=== PATIENT | male | born 1955 | race Caucasian/White ===

== ENCOUNTER 2016-03-07 13:26 | Emergency (ER) | payer MEDICARE ==
[2016-03-07] MEDS ORDERED: Dexamethasone IV* 4 MG/ML 1 ML (4 MG) IV SLOW PU ONE (14:18)
[2016-03-07] MEDS ORDERED: diPHENhydraMINE IV* 50 MG/ML 1 ml VIAL (BENADRYL) IV ONE (14:18)
[2016-03-07 14:19] LABS: Hematocrit 40 % (42-52); Hemoglobin 12.9 g/dl (14.0-18.0); Mean Corpuscular HGB Conc 32 g/dl (31-36); Mean Corpuscular Hemoglobin 26 pg (27-31); Mean Corpuscular Volume 81 fL (80-94); Mean Platelet Volume 9 um3 (7.4-10.4); Red Cell Distribution Width 15 % (10.5-15); White Blood Count 6.6 10^3/ul (3.5-10.8)
[2016-03-07 14:38] LABS: Albumin 3.2 g/dL (3.2-5.2); BUN/Creatinine Ratio 12.9 (8-20); C Reactive Protein 126.32 mg/L (< 5.00); Calcium 9.6 mg/dL (8.6-10.3); EGFR African American 148.4 (>60); EGFR Non-African American 115.4 (>60); Globulin 3.9 g/dL (2-4); Magnesium 1.7 mg/dL (1.9-2.7); Potassium 3.9 mmol/L (3.5-5.0); Total Bilirubin 0.5 mg/dL (0.2-1.0); Total Protein 7.1 g/dL (6.4-8.9)
--- NOTE | 2016-03-07 14:48 | RAD ---
INDICATION: Short of breath COMPARISON: August 16, 2015 TECHNIQUE: PA and lateral dual-energy views were obtained. FINDINGS: Bones/Soft Tissues: There are no acute bony findings. Cardiomediastinal: The cardiomediastinal silhouette is normal. Lungs: There are no infiltrates. Pleura: There are no pleural effusions. Other: None IMPRESSION: NO ACTIVE DISEASE.
[2016-03-07 15:08] LABS: Urine Bacteria 1+ (Absent); Urine Bilirubin Negative (Negative); Urine Glucose Negative (Negative); Urine Nitrite Negative (Negative)
[2016-03-07] MEDS ORDERED: Famotidine TAB* 20 MG PO ONE (16:13)
[2016-03-07 16:55] VITALS: BP 143/89
--- NOTE | 2016-03-07 16:58 | ED ---
Praneeth Ayers Erika, scribed for Ahmet Verde MD on 03/07/16 at 1430 . Skin Complaint - HPI Summary HPI Summary: Patient is a 60-year-old male presenting to the ED with a CC of new-onset rash. Patient reports that he noticed the rash in the inguinal area starting on 2016, which has since spread up his abdomen to the left side of his chest and to his posterior neck. The rash is red and burning, and pt denies pruritus. Pt also reports SOB increased from baseline as well as chills. He denies fevers, lip swelling, tongue swelling, difficulty swallowing, and feeling like his airway is closing. He does note that he recently started taking Xopenex. 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 - Onset/Duration: Started Days Ago, Atraumatic, Still Present Timing: Constant Onset Severity: Mild Current Severity: Moderate Pain Intensity: 7 Pain Scale Used: 0-10 Numeric Skin Location: Diffuse - upper body, left side Character: Pain - burning, Redness Alleviating Symptom(s): Unknown Related History: Recent change in medication - Xopenex - Additional Pertinent History Primary Care Physician: RASHAWN - Allergy/Home Medications Allergies/Adverse Reactions: Allergies Allergy/AdvReac Type Severity Reaction Status Date / Time No Known Allergies Allergy Verified 12/31/13 12:08 Home Medications: Home Medications Cyanocobalamin TAB* [Vitamin B12 TAB*] 500 mcg PO DAILY 03/07/16 [History Confirmed 03/07/16] Ergocalciferol [Vitamin D2] 50,000 unit PO WEEKLY 03/07/16 [History Confirmed ] Exenatide [Bydureon] 2 mg SC DAILY 03/07/16 [History Confirmed 03/07/16] Fluticasone NASAL SPRAY 50MCG* [Flonase NASAL SPRAY 50MCG*] 1 spray INH DAILY [History Confirmed 03/07/16] Furosemide TAB* [Lasix TAB*] 20 mg PO DAILY 03/07/16 [History Confirmed 03/07/16 ] Ibuprofen TAB* [Motrin TAB* 800 MG] 800 mg PO Q6H PRN 03/07/16 [History Confirmed 03/07/16] Levalbuterol 0.63MG/3ML NEB* [Xopenex 0.63MG/3ML NEB*] 0.63 mg INH Q6H 03/07/16 [History Confirmed 03/07/16] LevoCETirizine TAB (NF) [Xyzal TAB (NF)] 5 mg PO DAILY 03/07/16 [History Confirmed 03/07/16] Potassium Chlor TAB* [Klor Con ER TAB*] 10 meq PO DAILY 03/07/16 [History Confirmed 03/07/16] predniSONE TAB* [Deltasone TAB*] 20 mg PO DAILY 03/07/16 [History Confirmed ] PMH/Surg Hx/FS Hx/Imm Hx Endocrine/Hematology History: Reports: Hx Anticoagulant Therapy - Xeralto, Hx Diabetes, Hx Thyroid Disease Cardiovascular History: Reports: Hx Atrial Fibrillation, Hx Congestive Heart Failure - 2007, Hx Hypercholesterolemia, Hx Hypertension - TAKING MEDICATION Denies: Other Cardiovascular Problems/Disorders - DENIES Respiratory History: Reports: Hx Asthma, Hx Chronic Obstructive Pulmonary Disease (COPD), Hx Pneumonia, Hx Sleep Apnea Denies: Other Respiratory Problems/Disorders - DENIES GI History: Reports: Hx Gastroesophageal Reflux Disease, Hx Gastrointestinal Bleed - Admitted with GI bleed History: Denies: Hx Renal Disease, Other Problems/Disorders - DENIES Sensory History: Reports: Hx Contacts or Glasses - did not bring to hospital Opthamlomology History: Reports: Hx Contacts or Glasses - did not bring to hospital - Surgical History Surgery Procedure, Year, and Place: EAR DRUM SURGERY [address] [place] [address] Hx Anesthesia Reactions: No Infectious Disease History: Yes Infectious Disease History: Denies: Traveled Outside the [place] in Last 30 Days - Family History Family History: Denies FHx anesthesia reaction - Social History Alcohol Use: Occasionally Alcohol Amount: 2-4 drinks/week Hx Substance Use: No Substance Use Type: Reports: None Hx Tobacco Use: Yes Smoking Status (MU): Former Smoker Review of Systems Positive: Chills. Negative: Fever Positive: Shortness Of Breath Positive: Rash - red and burning, no itching All Other Systems Reviewed And Are Negative: Yes Physical Exam - Summary Physical Exam Summary: VITAL SIGNS: Reviewed. GENERAL: Patient is an obese male who is lying comfortable in the stretcher. Patient is not in any acute respiratory distress. HEAD AND FACE: No signs of trauma. No ecchymosis, hematomas or skull depressions. No sinus tenderness. EYES: PERRLA, EOMI x 2, No injected conjunctiva, no nystagmus. EARS: Hearing grossly intact. Ear canals and tympanic membranes are within normal limits. MOUTH: Oropharynx within normal limits. NECK: Supple, trachea is midline, no adenopathy, no JVD, no carotid bruit, no c- spine tenderness, neck with full ROM. CHEST: Symmetric, no tenderness at palpation LUNGS: Clear to auscultation bilaterally. No wheezing or crackles. CVS: Regular rate and rhythm, S1 and S2 present, no murmurs or gallops appreciated. ABDOMEN: Soft, non-tender. No signs of distention. No rebound no guarding, and no masses palpated. Bowel sounds are normal. EXTREMITIES: FROM in all major joints, no edema, no cyanosis or clubbing. NEURO: Alert and oriented x 3. No acute neurological deficits. Speech is normal and follows commands. SKIN: Dry and warm. Positive erythematous rash wich hives diffusely in abdomen, chest and back and inguinal area. Triage Information Reviewed: Yes Vital Signs On Initial Exam: Initial Vitals Temp Pulse Resp BP Pulse Ox 97.3 F 115 20 180/90 95 03/07/16 13:30 03/07/16 13:30 03/07/16 13:30 03/07/16 13:30 03/07/16 13:30 Vital Signs Reviewed: Yes Diagnostics - Vital Signs Vital Signs Temp Pulse Resp BP Pulse Ox 03/07/16 13:30 97.3 F 115 20 180/90 95 - Laboratory Lab Results: Lab Results 03/07/16 03/07/16 03/07/16 Range/Units 14:00 14:00 14:00 WBC 6.6 (3.5-10.8) 10^3/ul RBC 5.00 (4.0-5.4) 10^6/ul Hgb 12.9 L (14.0-18.0) g/dl Hct 40 L (42-52) % MCV 81 (80-94) fL MCH 26 L (27-31) pg MCHC 32 (31-36) g/dl RDW 15 (10.5-15) % Plt Count 178 (150-450) 10^3/ul MPV 9 (7.4-10.4) um3 Neut % (Auto) 75.4 (38-83) % Lymph % (Auto) 11.4 L (25-47) % [place] % (Auto) 11.0 H (1-9) % Eos % (Auto) 2.0 (0-6) % Baso % (Auto) 0.2 (0-2) % Absolute Neuts (auto) 5.0 (1.5-7.7) 10^3/ul Absolute Lymphs (auto) 0.8 L (1.0-4.8) 10^3/ul Absolute Monos (auto) 0.7 (0-0.8) 10^3/ul Absolute Eos (auto) 0.1 (0-0.6) 10^3/ul Absolute Basos (auto) 0 (0-0.2) 10^3/ul Absolute Nucleated RBC 0 10^3/ul Nucleated RBC % 0.1 APTT 30.9 (26.0-36.3) seconds Sodium 135 (133-145) mmol/L Potassium 3.9 (3.5-5.0) mmol/L Chloride 100 L (101-111) mmol/L Carbon Dioxide 28 (22-32) mmol/L Anion Gap 7 (2-11) mmol/L BUN 9 (6-24) mg/dL Creatinine 0.70 (0.67-1.17) mg/dL Est GFR ( Amer) 148.4 (>60) Est GFR (Non-Af Amer) 115.4 (>60) BUN/Creatinine Ratio 12.9 (8-20) Glucose 145 H (70-100) mg/dL Lactic Acid (0.5-2.0) mmol/L Calcium 9.6 (8.6-10.3) mg/dL Magnesium 1.7 L (1.9-2.7) mg/dL Total Bilirubin 0.50 (0.2-1.0) mg/dL AST 18 (13-39) U/L ALT 19 (7-52) U/L Alkaline Phosphatase 67 (34-104) U/L C-Reactive Protein 126.32 H (< 5.00) mg/L B-Natriuretic Peptide ( - 100) pg/mL Total Protein 7.1 (6.4-8.9) g/dL Albumin 3.2 (3.2-5.2) g/dL Globulin 3.9 (2-4) g/dL Albumin/Globulin Ratio 0.8 L (1-3) Amylase 66 (29-103) U/L Lipase 14 (11.0-82.0) U/L Urine Color Urine Appearance Urine pH (5-9) Ur Specific [place] (1.010-1.030) Urine Protein (Negative) Urine Ketones (Negative) Urine Blood (Negative) Urine Nitrate (Negative) Urine Bilirubin (Negative) Urine Urobilinogen (Negative) Ur Leukocyte Esterase (Negative) Urine WBC (Auto) (Absent) Urine RBC (Auto) (Absent) Ur Squamous Epith Cells (Absent) Urine Bacteria (Absent) Urine Glucose (Negative) 03/07/16 03/07/16 03/07/16 Range/Units 14:00 14:00 15:00 WBC (3.5-10.8) 10^3/ul RBC (4.0-5.4) 10^6/ul Hgb (14.0-18.0) g/dl Hct (42-52) % MCV (80-94) fL MCH (27-31) pg MCHC (31-36) g/dl RDW (10.5-15) % Plt Count (150-450) 10^3/ul MPV (7.4-10.4) um3 Neut % (Auto) (38-83) % Lymph % (Auto) (25-47) % [place] % (Auto) (1-9) % Eos % (Auto) (0-6) % Baso % (Auto) (0-2) % Absolute Neuts (auto) (1.5-7.7) 10^3/ul Absolute Lymphs (auto) (1.0-4.8) 10^3/ul Absolute Monos (auto) (0-0.8) 10^3/ul Absolute Eos (auto) (0-0.6) 10^3/ul Absolute Basos (auto) (0-0.2) 10^3/ul Absolute Nucleated RBC 10^3/ul Nucleated RBC % APTT (26.0-36.3) seconds Sodium (133-145) mmol/L Potassium (3.5-5.0) mmol/L Chloride (101-111) mmol/L Carbon Dioxide (22-32) mmol/L Anion Gap (2-11) mmol/L BUN (6-24) mg/dL Creatinine (0.67-1.17) mg/dL Est GFR ( Amer) (>60) Est GFR (Non-Af Amer) (>60) BUN/Creatinine Ratio (8-20) Glucose (70-100) mg/dL Lactic Acid 1.2 (0.5-2.0) mmol/L Calcium (8.6-10.3) mg/dL Magnesium (1.9-2.7) mg/dL Total Bilirubin (0.2-1.0) mg/dL AST (13-39) U/L ALT (7-52) U/L Alkaline Phosphatase (34-104) U/L C-Reactive Protein (< 5.00) mg/L B-Natriuretic Peptide 203 H ( - 100) pg/mL Total Protein (6.4-8.9) g/dL Albumin (3.2-5.2) g/dL Globulin (2-4) g/dL Albumin/Globulin Ratio (1-3) Amylase (29-103) U/L Lipase (11.0-82.0) U/L Urine Color Yellow Urine Appearance Clear Urine pH 6.0 (5-9) Ur Specific [place] 1.012 (1.010-1.030) Urine Protein 2+(100 mg/dl) H (Negative) Urine Ketones Negative (Negative) Urine Blood 1+ H (Negative) Urine Nitrate Negative (Negative) Urine Bilirubin Negative (Negative) Urine Urobilinogen Negative (Negative) Ur Leukocyte Esterase Negative (Negative) Urine WBC (Auto) Trace(0-5/hpf) (Absent) Urine RBC (Auto) 1+(3-5/hpf) H (Absent) Ur Squamous Epith Cells Present H (Absent) Urine Bacteria 1+ H (Absent) Urine Glucose Negative (Negative) Result Diagrams: 03/07/16 14:00 03/07/16 14:00 Lab Statement: Any lab studies that have been ordered have been reviewed, and results considered in the medical decision making process. - Radiology CXR Radiology Interpretation Completed By: Radiologist - IMPRESSION: NO ACTIVE DISEASE. - EKG 14:04 Cardiac Rate: NL - at 99 bpm EKG Rhythm: Sinus Rhythm EKG Comparison: No Significant Change - from 08/16/2015 Re-Evaluation - Re-Evaluation First Eval Re-Evaluation Time: 16:20 Change: Improved Course/Dx - Course Assessment/Plan: Patient is a 60-year-old male presenting to the ED with a CC of new-onset rash. Patient reports that he noticed the rash in the inguinal area starting on 03/02/2016, which has since spread up his abdomen to the left side of his chest and to his posterior neck. The rash is red and burning, and pt denies pruritus. Pt also reports SOB increased from baseline as well as chills. He denies fevers, lip swelling, tongue swelling, difficulty swallowing, and feeling like his airway is closing. He does note that he recently started taking Xopenex. Blood work wnl except for an slight slight anemia. Glucose of 145. UA shows no UTI. In the ED course he was given Decadron and benadryl as well as pepcid for an allergic reaction. At this point he feels better and no itching. He will be discharged home with f/u of PMD. Since he is diabetic he will continue taking Benadryl and Pepcid. No steroids. I discussed all my findings and test results with the patient. Patient understands and agrees. Patient was instructed to return to the emergency room immediately if any of the symptoms return or worsens. Patient understands and agrees. Plan of care was discussed with the patient and patient understands and agrees with the plan of care. All questions were answered at patient satisfaction. There were no further complaints or concerns. Patient was instructed to follow up with primary care physician within 3 to 5 days. Patient is hemodynamically stable. Patient is alert and oriented x 3. No acute neurological deficits. - Differential Diagnoses - Skin Complaint Differential Diagnoses: Cellulitis, Drug Rash, Eczema, Impetigo, Poison [place], Poison [place], Scabies, Tinea, Urticaria - Diagnoses Provider Diagnoses: Allergic reaction Discharge - Discharge Plan Condition: Stable Disposition: HOME Prescriptions: Famotidine TAB* [Pepcid TAB*] 20 mg PO BID #10 tab diPHENhydraMINE PO* [Benadryl PO*] 50 mg PO TID PRN #30 cap PRN Reason: Allergy Symptoms Patient Education Materials: General Allergic Reaction (ED) Referrals: Salazar Childress MD [Primary Care Provider] - The documentation as recorded by the Praneeth duff Erika accurately reflects the service I personally performed and the decisions made by me, Ahmet Verde MD.
== END 2016-03-07 16:54 | disposition home or self-care (01) ==
LOC: ED 13:26
DX: T78.40XA Allergy, unspecified, initial encounter (principal); X58.XXXA Exposure to other specified factors, initial encounter; Y92.9 Unspecified place or not applicable; Z87.891 Personal history of nicotine dependence; E11.9 Type 2 diabetes mellitus without complications; I48.91 Unspecified atrial fibrillation; Z79.01 Long term (current) use of anticoagulants; I50.9 Heart failure, unspecified; E78.00 Pure hypercholesterolemia, unspecified; I10 Essential (primary) hypertension; K21.9 Gastro-esophageal reflux disease without esophagitis; E07.9 Disorder of thyroid, unspecified
CPT/HCPCS: 36415; 71020; 80053; 81003; 81015; 82150; 83605; 83690; 83735; 83880; 85025; 85730; 86140; 87040; 87086; 93005; 96365; 96374; 96375; 99283; A9270-GY; J1100; J1200

== ENCOUNTER 2017-02-27 14:53 | Emergency (ER) | payer MEDICARE, MEDICAID ==
[2017-02-27 16:50] LABS: ABS Basophils 0.1 10^3/ul (0-0.2); ABS Eosinophils 0.1 10^3/ul (0-0.6); ABS Lymphocytes 0.7 10^3/ul (1.0-4.8); ABS Monocytes 0.6 10^3/ul (0-0.8); ABS Neutrophils 7.9 10^3/ul (1.5-7.7); ABS Nucleated RBC 0 10^3/ul; Eosinophil % 1.6 % (0-6); Hematocrit 45 % (42-52); Lymphocyte % 7.7 % (25-47); Mean Corpuscular HGB Conc 34 g/dl (31-36); Mean Corpuscular Hemoglobin 30 pg (27-31); Mean Corpuscular Volume 88 fL (80-94); Mean Platelet Volume 9 um3 (7.4-10.4); Nucleated Red Blood Cells % 0.1; Platelet Count 198 10^3/ul (150-450); Red Blood Count 5.05 10^6/ul (4.0-5.4); Red Cell Distribution Width 14 % (10.5-15); White Blood Count 9.4 10^3/ul (3.5-10.8)
[2017-02-27 17:04] LABS: EGFR Non-African American 52.1 (>60)
[2017-02-27] MEDS ORDERED: Ciprofloxacin TAB* 500 MG PO ONE (19:57)
[2017-02-27] MEDS ORDERED: metroNIDAZOLE TAB* 250 MG PO ONE (19:58)
--- NOTE | 2017-02-27 21:01 | ED ---
Carlos Ayers Natalie, scribed for Pedro Colon MD on 02/27/17 at 1621 . GI/ HPI - HPI Summary HPI Summary: The pt is a 61 y/o M presenting to the ED c/o bright red blood in stool starting last night. He has been having severe diarrhea for three days, feeling like he has to go almost every ten minutes. Pt additionally c/o SOB, tiredness, diaphoresis, and sharp cramping in low abd. He was on a blood thinner in the past, but was taken off of it because he was losing too much blood in stool. He has hx of hemorrhoids, Afib, and had a blood transfusion in July 2015. He hasn t had any liver problems in the past. - History of Current Complaint Chief Complaint: EDGIBleed Stated Complaint: BLOOD IN STOOL Hx Obtained From: Patient Onset/Duration: Started Hours Ago - started last night Current Severity: Mild Vaginal Bleeding Description: Bright Red Pain Intensity: 0 Location of Pain: Other - low abd pain Pain Characteristics: Sharp, Cramping Associated Signs and Symptoms: Positive: Bright Red Blood w/Stool, Diarrhea, Abdominal Pain - Additional Pertinent History Primary Care Physician: [id number] - Allergy/Home Medications Allergies/Adverse Reactions: Allergies Allergy/AdvReac Type Severity Reaction Status Date / Time No Known Allergies Allergy Verified 02/27/17 15:00 PMH/Surg Hx/FS Hx/Imm Hx Previously Healthy: No Endocrine/Hematology History: Reports: Hx Anticoagulant Therapy - Xeralto, Hx Diabetes, Hx Thyroid Disease - hypothyroid, reports no longer on meds Cardiovascular History: Reports: Hx Atrial Fibrillation, Hx Congestive Heart Failure, Hx Hypercholesterolemia, Hx Hypertension, Other Cardiovascular Problems /Disorders - hyperlipidemia, a-fib Respiratory History: Reports: Hx Asthma, Hx Chronic Obstructive Pulmonary Disease (COPD), Hx Pneumonia, Hx Sleep Apnea - cpap, Other Respiratory Problems/ Disorders - copd GI History: Reports: Hx Gastroesophageal Reflux Disease, Hx Gastrointestinal Bleed - Admitted with GI bleed, Other GI Disorders - gi bleed 2015 - admitted to [facility] [place] with dr jorge BUCKLEY History: Reports: Hx Kidney Stones - x3 -reports passed on their own Denies: Hx Dialysis, Hx Renal Disease, Other Problems/Disorders - DENIES Sensory History: Reports: Hx Contacts or Glasses - did not bring to hospital Opthamlomology History: Reports: Hx Contacts or Glasses - did not bring to hospital - Surgical History Surgery Procedure, Year, and Place: EAR DRUM SURGERY [address] [place] [address]. right ankle surgery [facility] [place] 2011. tongue biopsy and #30 tooth extraction - [place] Nov 2016 Hx Anesthesia Reactions: No Infectious Disease History: No Infectious Disease History: Denies: Traveled Outside the [place] in Last 30 Days - Family History Known Family History: Positive: Diabetes, Other - both parents passed from cancer Family History: Denies FHx anesthesia reaction - Social History Alcohol Use: Weekly Alcohol Amount: 2-4 whiskey drinks week Hx Substance Use: No Substance Use Type: Reports: None Hx Tobacco Use: Yes Smoking Status (MU): Former Smoker Amount Used/How Often: 1 ppd for 40 yrs Review of Systems Positive: Skin Diaphoresis Positive: Shortness Of Breath Positive: Diarrhea Neurological: Other - tired All Other Systems Reviewed And Are Negative: Yes Physical Exam - Summary Physical Exam Summary: Appearance: Well-appearing, Well-nourished Skin: Warm, dry, Extremities warm and well perfused HEENT: Normal, Mucus membranes moist, Extraocular movements intact, PERRL, No conjunctival pallor Neck: Supple, nontender Respiratory: Lung sounds clear to auscultation Cardiovascular: Normal Abdomen: Soft, nontender, no distension, No organomegaly Bowel: Present, Normal GI: Rectal exam: external hemorrhoids, guaiac positive, no evidence of any fistulous tracts or nyla bleeding. normal appearing stool. Musculoskeletal: Normal, Strength/ROM Intact Neurological: Normal, A&Ox3 Psychiatric: Normal Triage Information Reviewed: Yes Vital Signs On Initial Exam: Initial Vitals Temp Pulse Resp BP Pulse Ox 97.7 F 90 18 179/82 95 02/27/17 14:57 02/27/17 14:57 02/27/17 14:57 02/27/17 14:57 02/27/17 14:57 Vital Signs Reviewed: Yes Diagnostics - Vital Signs Vital Signs Temp Pulse Resp BP Pulse Ox 02/27/17 14:57 97.7 F 90 18 179/82 95 - Laboratory Lab Results: Lab Results 02/27/17 02/27/17 02/27/17 Range/Units 16:35 16:35 16:35 WBC 9.4 (3.5-10.8) 10^3/ul RBC 5.05 (4.0-5.4) 10^6/ul Hgb 15.0 (14.0-18.0) g/dl Hct 45 (42-52) % MCV 88 (80-94) fL MCH 30 (27-31) pg MCHC 34 (31-36) g/dl RDW 14 (10.5-15) % Plt Count 198 (150-450) 10^3/ul MPV 9 (7.4-10.4) um3 Neut % (Auto) 84.1 H (38-83) % Lymph % (Auto) 7.7 L (25-47) % [place] % (Auto) 6.1 (1-9) % Eos % (Auto) 1.6 (0-6) % Baso % (Auto) 0.5 (0-2) % Absolute Neuts (auto) 7.9 H (1.5-7.7) 10^3/ul Absolute Lymphs (auto) 0.7 L (1.0-4.8) 10^3/ul Absolute Monos (auto) 0.6 (0-0.8) 10^3/ul Absolute Eos (auto) 0.1 (0-0.6) 10^3/ul Absolute Basos (auto) 0.1 (0-0.2) 10^3/ul Absolute Nucleated RBC 0 10^3/ul Nucleated RBC % 0.1 INR (Anticoag Therapy) 1.00 (0.77-1.02) APTT 27.7 (26.0-36.3) seconds Sodium (133-145) mmol/L Potassium Chloride (101-111) mmol/L Carbon Dioxide (22-32) mmol/L Anion Gap (2-11) mmol/L BUN (6-24) mg/dL Creatinine (0.67-1.17) mg/dL Est GFR ( Amer) (>60) Est GFR (Non-Af Amer) (>60) BUN/Creatinine Ratio (8-20) Glucose (70-100) mg/dL Calcium (8.6-10.3) mg/dL Total Bilirubin (0.2-1.0) mg/dL AST ALT (7-52) U/L Alkaline Phosphatase (34-104) U/L Total Protein (6.4-8.9) g/dL Albumin (3.2-5.2) g/dL Globulin (2-4) g/dL Albumin/Globulin Ratio (1-3) Blood Type A Positive Antibody Screen Negative 02/27/17 02/27/17 Range/Units 16:35 17:50 WBC (3.5-10.8) 10^3/ul RBC (4.0-5.4) 10^6/ul Hgb (14.0-18.0) g/dl Hct (42-52) % MCV (80-94) fL MCH (27-31) pg MCHC (31-36) g/dl RDW (10.5-15) % Plt Count (150-450) 10^3/ul MPV (7.4-10.4) um3 Neut % (Auto) (38-83) % Lymph % (Auto) (25-47) % [place] % (Auto) (1-9) % Eos % (Auto) (0-6) % Baso % (Auto) (0-2) % Absolute Neuts (auto) (1.5-7.7) 10^3/ul Absolute Lymphs (auto) (1.0-4.8) 10^3/ul Absolute Monos (auto) (0-0.8) 10^3/ul Absolute Eos (auto) (0-0.6) 10^3/ul Absolute Basos (auto) (0-0.2) 10^3/ul Absolute Nucleated RBC 10^3/ul Nucleated RBC % INR (Anticoag Therapy) (0.77-1.02) APTT (26.0-36.3) seconds Sodium 132 L (133-145) mmol/L Potassium TNP 4.3 Chloride 95 L (101-111) mmol/L Carbon Dioxide 28 (22-32) mmol/L Anion Gap 9 (2-11) mmol/L BUN 20 (6-24) mg/dL Creatinine 1.39 H (0.67-1.17) mg/dL Est GFR ( Amer) 67.0 (>60) Est GFR (Non-Af Amer) 52.1 (>60) BUN/Creatinine Ratio 14.4 (8-20) Glucose 272 H (70-100) mg/dL Calcium 9.8 (8.6-10.3) mg/dL Total Bilirubin 0.40 (0.2-1.0) mg/dL AST TNP 22 ALT 29 (7-52) U/L Alkaline Phosphatase 77 (34-104) U/L Total Protein 7.5 (6.4-8.9) g/dL Albumin 3.8 (3.2-5.2) g/dL Globulin 3.7 (2-4) g/dL Albumin/Globulin Ratio 1.0 (1-3) Blood Type Antibody Screen Result Diagrams: 02/27/17 16:35 02/27/17 17:50 Lab Statement: Any lab studies that have been ordered have been reviewed, and results considered in the medical decision making process. - EKG 16:21 Cardiac Rate: NL EKG Rhythm: Sinus Rhythm - 95 BPM EKG Interpretation: RBBB. GIGU Course/Dx - Course Assessment/Plan: hemoglobin stable, in no acute distress, pt started on abx for treatment of persistent diarrhea and instructed to fu with GI physician. agrees to and understands dc instructions. - Diagnoses Provider Diagnoses: Rectal bleed Discharge - Discharge Plan Condition: Improved Disposition: HOME Prescriptions: Ciprofloxacin TAB* [Cipro 500 MG TAB*] 500 mg PO BID #14 tab Metronidazole [Flagyl 500 MG TAB] 500 mg PO TID #21 tab Patient Education Materials: Acute Diarrhea (ED), Rectal Bleeding (ED) Referrals: Salazar Childress MD [Primary Care Provider] - Keith Richard MD [Medical Doctor] - Timothy Slater MD [Medical Doctor] - Additional Instructions: PLEASE MAKE AN APPOINTMENT FIRST THING IN THE MORNING TO BE SEEN BY A GI PHYSICIAN WITHIN 1-2 WEEKS PLEASE RETURN IMMEDIATELY TO THE ER IF YOU HAVE ANY WORSENING OR CONCERNING SYMPTOMS PLEASE MAKE AN APPOINTMENT TO BE SEEN BY YOUR PRIMARY CARE DOCTOR WITHIN 1 WEEK The documentation as recorded by the Carlos duff Natalie accurately reflects the service I personally performed and the decisions made by me, Pedro Colon MD.
[2017-02-27 21:12] VITALS: BP 138/55
--- NOTE | 2017-02-28 09:10 | PN ---
Progress Note - Progress Note Date of Service: 02/27/17 Note: patient diagnosed with rectal bleed. placed on cipro flagyl. stool occult blood is positive on results. no further action required at this time.
== END 2017-02-27 21:15 | disposition home or self-care (01) ==
LOC: ED 14:53
DX: K62.5 Hemorrhage of anus and rectum (principal); Z87.891 Personal history of nicotine dependence; Z80.9 Family history of malignant neoplasm, unspecified
CPT/HCPCS: 36415; 80053; 82272; 85025; 85610; 85730; 86850; 86900; 86901; 93005; 99283; A9270-GY

== ENCOUNTER 2017-12-24 11:32 | Inpatient (IN) | payer MEDICARE, MEDICAID ==
--- NOTE | 2017-12-24 12:03 | ED ---
Lower Extremity - HPI Summary HPI Summary: This patient is a 62 year old M presenting to [facility] accompanied by family with a chief complaint of LLE pain that began on 12/21/2017. Patient states if he is unsure if he fell when he had his episode of vomiting that night. The patient rates the pain 10/10 in severity. Symptoms aggravated by walking. Symptoms alleviated by nothing. Patient reports rash, vomiting (once), chills, diaphoresis, and SOB. Patient denies numbness, weakness, abd pain, and CP. - History of Current Complaint Chief Complaint: EDExtremityLower Stated Complaint: UNALBLE TO WALK Time Seen by Provider: 12/24/17 11:52 Hx Obtained From: Patient Mechanism Of Injury: Unknown Onset of Pain: Immediate Onset/Duration: Still Present Severity Initially: Severe Severity Currently: Severe Pain Intensity: 8 Pain Scale Used: 0-10 Numeric Timing: Constant Location: Is Discrete @ - LLE Character Of Pain: Burning Associated Signs And Symptoms: Positive: Other - Positive vomiting (once), chills, diaphoresis, and SOB. Negative numbness, weakness, abd pain, and CP. Aggravating Factor(s): Movement Alleviating Factor(s): Nothing Able to Bear Weight: No - Allergies/Home Medications Allergies/Adverse Reactions: Allergies Allergy/AdvReac Type Severity Reaction Status Date / Time metformin Allergy Rash Verified 12/24/17 14:49 Home Medications: Home Medications Cholecalciferol (Vitamin D3) [Vitamin D3] 2,000 units PO DAILY 12/24/17 [ History Confirmed 12/24/17] PMH/Surg Hx/FS Hx/Imm Hx Previously Healthy: No Endocrine/Hematology History: Reports: Hx Anticoagulant Therapy - Xeralto, Hx Diabetes, Hx Thyroid Disease - hypothyroid, reports no longer on meds Cardiovascular History: Reports: Hx Atrial Fibrillation, Hx Congestive Heart Failure, Hx Hypercholesterolemia, Hx Hypertension, Other Cardiovascular Problems /Disorders - hyperlipidemia, a-fib Respiratory History: Reports: Hx Asthma, Hx Chronic Obstructive Pulmonary Disease (COPD), Hx Pneumonia, Hx Sleep Apnea - cpap, Other Respiratory Problems/ Disorders - copd GI History: Reports: Hx Gastroesophageal Reflux Disease, Hx Gastrointestinal Bleed - Admitted with GI bleed, Other GI Disorders - gi bleed 2016 [place] [facility] [place] History: Reports: Hx Kidney Stones - x3 -reports passed on their own Denies: Hx Dialysis, Hx Renal Disease, Other Problems/Disorders - DENIES Sensory History: Reports: Hx Contacts or Glasses - did not bring to hospital Opthamlomology History: Reports: Hx Contacts or Glasses - did not bring to hospital - Surgical History Surgery Procedure, Year, and Place: EAR DRUM SURGERY [address] [place] [address]. [place] [facility] [place] #30 tooth extraction [place] Nov 2016 Hx Anesthesia Reactions: No Infectious Disease History: No Infectious Disease History: Denies: Traveled Outside the [place] in Last 30 Days - Family History Known Family History: Positive: Diabetes, Other - both parents passed from cancer Family History: Denies FHx anesthesia reaction - Social History Occupation: Disabled Lives: Alone Alcohol Use: Weekly Alcohol Amount: 2-4 whiskey drinks week Hx Substance Use: No Substance Use Type: Reports: None Hx Tobacco Use: Yes Smoking Status (MU): Former Smoker Amount Used/How Often: 1 ppd for 40 yrs Review of Systems Positive: Chills, Skin Diaphoresis Negative: Chest Pain Positive: Shortness Of Breath Positive: Vomiting. Negative: Abdominal Pain Positive: Rash Negative: Weakness, Numbness All Other Systems Reviewed And Are Negative: No Physical Exam - Summary Physical Exam Summary: Appearance: Well appearing, no pain distress, morbid obesity Skin: dry, Stasis dermatitis on bother lower legs. Warmth. Multiple excoriations with dermatitis. Redness to the knee with warmth and tenderness Head/face: normal Eyes: EOMI, ALISON ENT: mucous membranes moist Neck: supple, non-tender Respiratory: CTA, breath sounds present Cardiovascular: RRR, pulses symmetrical Abdomen: non-tender, soft Bowel Sounds: present Musculoskeletal: normal, strength/ROM intact Neuro: normal, sensory motor intact, A&Ox3 Triage Information Reviewed: Yes Vital Signs On Initial Exam: Initial Vitals Temp Pulse Resp BP Pulse Ox 98.3 F 88 20 118/53 93 12/24/17 11:38 12/24/17 11:38 12/24/17 11:38 12/24/17 11:38 12/24/17 11:38 Vital Signs Reviewed: Yes Diagnostics - Vital Signs Vital Signs Temp Pulse Resp BP Pulse Ox 12/24/17 11:38 98.3 F 88 20 118/53 93 - Laboratory Result Diagrams: 12/24/17 12:14 12/24/17 12:14 Lab Statement: Any lab studies that have been ordered have been reviewed, and results considered in the medical decision making process. - CT Lumbar Spine CT CT Interpretation Completed By: Radiologist Summary of CT Findings: Lumbar spine CT reveals, per radiologist, 1. There is multilevel degenerative disc disease involving the lumbar spine causing varying degrees of central canal and neural foraminal stenoses. This appears on CT to be most severe at L2/L3, L3/L4 and L4/L5. At L4/L5 there is vacuum disc phenomenon similar to the August 19, 2016 CT examination. 2. Calcified atherosclerosis of the lower abdominal aorta extending into the bilateral common iliac arteries. ED physician has reviewed this radiology report. - Additional Comments Diagnostic Additional Comments: Lower extremity US reveals, per radiologist, 1. Where visualized adequately there is no evidence of deep vein thrombosis. Due to swelling and patient body habitus the distal femoral vein and infrapopliteal veins are not well visualized. 2. Subcutaneous edema and mild left inguinal lymphadenopathy. ED physician has reviewed this radiology report. Re-Evaluation - Re-Evaluation First Eval Re-Evaluation Time: 13:40 Change: Improved Comment: Patient reports his syptoms are slightly improved Lower Extremity Course/Dx - Course Course Of Treatment: Morbidly obese diabetic weighing approximately 400 pounds presents with left lower extremity discomfort that was likely atraumatic. He does have extensive lumbar disease so radiculopathy is an option. DVT scan is negative. He has diffuse erythema, edema and evidence of wounds on his anterior left rodriguez that may be a source for cellulitis. Started IV clindamycin , blood cultures drawn. Admit through hospitalist service. - Diagnoses Differential Diagnosis/HQI/PQRI: Positive: Other - Lumbar radiculopathy, cellulitis, stasis dermatitis, DKA Provider Diagnoses: Lumbar foraminal stenosis, Left leg pain, Cellulitis, Diabetes mellitus with hyperglycemia - Physician Notifications Discussed Care Of Patient With: Bharat Ko Time Discussed With Above Provider: 13:45 Instructed by Provider To: Other - Consult with Dr. Ko (hospitalist) at 1345. He agrees to admit the patient for further evaluation. Discharge - Sign-Out/Discharge Documenting (check all that apply): Patient Departure - Admit to [facility] - Discharge Plan Condition: Fair Disposition: ADMITTED TO [facility] Referrals: Salazar Childress MD [Primary Care Provider] - - Billing Disposition and Condition Condition: FAIR Disposition: Admitted to [facility] - Attestation Statements Document Initiated by Scribe: Yes Documenting Scribe: Lynda Dunn Provider For Whom Scribe is Documenting (Include Credential): Dr. Emanuel Clancy MD Scribe Attestation: ILynda, scribed for Dr. Emanuel Clancy MD on 12/24/17 at 1457. Scribe Documentation Reviewed: Yes Provider Attestation: The documentation as recorded by the Lynda duff accurately reflects the service I personally performed and the decisions made by ny, Dr. Emanuel Clancy MD
[2017-12-24] MEDS ORDERED: NS 0.9% 1000 ML* 1,000 ML IV ONE ×2 (12:06→14:39)
[2017-12-24] MEDS ORDERED: Morphine VIAL* 4 MG/ML VIAL (1 ml vial) IV ONE (12:06)
[2017-12-24 12:23] LABS: ABS Basophils 0 10^3/ul (0-0.2); ABS Eosinophils 0 10^3/ul (0-0.6); ABS Lymphocytes 0.3 10^3/ul (1.0-4.8); ABS Monocytes 0.4 10^3/ul (0-0.8); ABS Nucleated RBC 0 10^3/ul; Eosinophil % 0.5 % (0-6); Hematocrit 38 % (42-52); Hemoglobin 12.8 g/dl (14.0-18.0); Lymphocyte % 3.5 % (25-47); Mean Corpuscular HGB Conc 34 g/dl (31-36); Mean Corpuscular Hemoglobin 31 pg (27-31); Mean Corpuscular Volume 91 fL (80-94); Mean Platelet Volume 8.2 fL (7.4-10.4); Nucleated Red Blood Cells % 0; Platelet Count 201 10^3/ul (150-450); Red Blood Count 4.14 10^6/ul (4.00-5.40); Red Cell Distribution Width 14 % (10.5-15); White Blood Count 8.8 10^3/ul (3.5-10.8)
[2017-12-24 12:45] LABS: EGFR Non-African American 57.7 (>60)
--- NOTE | 2017-12-24 12:47 | RAD ---
INDICATION: Left leg pain COMPARISON: CT of the abdomen and pelvis dated August 19, 2016 TECHNIQUE: Contiguous axial sections were obtained beginning lower thoracic vertebra and continuing through the sacrum. Images were reconstructed in the sagittal and coronal planes. FINDINGS: Image quality is limited due to beam attenuation caused by the patient's large body habitus. In the sagittal view the vertebral bodies are appropriately aligned. There is no evidence of an acute compression fracture or severe spondylolisthesis. There is mild loss of intervertebral disc height from the lower thoracic spine through to the lumbar level. There is gas seen at L4/L5 as well as a focus of gas along the inferior endplate of the L4 vertebral body. This appearance is similar to the August 19, 2016 CT examination. The sagittal view images provide limited quality imaging of the soft tissues. There is broad-based disc protrusion at L2/L3 extending into the left neural foramen causing a mild degree of central canal stenosis and moderate left neural foraminal stenosis. There is broad-based disc protrusion at L3/L4 causing bilateral neural foraminal stenosis and central canal stenosis. There is broad-based disc protrusion at L4/L5 combining with facet arthropathy to cause a moderate degree of bilateral neural foraminal stenosis. The visualized lung bases are grossly clear. The visualized portions of the solid organs and bowel are grossly normal. There is coarse atherosclerotic calcification of the lower abdominal aorta extending into the bilateral iliac arteries. IMPRESSION: 1. There is multilevel degenerative disc disease involving the lumbar spine causing varying degrees of central canal and neural foraminal stenoses. This appears on CT to be most severe at L2/L3, L3/L4 and L4/L5. At L4/L5 there is vacuum disc phenomenon similar to the August 19, 2016 CT examination. 2. Calcified atherosclerosis of the lower abdominal aorta extending into the bilateral common iliac arteries.
--- NOTE | 2017-12-24 13:01 | RAD ---
HISTORY: Left lower extremity pain, swelling and erythema TECHNIQUE: Multiple transverse and longitudinal ultrasound images were obtained of the veins of the left lower extremity using grayscale, color Doppler, and spectral Doppler imaging with and without compression and with augmentation. FINDINGS: Due to superficial edema and patient body habitus the distal femoral vein and calf veins are not well visualized. VEINS: The common femoral vein, deep femoral vein, proximal/mid level femoral vein and popliteal vein are compressible throughout their course, with normal flow on color Doppler imaging and normal response to augmentation on spectral Doppler imaging. SOFT TISSUES: There is infiltration of the subcutaneous tissue overlying the more inferior left leg. There appears to be subcutaneous lymph nodes measuring up to 1 cm in short axis diameter at the left inguinal area. IMPRESSION: 1. Where visualized adequately there is no evidence of deep vein thrombosis. Due to swelling and patient body habitus the distal femoral vein and infrapopliteal veins are not well visualized. 2. Subcutaneous edema and mild left inguinal lymphadenopathy.
[2017-12-24 13:33] LABS: Urine Appearance Clear; Urine Blood 1+ (Negative); Urine Color Yellow; Urine Ketones Negative (Negative); Urine Protein Negative (Negative); Urine Red Blood Cell Trace(0-2/hpf) (Absent); Urine Specific Gravity 1.015 (1.010-1.030); Urine Urobilinogen Negative (Negative); Urine White Blood Cell Trace(0-5/hpf) (Absent)
[2017-12-24] MEDS ORDERED: Clindamycin 900 MG/D5W BAG(*) 900 MG/50 ML BAG IVPB ONE (13:45)
[2017-12-24] MEDS ORDERED: Albuterol HFA INHALER* 8 gm MDI INH PRN (14:39)
[2017-12-24] MEDS ORDERED: Levalbuterol 0.63MG/3ML NEB* UNIT OF USE INH PRN (14:39)
[2017-12-24] MEDS ORDERED: Acetaminophen TAB* 325 MG PO PRN (14:42)
[2017-12-24] MEDS ORDERED: Dextrose 50% Syringe 50 ML* 25 GM/50 ML SYRINGE IV PUSH PRN (14:42)
[2017-12-24] MEDS: Cefepime 2 GM in Dextrose(*) 2 GM/50 ML BAG IV SCH (16:44)
[2017-12-24] MEDS: Morphine VIAL* 4 MG/ML VIAL (1 ml vial) IV PRN (16:44)
[2017-12-24] MEDS ORDERED: Cefepime 2 GM in Dextrose(*) 2 GM/50 ML BAG IV SCH (17:00)
[2017-12-24] MEDS: Insulin LISPRO* 1 UNITS UNIT SUBCUT SCH ×2 (17:14→21:02)
--- NOTE | 2017-12-24 17:35 | HP ---
CC: Dr. Childress * ADMISSION HISTORY AND PHYSICAL: DATE OF ADMISSION: 12/24/17 PRIMARY CARE PROVIDER: Dr. Childress. HEALTHCARE PROXY: His sister, Neida. CODE STATUS: Full. SOURCE OF INFORMATION: History obtained from interview with the patient. RELIABILITY: Fair. CHIEF COMPLAINT: Left lower extremity pain. HISTORY OF PRESENT ILLNESS: This is a 62-year-old gentleman with history of morbid obesity as well as insulin-dependent type 2 diabetes mellitus, who had been in his usual state of health until the evening of 12/21/17 when he woke up with sudden onset emesis, unsure if he had a fall on the way to the bathroom, but had multiple episodes of emesis following the next day with increased blood glucose and new left lower leg pain. He noted that his leg had become more swollen and painful, which increased over the following days. He noted over the last 3 days prior to presentation he has had both cold chills, sweating overnight as well as rigors. He did not check his temperature at home. He has some notable skin breakdown in his left lower extremity that he notes has been there for "quite a while" and he follows with "the skin person" although has not been there for quite some time and washes his legs with peroxide and alcohol. Because of increasing lower extremity swelling, erythema and pain, the patient presented to the emergency room. PAST MEDICAL HISTORY: Includes atrial fibrillation, not on anticoagulation, status post bleeding duodenal ulcer; COPD; insulin-dependent type 2 diabetes mellitus; hypertension; morbid obesity; upper GI bleed secondary to duodenal ulcer; he had a broken bone in his right lower extremity; and obstructive sleep apnea, on CPAP. MEDICATIONS: The patient brought all his home medications, which were reconciled in the emergency room, include: 1. Cholecalciferol 2000 units daily. 2. Albuterol 2 puffs every 4 hours as needed. 3. Acetaminophen 1000 mg every 6 hours as needed. 4. Multaq 400 mg twice daily. 5. Cyanocobalamin 500 mcg twice daily. 6. Glargine 40 units in the morning. 7. Ferrous sulfate 325 mg twice daily. 8. Metoprolol tartrate 25 mg twice daily. 9. Xopenex 0.63 mg every 6 hours as needed. 10. Simvastatin 40 mg in the evening. 11. Potassium chloride 10 mEq in the morning. 12. Omeprazole 40 mg twice daily. 13. Spiriva 2 puffs twice daily, dose unknown. ALLERGIES: To METFORMIN, which causes a rash. FAMILY HISTORY: His father and his mother both had lung cancer. His father also had throat cancer. SOCIAL HISTORY: He is disabled since 2008. He quit tobacco in 2008 as well. He used to smoke 1 pack per day for 40 years. He has occasional alcohol, approximately 1 whiskey per week. REVIEW OF SYSTEMS: As per HPI including rigors, chills, night sweats, left lower extremity pain and erythema, and 1 episode of emesis. Otherwise, all other systems negative. PHYSICAL EXAMINATION GENERAL: Obese gentleman, sitting up in bed, interactive, pleasant, in no apparent distress. VITAL SIGNS: In the emergency room, 106/63, retaken with blood pressure cuff off forearm and on his biceps is 140/73; heart rate is 85; respiratory rate is 22; he is 95% on room air; T-max is 98.3. HEENT: Oropharynx is clear. He has moist mucous membranes. His sclerae are anicteric. NECK: He no palpable supraclavicular lymphadenopathy or cervical lymphadenopathy. LUNGS: Clear to auscultation. HEART: He has a regular rate and rhythm. No murmurs, rubs, or gallops. ABDOMEN: Soft, nontender, and nondistended. EXTREMITIES: Warm and well perfused. His left lower extremity has erythema extending from the plantar surface of his foot up his leg and extending over his proximal leg and into his groin, most significant in his pretibial area with mild areas of skin breakdown pretibial. He has at least 1+ bilateral pitting edema, closer to 2+ on his left lower extremity. NEUROLOGIC: He is alert and oriented x3. His cranial nerves II through XII are intact. DIAGNOSTIC STUDIES/LAB DATA: Data reviewed. Sodium is 126, chloride is 89, BUN is 27, creatinine is 1.27, blood glucose 293 on presentation. His white blood cell count is 8.8. Data reviewed. Venous Doppler study, impression: Where visualized adequately, there is no evidence of DVT. Due to swelling and the patient's body habitus, distal femoral vein and infrapopliteal veins are not well visualized. Subcutaneous edema and mild left inguinal lymphadenopathy. ASSESSMENT AND PLAN: This is a 62-year-old man presenting with left lower extremity pain in the setting of chills and rigors. 1. Left lower extremity pain. Suspect in the setting of cellulitis as evidenced by physical exam as well as chills and rigors. Likely source is skin breakdown in the pretibial region. He has received clindamycin in the emergency room. We will continue cefepime and vancomycin this evening in the setting of type 2 diabetes that requires insulin. The area was not demarcated as it encompasses essentially the entire left lower extremity up into the patient's groin, but not encompassing his testicles. He has received 1 L of normal saline in the emergency room. He will receive a second liter bolus now, although his blood pressure is stable and he has no signs of sepsis including no white blood cell count, no fever. His blood cultures have been obtained and are pending. 2. Hyponatremia. Last 2 checks have also been hyponatremic. I suspect this is potentially worse in the setting of dehydration given his low chloride as well as kidney injury. Another liter of normal saline this evening and repeat tomorrow. 3. Chronic kidney disease. Dose meds accordingly. 4. Insulin-dependent type 2 diabetes mellitus. Suspect worsening control in the setting of infection. Check hemoglobin A1c. Continue Lantus as well as sliding scale insulin. 5. Obstructive sleep apnea. Continue CPAP. 6. DVT prophylaxis: Heparin subcu. [id number]/[facility] #: [id number] SALVATORE
[2017-12-24] MEDS ORDERED: Vancomycin(*) 2,000 MG in NS 0.9% 500 ML* 500 ML IVPB ONE (18:00)
[2017-12-24] MEDS ORDERED: Vancomycin per Pharmacy* NOTE FOLLOW UP SCH (18:00)
[2017-12-24] MEDS: Atorvastatin* 20 MG TAB PO SCH (18:30)
[2017-12-24] MEDS: oxyCODONE/Acetamin 5/325 MG* TAB PO PRN (20:28)
[2017-12-24] MEDS: Omeprazole CAP* 20 MG PO SCH (21:00)
[2017-12-24] MEDS: Cyanocobalamin TAB* 500 MCG PO SCH (21:01)
[2017-12-24] MEDS: Ferrous Sulfate TAB* 325 MG PO SCH (21:01)
[2017-12-24] MEDS: Dronedarone TAB* 400 MG PO SCH (21:01)
[2017-12-24] MEDS: Metoprolol Tartrate TAB* 25 MG PO SCH (21:02)
[2017-12-24] MEDS: Heparin VIAL(*) 5000 UNITS/ML VIAL (FIVE THOUSAND) SUBCUT SCH (21:04)
[2017-12-25] MEDS: Morphine VIAL* 4 MG/ML VIAL (1 ml vial) IV PRN ×2 (01:20→17:04)
[2017-12-25] MEDS: oxyCODONE/Acetamin 5/325 MG* TAB PO PRN ×3 (04:21→19:29)
[2017-12-25] MEDS: Cefepime 2 GM in Dextrose(*) 2 GM/50 ML BAG IV SCH ×2 (04:21→17:05)
[2017-12-25] MEDS: Heparin VIAL(*) 5000 UNITS/ML VIAL (FIVE THOUSAND) SUBCUT SCH ×3 (05:51→21:08)
[2017-12-25] MEDS: Vancomycin(*) 1,500 MG in NS 0.9% 250 ML* 250 ML IVPB SCH ×2 (05:51→18:00)
[2017-12-25 06:56] LABS: ABS Basophils 0.1 10^3/ul (0-0.2); ABS Eosinophils 0.1 10^3/ul (0-0.6); ABS Lymphocytes 0.6 10^3/ul (1.0-4.8); ABS Monocytes 0.7 10^3/ul (0-0.8); ABS Neutrophils 8.4 10^3/ul (1.5-7.7); ABS Nucleated RBC 0 10^3/ul; Eosinophil % 1.3 % (0-6); Hematocrit 37 % (42-52); Hemoglobin 12.5 g/dl (14.0-18.0); Lymphocyte % 5.7 % (25-47); Mean Corpuscular HGB Conc 34 g/dl (31-36); Mean Corpuscular Hemoglobin 31 pg (27-31); Mean Corpuscular Volume 91 fL (80-94); Mean Platelet Volume 8.3 fL (7.4-10.4); Nucleated Red Blood Cells % 0; Platelet Count 223 10^3/ul (150-450); Red Blood Count 4.09 10^6/ul (4.00-5.40); Red Cell Distribution Width 14 % (10.5-15); White Blood Count 9.8 10^3/ul (3.5-10.8)
[2017-12-25 07:15] LABS: EGFR Non-African American 67.3 (>60)
[2017-12-25] MEDS: Cyanocobalamin TAB* 500 MCG PO SCH ×2 (07:56→21:07)
[2017-12-25] MEDS: Metoprolol Tartrate TAB* 25 MG PO SCH ×2 (07:56→21:06)
[2017-12-25] MEDS: Insulin LISPRO* 1 UNITS UNIT SUBCUT SCH ×4 (07:56→21:07)
[2017-12-25] MEDS: Potassium Chlor TAB* 10 MEQ TAB.ER PO SCH (07:56)
[2017-12-25] MEDS: Ferrous Sulfate TAB* 325 MG PO SCH ×2 (07:56→21:05)
[2017-12-25] MEDS: Dronedarone TAB* 400 MG PO SCH ×2 (07:56→21:06)
[2017-12-25] MEDS: Omeprazole CAP* 20 MG PO SCH ×2 (07:56→21:05)
[2017-12-25] MEDS ORDERED: Insulin GLARGINE(*) 1 UNITS UNIT SUBCUT SCH (09:00)
--- NOTE | 2017-12-25 09:36 | PN ---
Subjective Date of Service: 12/25/17 Interval History: Feels better, more energy, Pain in LLE better but still present Feels LLE swelling improved Objective Active Medications: Acetaminophen (Tylenol Tab*) 650 mg PO Q6H PRN PRN Reason: PAIN Albuterol (Ventolin Hfa Inhaler*) 2 puff INH Q4H PRN PRN Reason: SHORTNESS OF BREATH Atorvastatin Calcium (Lipitor*) 20 mg PO QPM [facility] Last Admin: 12/24/17 18:30 Dose: 20 mg Cyanocobalamin (Vitamin B12 Tab*) 500 mcg PO BID [facility] Last Admin: 12/25/17 07:56 Dose: 500 mcg Dextrose (D50w Syringe 50 Ml*) 12.5 gm IV PUSH .FOR FS < 60 - SS PRN PRN Reason: FS < 60 Dronedarone (Multaq Tab*) 400 mg PO BID [facility] Last Admin: 12/25/17 07:56 Dose: 400 mg Ferrous Sulfate (Ferrous Sulfate Tab*) 325 mg PO BID [facility] Last Admin: 12/25/17 07:56 Dose: 325 mg Heparin Sodium (Porcine) (Heparin Vial(*)) 5,000 units SUBCUT Q8HR [facility] Last Admin: 12/25/17 05:51 Dose: 5,000 units Cefepime HCl (Maxipime 2 Gm In Dextrose Duplex (*)) 2 gm in 50 mls @ 100 mls/ hr IV Q12H [facility] Last Admin: 12/25/17 04:21 Dose: 100 mls/hr Vancomycin HCl 1,500 mg/ (Sodium Chloride) 250 mls @ 166.667 mls/hr IVPB Q12H [facility] Last Admin: 12/25/17 05:51 Dose: 166.667 mls/hr Insulin Glargine (Lantus(*)) 40 units SUBCUT QAM [facility] Last Admin: 12/25/17 07:57 Dose: 40 units Insulin Human Lispro (Humalog*) 0 units SUBCUT ACHS [facility]; Protocol Last Admin: 12/25/17 07:56 Dose: 3 units Levalbuterol HCl (Xopenex 0.63mg/3ml Neb*) 0.63 mg INH Q6H PRN PRN Reason: SHORTNESS OF BREATH Metoprolol Tartrate (Lopressor Tab*) 25 mg PO BID [facility] Last Admin: 12/25/17 07:56 Dose: 25 mg Morphine Sulfate (Morphine Vial*) 4 mg IV Q4H PRN PRN Reason: PAIN Last Admin: 12/25/17 01:20 EDT Dose: 4 mg Omeprazole (Prilosec Cap*) 40 mg PO BID [facility] Last Admin: 12/25/17 07:56 Dose: 40 mg Oxycodone/Acetaminophen (Percocet 5/325 Tab*) 1 tab PO Q4H PRN PRN Reason: Pain Last Admin: 12/25/17 04:21 Dose: 1 tab Pharmacy Consult (Vancomycin Per Pharmacy*) 1 note FOLLOW UP .VANC PER PHARMACY [facility] Pharmacy Profile Note (Vancomycin Trough Check) 1 note FOLLOW UP 05 ONE Stop: 12/26/17 05:31 Potassium Chloride (Klor Con Er Tab*) 10 meq PO QAM [facility] Last Admin: 12/25/17 07:56 Dose: 10 meq Vital Signs - 8 hr 12/25/17 12/25/17 12/25/17 01:52 EST 04:21 04:36 Temperature 97.5 F Pulse Rate 78 Respiratory 18 20 20 Rate Blood Pressure 118/61 (mmHg) O2 Sat by Pulse 97 Oximetry 12/25/17 12/25/17 05:56 07:30 Temperature 98.1 F Pulse Rate 84 Respiratory 18 18 Rate Blood Pressure 124/81 (mmHg) O2 Sat by Pulse 97 Oximetry Oxygen Devices in Use Now: None Appearance: obese, NAD Eyes: No Scleral Icterus, PERRLA Neck: NL Appearance and Movements; NL JVP, Trachea Midline Respiratory: Symmetrical Chest Expansion and Respiratory Effort, Clear to Auscultation Cardiovascular: NL Sounds; No Murmurs; No JVD, RRR Abdominal: NL Sounds; No Tenderness; No Distention, No Hepatosplenomegaly Lymphatic: No Cervical Adenopathy Extremities: - - 2+ LLE edema, non pitting edema on right Skin: - - erythemea from ankle to 6 inches above left knee, very faint erythema mostly improved on left thigh and groin area Neurological: Alert and Oriented x 3 Result Diagrams: 12/25/17 06:21 12/25/17 06:21 Assess/Plan/Problems-Billing Assessment: 62 yo M h/o IDDM presents with extensive LLE cellulitis - Patient Problems (1) Cellulitis Comment: c/w cefepime and vanco given IDDM and extent of involvement consider transition to oral tomorrow based on improvement (2) Atrial fibrillation Comment: not on AC 2/2 previous GIB c/w multaq and metoprolol (3) MAKAYLA (obstructive sleep apnea) Comment: Continue CPAP (4) HTN (hypertension) Comment: c/w metoprolol (5) DM2 (diabetes mellitus, type 2) Comment: Hba1c 8.8% 1 time 4 units lantus this AM then increase to 44 units daily tomorrow c/w sliding scale (6) DVT prophylaxis Comment: HSQ
[2017-12-25] MEDS ORDERED: Insulin GLARGINE(*) 1 UNITS UNIT SUBCUT ONE (09:38)
[2017-12-25] MEDS ORDERED: NS 0.9% 1000 ML* 400 ML IV SCH (09:45)
[2017-12-25] MEDS: Magnesium Sulfate 2 GM IV* 2 GM/50 ML BAG IVPB ONE (10:54)
[2017-12-25] MEDS: Atorvastatin* 20 MG TAB PO SCH (17:22)
[2017-12-25] MEDS: diPHENhydraMINE PO* 25 MG PO ONE (23:13)
[2017-12-26] MEDS: diPHENhydraMINE PO* 25 MG PO ONE (00:18)
[2017-12-26] MEDS: Morphine VIAL* 4 MG/ML VIAL (1 ml vial) IV PRN (00:55)
[2017-12-26] MEDS: Cefepime 2 GM in Dextrose(*) 2 GM/50 ML BAG IV SCH (04:20)
[2017-12-26] MEDS ORDERED: Vancomycin Trough Check NOTE FOLLOW UP ONE (05:30)
[2017-12-26 08:00] LABS: EGFR Non-African American 68.1 (>60)
[2017-12-26 08:09] LABS: Vancomycin Trough 9.1 mcg/mL
[2017-12-26] MEDS: Insulin LISPRO* 1 UNITS UNIT SUBCUT SCH (08:23)
[2017-12-26] MEDS: Vancomycin(*) 1,500 MG in NS 0.9% 250 ML* 250 ML IVPB SCH (08:23)
[2017-12-26] MEDS: Heparin VIAL(*) 5000 UNITS/ML VIAL (FIVE THOUSAND) SUBCUT SCH (08:27)
[2017-12-26] MEDS: Metoprolol Tartrate TAB* 25 MG PO SCH (08:34)
[2017-12-26] MEDS: Potassium Chlor TAB* 10 MEQ TAB.ER PO SCH (08:34)
[2017-12-26] MEDS: Dronedarone TAB* 400 MG PO SCH (08:34)
[2017-12-26] MEDS: Omeprazole CAP* 20 MG PO SCH (08:34)
[2017-12-26] MEDS: Ferrous Sulfate TAB* 325 MG PO SCH (08:35)
[2017-12-26] MEDS: Cyanocobalamin TAB* 500 MCG PO SCH (08:35)
[2017-12-26] MEDS ORDERED: Insulin GLARGINE(*) 1 UNITS UNIT SUBCUT SCH (09:00)
[2017-12-26] MEDS: oxyCODONE/Acetamin 5/325 MG* TAB PO PRN (10:06)
[2017-12-26 10:33] VITALS: BP 134/67
[2017-12-26] MEDS ORDERED: Vancomycin(*) 1,000 MG in NS 0.9% 250 ML* 250 ML IVPB SCH (16:30)
--- NOTE | 2017-12-26 23:16 | DS ---
CC: Dr. Childress * DISCHARGE SUMMARY: DATE OF ADMISSION: 12/24/17 DATE OF DISCHARGE: 12/26/17 PRIMARY CARE PROVIDER: Dr. Childress. PRIMARY DIAGNOSIS: Left lower extremity cellulitis. SECONDARY DIAGNOSES: Include: 1. Type 2 diabetes. 2. History of gastrointestinal bleed. 3. Atrial fibrillation, non-anticoagulated secondary to gastrointestinal bleed. 4. Chronic obstructive pulmonary disease. 5. Hypertension. 6. Morbid obesity. 7. Obstructive sleep apnea, on CPAP. 8. Hyponatremia. MEDICATIONS ON DISCHARGE: Include: 1. Bactrim double strength 1 twice a day for 10 days. 2. Keflex 500 mg 3 times a day for 10 days. 3. Cholecalciferol 2000 units daily. 4. Albuterol 2 puffs every 4 hours as needed. 5. Acetaminophen 1000 mg four times a day as needed for pain. 6. Multaq 400 mg twice a day. 7. Vitamin B12 500 mcg twice daily. 8. Insulin glargine 44 units subcutaneously in the morning, please note increased from 40 units to 44 units due to hyperglycemia in the hospital. 9. Ferrous sulfate 325 mg twice daily. 10. Metoprolol tartrate 25 mg twice daily. 11. Xopenex every 6 hours as needed. 12. Simvastatin 40 mg in the evening. 13. Potassium chloride 10 mEq in the morning. 14. Omeprazole 40 mg twice daily. 15. Spiriva 2 puffs twice daily. 16. Oxycodone 5 mg every 6 hours as needed, max 4 tabs per day, dispensed 12. PERTINENT IMAGING: Lower extremity Doppler, no appreciable clot, although limited exam. PERTINENT LABORATORY DATA: White blood cell count 9.8 at maximum. Sodium 124 on the day of discharge, hemoglobin A1c 8.8%. HISTORY OF PRESENT ILLNESS AND HOSPITAL COURSE: A 62-year-old gentleman presented to the hospital with left lower leg pain noted with cellulitis extending from the plantar aspect of his foot all the way to his left groin. He was treated with cefepime and vancomycin with improvement in erythema now, no longer involving the groin, extending only partly up about 6 to 8 inches above the knee over the anterior surface, much more spared over the medial surface. Pain had improved, although still has significant swelling. The patient does have breakdown in his pretibial area on the left lower extremity, likely the etiology of access for bacteria for the cellulitis. He will be transitioned to Bactrim as well as Keflex given his uncontrolled diabetes. He had no fevers or leukocytosis during the course of the hospital stay. He was noted to be hyponatremic, similar to September 2016, but worse compared to February 2017. He was given IV fluid hydration in the setting of cellulitis without change in his hyponatremia. He was recommended to follow this after discharge for improvement. There were no complications during the course of this hospital stay. FOLLOWUP INSTRUCTIONS: At followup, please: 1. Evaluate leg for continued improvement, off IV antibiotics. 2. Follow up BMP for stabilization and/or improvement in hyponatremia. 3. Continue to manage diabetes, please note Lantus dose increased as indicated above. 4. No other specific labs or vitals that need followup. REASONS TO RETURN TO THE HOSPITAL: Included but not limited to recurrent or worsening symptoms, fevers, chills, night sweats, worsening erythema, worsening pain, worsening swelling in his leg, bleeding from any source, inability to obtain or tolerate his medications discussed with the patient. He acknowledged understanding. TIME SPENT: Greater than 1 hour was spent on the discharge of the patient, greater than half was spent [id number] with the patient. [id number]/[facility] #: [id number] SALVATORE
[2017-12-28] MEDS ORDERED: Vancomycin Trough Check NOTE FOLLOW UP ONE (08:00)
== END 2017-12-26 12:45 | disposition home or self-care (01) | DRG 603 ==
LOC: ED 11:32 → MED 14:43
PROVIDERS: ADMIT Internal Medicine; ATTEND Internal Medicine
DX: L03.116 Cellulitis of left lower limb (principal); Z68.44 Body mass index [BMI] 60.0-69.9, adult; E87.1 Hypo-osmolality and hyponatremia; N17.9 Acute kidney failure, unspecified; E11.22 Type 2 diabetes mellitus with diabetic chronic kidney disease; I48.91 Unspecified atrial fibrillation; E66.01 Morbid (severe) obesity due to excess calories; E11.65 Type 2 diabetes mellitus with hyperglycemia; I12.9 Hypertensive chronic kidney disease with stage 1 through stage 4 chronic kidney disease, or unspecified chronic kidney disease; N18.9 Chronic kidney disease, unspecified; J44.9 Chronic obstructive pulmonary disease, unspecified; I10 Essential (primary) hypertension; B95.7 Other staphylococcus as the cause of diseases classified elsewhere; G47.33 Obstructive sleep apnea (adult) (pediatric); Z79.1 Long term (current) use of non-steroidal anti-inflammatories (NSAID); Z79.4 Long term (current) use of insulin; Z79.899 Other long term (current) drug therapy; Z88.8 Allergy status to other drugs, medicaments and biological substances; Z80.1 Family history of malignant neoplasm of trachea, bronchus and lung; Z80.0 Family history of malignant neoplasm of digestive organs; Z87.891 Personal history of nicotine dependence
CPT/HCPCS: 36415; 72131; 80048; 80053; 80202; 81003; 81015; 83036; 83605; 83735; 84484; 85025; 87040; 87077; 87086; 87150; 87205; 94660; 99284; A9270-GY; J0692; J1644; J2270; J3370; J3475

== ENCOUNTER 2018-01-06 18:42 | Inpatient (IN) | payer MEDICARE, MEDICAID ==
--- NOTE | 2018-01-06 19:58 | ED ---
Skin Complaint - HPI Summary HPI Summary: This patient is a 62 year old M presenting to [facility] accompanied with a chief complaint of edema from his left knee down to his foot. The patient has been experiencing this for multiple weeks and was previously admitted 2 weeks ago with the same complaint but has not since resolved. The patient experiences pain , itching, blistering, soreness and erythema in the affected area. The patient rates the pain 6/10 in severity, and describes it as an aching pain. He also complains of constipation, and denies fever and vomiting. The patient states it has not gotten worse since his previous visit, but seems worse when he sleeps. - History of Current Complaint Chief Complaint: EDExtremityLower Time Seen by Provider: 01/06/18 19:35 Stated Complaint: LT LEG PAIN Hx Obtained From: Patient Onset/Duration: Started Weeks Ago, Atraumatic Timing: Constant Onset Severity: Moderate Current Severity: Moderate Pain Intensity: 6 Pain Scale Used: 0-10 Numeric Skin Location: Leg Character: Swelling, Redness Aggravating Symptom(s): Other: - In the evening Alleviating Symptom(s): Nothing - Additional Pertinent History Primary Care Physician: [id number] - Allergy/Home Medications Allergies/Adverse Reactions: Allergies Allergy/AdvReac Type Severity Reaction Status Date / Time metformin Allergy Rash Verified 01/06/18 18:56 PMH/Surg Hx/FS Hx/Imm Hx Endocrine/Hematology History: Reports: Hx Anticoagulant Therapy - Xeralto, Hx Diabetes, Hx Thyroid Disease - hypothyroid, reports no longer on meds Cardiovascular History: Reports: Hx Atrial Fibrillation, Hx Congestive Heart Failure, Hx Hypercholesterolemia, Hx Hypertension, Other Cardiovascular Problems /Disorders - hyperlipidemia, a-fib Respiratory History: Reports: Hx Asthma, Hx Chronic Obstructive Pulmonary Disease (COPD), Hx Pneumonia, Hx Sleep Apnea - cpap, Other Respiratory Problems/ Disorders - copd GI History: Reports: Hx Gastroesophageal Reflux Disease, Hx Gastrointestinal Bleed - Admitted with GI bleed, Other GI Disorders - gi bleed 2015 - [place] [facility] jorge BUCKLEY History: Reports: Hx Kidney Stones - x3 -reports passed on their own Denies: Hx Dialysis, Hx Renal Disease, Other Problems/Disorders - DENIES Sensory History: Reports: Hx Contacts or Glasses - did not bring to hospital Denies: Hx Hearing Aid Opthamlomology History: Reports: Hx Contacts or Glasses - did not bring to hospital - Surgical History Surgery Procedure, Year, and Place: EAR DRUM SURGERY [address] [place] [address]. [place] [facility] [place]. tongue biopsy and #30 tooth extraction [place] Nov 2016 Hx Anesthesia Reactions: No Infectious Disease History: No Infectious Disease History: Denies: Traveled Outside the [place] in Last 30 Days - Family History Known Family History: Positive: Diabetes, Other - both parents passed from cancer Family History: Denies FHx anesthesia reaction - Social History Alcohol Use: Occasionally Alcohol Amount: 2-4 whiskey drinks week Hx Substance Use: No Substance Use Type: Reports: None Hx Tobacco Use: Yes Smoking Status (MU): Former Smoker Amount Used/How Often: 1 ppd for 40 yrs Review of Systems Negative: Fever Positive: Other - Constipation. Negative: Vomiting, Diarrhea, Nausea Positive: Rash - Edema, errythema, blistering on left leg from knee to foot. All Other Systems Reviewed And Are Negative: Yes Physical Exam - Summary Physical Exam Summary: Appearance: Well-appearing, morbidly obese, lying in bed comfortably Skin: Warm, dry, LLE marked erythema with some warmth from just above the knee down to the foot with some superficial blistering and skin peeling. No abscess, no drainage. Eyes: sclera anicteric, no conjunctival pallor ENT: mucous membranes moist, pharynx appears normal Neck: Supple, nontender Respiratory: Clear to auscultation, no signs of respiratory distress Cardiovascular: Normal S1, S2. No murmurs. Normal distal pulses in tibial and radial bilaterally. Abdomen: Soft, nontender, normal active bowel sounds present Musculoskeletal: Normal, Strength/ROM Intact Neurological: A&Ox3, awake and alert, mentation is normal, speech is fluent and appropriate Psychiatric: affect is normal, does not appear anxious or depressed Triage Information Reviewed: Yes Vital Signs On Initial Exam: Initial Vitals Temp Pulse Resp BP Pulse Ox 97.6 F 88 22 118/84 96 01/06/18 18:53 01/06/18 18:53 01/06/18 18:53 01/06/18 18:53 01/06/18 18:53 Vital Signs Reviewed: Yes Diagnostics - Vital Signs Vital Signs Temp Pulse Resp BP Pulse Ox 01/06/18 18:53 97.6 F 88 22 118/84 96 - Laboratory Result Diagrams: 01/06/18 19:56 01/06/18 20:00 Lab Statement: Any lab studies that have been ordered have been reviewed, and results considered in the medical decision making process. - Ultrasound No standard instances Ultrasound Interpretation Completed By: Radiologist Summary of Ultrasound Findings: US LLE: No acute findings. No left lower extremity no dep vein thrombosis. ED Provider has reviewed this report. Re-Evaluation - Re-Evaluation First Eval Re-Evaluation Time: 21:43 Change: Unchanged Comment: Results and plan for admission were discussed with the patient. Course/Dx - Course Course Of Treatment: This patient is a 62 year old M presenting to [facility] accompanied with a chief complaint of edema from his left knee down to his foot. Labs and imaging (LLE US) were unremarkable for DVT. We discussed patient care with Dr. Nam, Hospitalist, and he recommended admission to [facility]. Pt will be admitted and he is agreeable with this plan. - Diagnoses Provider Diagnoses: Cellulitis of left lower extremity, Hyponatremia - Physician Notifications Discussed Care Of Patient With: Dennis Nam Time Discussed With Above Provider: 21:43 Instructed by Provider To: Admit As Inpatient Discharge - Sign-Out/Discharge Documenting (check all that apply): Patient Departure - Admit - Discharge Plan Condition: Guarded Disposition: ADMITTED TO [facility] - Billing Disposition and Condition Condition: GUARDED Disposition: Admitted to [facility] - Attestation Statements Document Initiated by Jina: Yes Documenting Scribe: Bharat Love Provider For Whom Jina is Documenting (Include Credential): Bruno Pacheco MD Scribmariely Attestation: Bharat Ayers scribed for Bruno Pacheco MD on 01/06/18 at 2253. Scribe Documentation Reviewed: Yes Provider Attestation: The documentation as recorded by the Bharat duff accurately reflects the service I personally performed and the decisions made by me, Bruno Pacheco MD
[2018-01-06 20:08] LABS: Urine Appearance Clear; Urine Blood Negative (Negative); Urine Color Straw; Urine Ketones Negative (Negative); Urine Protein Negative (Negative); Urine Specific Gravity 1.009 (1.010-1.030); Urine Urobilinogen Negative (Negative)
[2018-01-06 20:18] LABS: ABS Basophils 0 10^3/ul (0-0.2); ABS Eosinophils 0.1 10^3/ul (0-0.6); ABS Lymphocytes 0.6 10^3/ul (1.0-4.8); ABS Monocytes 0.6 10^3/ul (0-0.8); ABS Neutrophils 6.2 10^3/ul (1.5-7.7); ABS Nucleated RBC 0 10^3/ul; Eosinophil % 1.5 % (0-6); Hematocrit 34 % (42-52); Hemoglobin 11.5 g/dl (14.0-18.0); Lymphocyte % 7.6 % (25-47); Mean Corpuscular HGB Conc 34 g/dl (31-36); Mean Corpuscular Hemoglobin 30 pg (27-31); Mean Corpuscular Volume 89 fL (80-94); Mean Platelet Volume 6.7 fL (7.4-10.4); Nucleated Red Blood Cells % 0; Platelet Count 465 10^3/ul (150-450); Red Blood Count 3.83 10^6/ul (4.00-5.40); Red Cell Distribution Width 15 % (10.5-15); White Blood Count 7.5 10^3/ul (3.5-10.8)
[2018-01-06 20:37] LABS: EGFR Non-African American 51.5 (>60)
[2018-01-06] MEDS ORDERED: NS 0.9% 1000 ML* 1,000 ML IV ONE (20:45)
[2018-01-06] MEDS ORDERED: Sodium Phosphate ADULT ENEMA* 118 ml bottle PR PRN (21:48)
[2018-01-06] MEDS ORDERED: Dextrose 50% Syringe 50 ML* 25 GM/50 ML SYRINGE IV PUSH PRN (22:10)
[2018-01-06] MEDS ORDERED: Levalbuterol 0.63MG/3ML NEB* UNIT OF USE INH PRN (22:11)
[2018-01-06] MEDS ORDERED: Bisacodyl SUPP* 10 MG SUPP PR PRN (22:28)
[2018-01-06] MEDS: Senna TAB PO SCH (23:50)
[2018-01-06] MEDS: oxyCODONE TAB* 5 MG TAB PO PRN (23:50)
--- NOTE | 2018-01-07 02:27 | HP ---
CC: Dr. Childress.* HOSPITAL MEDICINE HISTORY AND PHYSICAL: DATE OF ADMISSION: 01/06/18 PRIMARY CARE PHYSICIAN: Dr. Childress. ATTENDING PHYSICIAN: Dr. Dennis Nam * (dictation provided by Yanet Herndon NP ). CHIEF COMPLAINT: Pain in left leg. HISTORY OF PRESENT ILLNESS: Mr. Porter is a 62-year-old male who was just discharged from our hospital on 12/26/17 after a 2-day hospitalization in treatment of left lower extremity cellulitis. Per the report, the patient initially had cellulitis with erythema and swelling extending up to the level of the groin. He was treated with IV antibiotics and then transitioned over to Bactrim and Keflex with good improvement in the erythema and pain. At the time of discharge, the patient had erythema extending about 6 to 8 inches above the knee on the anterior surface, also with some skin breakdown around the pretibial area. Patient states since he is being discharged to home, he has noticed no increase in redness to the left lower extremity. He was initially on oxycodone 10 mg for pain. He was followed by Dr. Childress, who visited him at home for evaluation and has had renewals of his oxycodone though at lower strengths since discharge. Patient states that he has run out of oxycodone and that he has severe 8/10 pain in the left lower extremity. He states the pain is not worse than during his hospitalization. He has had no fever, no chills. He has had no nausea, vomiting, diarrhea, or abdominal pain. No chest pain, no shortness of breath. Mr. Porter has been found to have sodium level of 119 on arrival here today. During the last hospitalization, he was noted to have a hyponatremia with a sodium of 124 on the day of discharge. He denies beer drinking. He states that he does drink large amount of fluids during the day and estimates that he drinks about 10, 16-ounce bottles of water as well as a gallon of tea a day. PAST MEDICAL HISTORY: 1. Morbid obesity. 2. Atrial fibrillation, not on anticoagulation due to a bleeding duodenal ulcer history. 2. COPD. 3. Type 2 diabetes, insulin dependent. 4. Hypertension. 5. Upper GI bleed, secondary to duodenal ulcer. 6. History of broken bone in his right lower extremity. 7. Obstructive sleep apnea, on CPAP. MEDICATIONS: 1. Cholecalciferol 2000 units p.o. daily. 2. Albuterol inhaler 2 puffs inhaled q.4 hours p.r.n. 3. Tylenol 1000 mg p.o. q.6 hours p.r.n. 4. Oxycodone 5 mg p.o. q.6 hours p.r.n. 5. Bactrim one tab p.o. b.i.d. 6. Spiriva inhaler 2 inhalations inhaled b.i.d. 7. Simvastatin 40 mg p.o. q.p.m. 8. Potassium chloride 10 mEq p.o. q.a.m. 9. Omeprazole 40 mg p.o. b.i.d. 10. Metoprolol tartrate 25 mg p.o. b.i.d. 11. Levalbuterol 0.63 mg inhaled q.6 hours p.r.n. 12. Lantus insulin 44 units subcutaneously q.a.m. 13. Ferrous sulfate 325 mg p.o. b.i.d. 14. Dronedarone 400 mg p.o. b.i.d. 15. Cyanocobalamin 500 mcg p.o. b.i.d. ALLERGIES: To METFORMIN. FAMILY HISTORY: Report of father and mother who both had lung cancer and his father also had throat cancer. SOCIAL HISTORY: The patient has been disabled since 2008. He quit smoking in 2008. He is to smoke about a pack a day for 40 years. He only drinks alcohol occasionally about 1 whisky per week. REVIEW OF SYSTEMS: A 14-point review of systems was completed with Mr. Porter and all those not mentioned above were negative. PHYSICAL EXAMINATION GENERAL: Mr. Porter is lying in the bed. He is in no acute distress. VITAL SIGNS: Temperature 97.6, pulse rate 86, respiratory rate 22, O2 saturation 95% on room air, blood pressure 138/67. LUNGS: Clear to auscultation bilaterally with no accessory muscle use and good aeration. HEART: S1, S2. No murmur, rub, gallop, and regular. ABDOMEN: Soft, protuberant but nontender. Bowel sounds are positive. EXTREMITIES: No cyanosis. Positive for bilateral lower extremity edema about a +1. There is greater edema on the left than the right. There is erythema that extends from the foot with intense erythema around the calf and mild erythema extending up to about 4 inches above the knee. There is peeling skin noted, especially about the foot on the left. There is no drainage. NEUROLOGIC: He is alert. He is oriented x3. He moves all extremities equally. There is no facial asymmetry or focal weakness. Extraocular movements are intact. DATA: Sodium 119, potassium 4.9, chloride 87, serum bicarbonate 25, BUN 15, creatinine 1.40, glucose 134. Serum osmolality is 267. Lactic acid 1.1. Urine shows no evidence of infection. The sodium concentration is 79. Urine osmolality is pending. WBC 7.5, hemoglobin 11.5, hematocrit 34, platelet count 465. Venous Doppler study shows "no acute findings, no left lower extremity DVT." ASSESSMENT: Mr. Porter is a 62-year-old male with past medical history of morbid obesity, type 2 diabetes which is insulin dependent and recent admission to our hospital, was discharged on 12/26/17 after treatment for left lower extremity cellulitis, who presents today to the hospital with concern for continued pain in the left leg with no clear worsening of erythema or edema and in fact evidence of further healing as well as a new finding of worsening hyponatremia. Plans are for observation for the followin. Hyponatremia: The patient had hyponatremia at the previous admission, but the sodium level has fallen now down to 119. He appears essentially euvolemic though he does have lower extremity edema in the setting of morbid obesity. I question whether the hyponatremia is related to his significant free water intake on a daily basis and/or possibly the Bactrim. He may also have SIADH, though I don't see an underlying inciting cause. His serum osmolality is consistent with a hypotonic hyponatremia. I have ordered urine sodium, which is high and I am awaiting the urine osmolality. I am adding on a TSH and an a.m. cortisol Regardless, the plan at this point is to treat with a fluid restriction. 2. Cellulitis: The patient has evidence of good, continued healing based on the description from Dr. Ko's discharge summary. My suspicion is that this is just a very slow healing cellulitis given his edema. I do not plan to initiate antibiotics at this time. We will continue to monitor for worsening signs of infection. We will, however, order pain medications, which is the primary reason for his presentation to the ED. He has no evidence of DVT. 3. Type 2 diabetes. Plan for blood glucoses q.a.c. with lispro sliding scale. Patient has Lantus q.a.m. per routine. 4. History of Atrial fibrillation: Continue dronedarone. Patient is not anticoagulated due to history of GI bleed. 5. Hypertension. Continue metoprolol. 6. Hyperlipidemia. Continue simvastatin. 7. Gastroesophageal reflux disease. Continue omeprazole. 8. Code status: Full code. 9. Constipation: Patient reports having a last bowel movement yesterday. The patient states that is abnormal and that he feels constipation. We will order Fleet enema and senna and Colace as well as Dulcolax suppository p.r.n. TIME SPENT: Approximately 60 minutes were spent on the admission of this patient, more than half the time spent with the patient at the bedside reviewing the events leading up to this hospitalization, performing the physical examination, and reviewing the plan of care. YANET HERNDON NP [id number]/[facility] #: [id number] SALVATORE
[2018-01-07] MEDS: oxyCODONE TAB* 5 MG TAB PO PRN ×4 (03:53→21:01)
[2018-01-07] MEDS: Acetaminophen TAB* 325 MG PO PRN ×3 (06:32→21:00)
[2018-01-07] MEDS: Heparin VIAL(*) 5000 UNITS/ML VIAL (FIVE THOUSAND) SUBCUT SCH ×3 (06:33→21:01)
[2018-01-07 06:56] LABS: EGFR Non-African American 56.1 (>60)
[2018-01-07] MEDS: Insulin LISPRO* 1 UNITS UNIT SUBCUT SCH ×3 (07:47→18:01)
[2018-01-07] MEDS: Omeprazole CAP* 20 MG PO SCH ×2 (07:53→18:01)
[2018-01-07] MEDS ORDERED: Potassium Chlor TAB* 10 MEQ TAB.ER PO SCH (09:00)
[2018-01-07] MEDS: Dronedarone TAB* 400 MG PO SCH ×2 (09:17→20:59)
[2018-01-07] MEDS: Cyanocobalamin TAB* 500 MCG PO SCH ×2 (09:17→21:00)
[2018-01-07] MEDS: Ferrous Sulfate TAB* 325 MG PO SCH ×2 (09:17→20:59)
[2018-01-07] MEDS: Docusate CAP* 100 MG PO PRN ×2 (09:18→20:59)
[2018-01-07] MEDS: Insulin GLARGINE(*) 1 UNITS UNIT SUBCUT SCH (09:18)
[2018-01-07] MEDS: Metoprolol Tartrate TAB* 25 MG PO SCH ×2 (09:18→20:59)
--- NOTE | 2018-01-07 11:48 | PN ---
Subjective Date of Service: 01/07/18 Interval History: Patient had an episode of severe lower extremity pain overnight which responded to pain medication. Patient states the pain in his leg has again returned to a mild level. Patient denies dizziness, confusion, malaise, involuntary movements. Patient denies F/C, N/V, abdominal pain, CP, SOB, diarrhea, dysuria, cough, recent infection, excessive thirst, of other pain. Family History: Unchanged from Admission Social History: Unchanged from Admission Past Medical History: Unchanged from Admission Objective Active Medications: Acetaminophen (Tylenol Tab*) 650 mg PO Q4H PRN PRN Reason: FEVER/PAIN Last Admin: 01/07/18 06:32 Dose: 650 mg Albuterol (Ventolin Hfa Inhaler*) 2 puff INH Q4H PRN PRN Reason: SHORTNESS OF BREATH Atorvastatin Calcium (Lipitor*) 20 mg PO QPM [facility] Bisacodyl (Dulcolax Supp*) 10 mg [place] DAILY PRN PRN Reason: CONSTIPATION Cephalexin HCl (Keflex Cap*) 500 mg PO TID [facility] Cyanocobalamin (Vitamin B12 Tab*) 500 mcg PO BID [facility] Last Admin: 01/07/18 09:17 Dose: 500 mcg Dextrose (D50w Syringe 50 Ml*) 12.5 gm IV PUSH .FOR FS < 60 - SS PRN PRN Reason: FS < 60 Docusate Sodium (Colace Cap*) 100 mg PO BID PRN PRN Reason: CONSTIPATION Last Admin: 01/07/18 09:18 Dose: 100 mg Dronedarone (Multaq Tab*) 400 mg PO BID [facility] Last Admin: 01/07/18 09:17 Dose: 400 mg Ferrous Sulfate (Ferrous Sulfate Tab*) 325 mg PO BID [facility] Last Admin: 01/07/18 09:17 Dose: 325 mg Heparin Sodium (Porcine) (Heparin Vial(*)) 5,000 units SUBCUT Q8HR [facility] Last Admin: 01/07/18 06:33 Dose: 5,000 units Insulin Glargine (Lantus(*)) 44 units SUBCUT QAM [facility] Last Admin: 01/07/18 09:18 Dose: 44 units Insulin Human Lispro (Humalog*) 0 units SUBCUT AC [facility]; Protocol Last Admin: 01/07/18 07:47 Dose: Not Given Levalbuterol HCl (Xopenex 0.63mg/3ml Neb*) 0.63 mg INH Q6H PRN PRN Reason: SHORTNESS OF BREATH Metoprolol Tartrate (Lopressor Tab*) 25 mg PO BID [facility] Last Admin: 01/07/18 09:18 Dose: 25 mg Omeprazole (Prilosec Cap*) 40 mg PO BID AC [facility] Stop: 01/20/18 16:31 Last Admin: 01/07/18 07:53 Dose: 40 mg Omeprazole (Prilosec Cap*) 40 mg PO DAILY@0730 [facility] Oxycodone HCl (Roxycodone Tab*) 10 mg PO Q4H PRN PRN Reason: PAIN Last Admin: 01/07/18 09:18 Dose: 10 mg Potassium Chloride (Klor Con Er Tab*) 10 meq PO QAM [facility] Last Admin: 01/07/18 09:17 Dose: 10 meq Senna (Senokot Tab*) 2 tab PO BEDTIME [facility] Last Admin: 01/06/18 23:50 Dose: 2 tab Sodium Biphosphate/Sodium Phosphate (Fleet Enema*) 1 bottle [place] DAILY PRN PRN Reason: CONSTIPATION Vital Signs - 8 hr 01/07/18 01/07/18 01/07/18 03:53 07:37 09:18 Temperature 97.4 F Pulse Rate 81 Respiratory 16 22 18 Rate Blood Pressure 139/65 (mmHg) O2 Sat by Pulse 98 Oximetry 01/07/18 01/07/18 11:09 11:33 Temperature 97.0 F Pulse Rate 71 Respiratory 20 14 Rate Blood Pressure 128/74 (mmHg) O2 Sat by Pulse 100 Oximetry Oxygen Devices in Use Now: None Appearance: Patient is a 62yo male who appears older than stated age and is sitting in the bed in [facility]. Eyes: No Scleral Icterus, PERRLA Ears/Nose/Mouth/Throat: NL Teeth, Lips, Gums, Clear Oropharnyx, Mucous Membranes Moist Neck: NL Appearance and Movements; NL JVP, Trachea Midline Respiratory: Symmetrical Chest Expansion and Respiratory Effort, Clear to Auscultation Cardiovascular: NL Sounds; No Murmurs; No JVD, RRR, - - 2+ edema in LLE, 1+ in RLE. Abdominal: NL Sounds; No Tenderness; No Distention, No Hepatosplenomegaly Lymphatic: No Cervical Adenopathy Extremities: No Clubbing, Cyanosis Skin: No Nodules or Sclerosis, - - Brawny edema of B/L LE. Erythema into the middle thigh on the left side. Warmth and several scabbed open areas. Neurological: Alert and Oriented x 3, NL Sensation, NL Muscle Strength and Tone , - - CN II-XII intact. Result Diagrams: 01/06/18 19:56 01/07/18 06:18 Assess/Plan/Problems-Billing Assessment: Patient is a 62yo male with a PMH for morbid obesity, diabetes, MAKAYLA, who was recently admitted for LLE cellulitis and treated with IV antibiotics with gradual improvement outpatient but with recent worsening of pain and worsening of hyponatremia down to 119 without symptoms. - Patient Problems (1) Hyponatremia Current Visit: Yes Status: Acute Code(s): E87.1 - HYPO-OSMOLALITY AND HYPONATREMIA SNOMED Code(s): 22980581 Comment: - Low of 119 - Hypotonic, Urine studies consistent with SIADH - Improving slowly with fluid restriction. May need diuretics - BMP Q6H, goal of improvement of 6 per 24hr period. (2) Atrial fibrillation Current Visit: No Status: Acute Code(s): I48.91 - UNSPECIFIED ATRIAL FIBRILLATION SNOMED Code(s): 40795035 Comment: - Not on Anticoagulation due to previous GIB - Continue with multaq and metoprolol (3) Cellulitis Current Visit: No Status: Acute Code(s): L03.90 - CELLULITIS, UNSPECIFIED SNOMED Code(s): 013479932 Comment: - Minimal improvement with out patient therapy - Worsening pain, resume Keflex due to lack of purulence. - Encouraged to keep leg elevated. (4) COPD (chronic obstructive pulmonary disease) Current Visit: No Status: Chronic Code(s): J44.9 - CHRONIC OBSTRUCTIVE PULMONARY DISEASE, UNSPECIFIED SNOMED Code(s): 08639910 Comment: - No signs of exacerbation at this time. - Continue spiriva and prn nebs. (5) DM2 (diabetes mellitus, type 2) Current Visit: No Status: Chronic Comment: - Hba1c 8.8% early this month - Long acting insulin and SSI coverage with transition to scheduled insulin AC. (6) HTN (hypertension) Current Visit: No Status: Chronic Code(s): I10 - ESSENTIAL (PRIMARY) HYPERTENSION SNOMED Code(s): 34774487 Comment: - Normotensive, continue metoprolol (7) MAKAYLA (obstructive sleep apnea) Current Visit: No Status: Chronic Code(s): G47.33 - OBSTRUCTIVE SLEEP APNEA (ADULT) (PEDIATRIC) SNOMED Code(s): 24434528 Comment: Continue CPAP (8) Full code status Current Visit: No Status: Acute Code(s): Z78.9 - OTHER SPECIFIED HEALTH STATUS SNOMED Code(s): 443212039 (9) DVT prophylaxis Current Visit: No Status: Acute Code(s): NYA0701 - SNOMED Code(s): 388713579 Comment: HSQ Status and Disposition: Inpatient for safe treatment of severe hyponatremia.
[2018-01-07 12:23] LABS: EGFR Non-African American 59.8 (>60)
[2018-01-07] MEDS ORDERED: Spiriva Inhaler DEVICE* 1 EACH DEVICE INH ONE (13:00)
[2018-01-07] MEDS: Cephalexin CAP* 500 MG PO SCH ×2 (14:55→20:59)
[2018-01-07] MEDS: Tiotropium CAP.INH* CAP.INH/18 MCG (USE ORDER SET !) INH SCH (14:55)
[2018-01-07] MEDS: Atorvastatin* 20 MG TAB PO SCH (18:01)
[2018-01-07 19:04] LABS: EGFR Non-African American 52.4 (>60)
[2018-01-07] MEDS: Senna TAB PO SCH (21:00)
[2018-01-07] MEDS: Albuterol HFA INHALER* 8 gm MDI INH PRN (21:40)
[2018-01-08] MEDS: oxyCODONE TAB* 5 MG TAB PO PRN ×5 (01:42→21:19)
[2018-01-08] MEDS: Acetaminophen TAB* 325 MG PO PRN ×5 (01:43→21:43)
[2018-01-08 06:00] LABS: ABS Basophils 0 10^3/ul (0-0.2); ABS Eosinophils 0.1 10^3/ul (0-0.6); ABS Lymphocytes 0.6 10^3/ul (1.0-4.8); ABS Monocytes 0.5 10^3/ul (0-0.8); ABS Neutrophils 4.3 10^3/ul (1.5-7.7); ABS Nucleated RBC 0 10^3/ul; Eosinophil % 1.9 % (0-6); Hematocrit 34 % (42-52); Hemoglobin 11.2 g/dl (14.0-18.0); Lymphocyte % 10.7 % (25-47); Mean Corpuscular HGB Conc 34 g/dl (31-36); Mean Corpuscular Hemoglobin 30 pg (27-31); Mean Corpuscular Volume 90 fL (80-94); Mean Platelet Volume 6.5 fL (7.4-10.4); Nucleated Red Blood Cells % 0.1; Platelet Count 422 10^3/ul (150-450); Red Blood Count 3.74 10^6/ul (4.00-5.40); Red Cell Distribution Width 15 % (10.5-15); White Blood Count 5.6 10^3/ul (3.5-10.8)
[2018-01-08] MEDS: Heparin VIAL(*) 5000 UNITS/ML VIAL (FIVE THOUSAND) SUBCUT SCH ×3 (06:20→21:18)
[2018-01-08] MEDS ORDERED: Furosemide IV* 10 MG/ML 2 ML VIAL (20 MG) IV SLOW PU ONE (07:05)
[2018-01-08] MEDS: Docusate CAP* 100 MG PO PRN ×2 (07:49→21:19)
[2018-01-08] MEDS: Omeprazole CAP* 20 MG PO SCH ×2 (07:49→16:11)
[2018-01-08] MEDS: Dronedarone TAB* 400 MG PO SCH ×2 (09:03→21:19)
[2018-01-08] MEDS: Tiotropium CAP.INH* CAP.INH/18 MCG (USE ORDER SET !) INH SCH (09:03)
[2018-01-08] MEDS: Cephalexin CAP* 500 MG PO SCH ×3 (09:03→21:19)
[2018-01-08] MEDS: Cyanocobalamin TAB* 500 MCG PO SCH ×2 (09:04→21:19)
[2018-01-08] MEDS: Ferrous Sulfate TAB* 325 MG PO SCH ×2 (09:04→21:19)
[2018-01-08] MEDS: Insulin GLARGINE(*) 1 UNITS UNIT SUBCUT SCH (09:04)
[2018-01-08] MEDS: Metoprolol Tartrate TAB* 25 MG PO SCH ×2 (09:04→21:19)
[2018-01-08] MEDS: Insulin LISPRO* 1 UNITS UNIT SUBCUT SCH ×3 (09:04→17:19)
--- NOTE | 2018-01-08 10:48 | PN ---
Subjective Date of Service: 01/08/18 Interval History: Pain in patient's leg is improving. Patient thinks that SCDs mobilizing fluid is what helped significantly. Patient denies N/V, F/C, CP, SOB, Dizziness, dysuria, abdominal pain, diarrhea, or other pain. Pain 3/10 in LLE. Family History: Unchanged from Admission Social History: Unchanged from Admission Past Medical History: Unchanged from Admission Objective Active Medications: Acetaminophen (Tylenol Tab*) 650 mg PO Q4H PRN PRN Reason: FEVER/PAIN Last Admin: 01/08/18 06:18 Dose: 650 mg Albuterol (Ventolin Hfa Inhaler*) 2 puff INH Q4H PRN PRN Reason: SHORTNESS OF BREATH Last Admin: 01/07/18 21:40 Dose: 2 puff Atorvastatin Calcium (Lipitor*) 20 mg PO QPM [facility] Last Admin: 01/07/18 18:01 Dose: 20 mg Bisacodyl (Dulcolax Supp*) 10 mg [place] DAILY PRN PRN Reason: CONSTIPATION Cephalexin HCl (Keflex Cap*) 500 mg PO TID [facility] Last Admin: 01/08/18 09:03 Dose: 500 mg Cyanocobalamin (Vitamin B12 Tab*) 500 mcg PO BID [facility] Last Admin: 01/08/18 09:04 Dose: 500 mcg Dextrose (D50w Syringe 50 Ml*) 12.5 gm IV PUSH .FOR FS < 60 - SS PRN PRN Reason: FS < 60 Docusate Sodium (Colace Cap*) 100 mg PO BID PRN PRN Reason: CONSTIPATION Last Admin: 01/08/18 07:49 Dose: 100 mg Dronedarone (Multaq Tab*) 400 mg PO BID [facility] Last Admin: 01/08/18 09:03 Dose: 400 mg Ferrous Sulfate (Ferrous Sulfate Tab*) 325 mg PO BID [facility] Last Admin: 01/08/18 09:04 Dose: 325 mg Heparin Sodium (Porcine) (Heparin Vial(*)) 5,000 units SUBCUT Q8HR [facility] Last Admin: 01/08/18 06:20 Dose: 5,000 units Insulin Glargine (Lantus(*)) 44 units SUBCUT QAM [facility] Last Admin: 01/08/18 09:04 Dose: 44 units Insulin Human Lispro (Humalog*) 0 units SUBCUT AC [facility]; Protocol Last Admin: 01/08/18 09:04 Dose: 2 units Levalbuterol HCl (Xopenex 0.63mg/3ml Neb*) 0.63 mg INH Q6H PRN PRN Reason: SHORTNESS OF BREATH Metoprolol Tartrate (Lopressor Tab*) 25 mg PO BID [facility] Last Admin: 01/08/18 09:04 Dose: 25 mg Omeprazole (Prilosec Cap*) 40 mg PO BID [facility] Stop: 01/20/18 16:31 Last Admin: 01/08/18 07:49 Dose: 40 mg Omeprazole (Prilosec Cap*) 40 mg PO DAILY@0730 [facility] Oxycodone HCl (Roxycodone Tab*) 10 mg PO Q4H PRN PRN Reason: PAIN Last Admin: 01/08/18 06:18 Dose: 10 mg Senna (Senokot Tab*) 2 tab PO BEDTIME [facility] Last Admin: 01/07/18 21:00 Dose: 2 tab Sodium Biphosphate/Sodium Phosphate (Fleet Enema*) 1 bottle [place] DAILY PRN PRN Reason: CONSTIPATION Tiotropium [place] (Spiriva Cap.Inh*) 1 cap INH DAILY [facility] Last Admin: 01/08/18 09:03 Dose: 1 cap Vital Signs - 8 hr 01/08/18 01/08/18 01/08/18 02:43 03:23 06:18 Temperature 97.2 F Pulse Rate 79 Respiratory 16 16 16 Rate Blood Pressure 124/58 (mmHg) O2 Sat by Pulse 97 Oximetry 01/08/18 01/08/18 07:18 09:36 Temperature Pulse Rate 77 Respiratory 18 18 Rate Blood Pressure 136/71 (mmHg) O2 Sat by Pulse 98 Oximetry Oxygen Devices in Use Now: None Appearance: Patient is a 62yo male who appears stated age and is sitting in the bed in [facility]. Eyes: No Scleral Icterus, PERRLA Ears/Nose/Mouth/Throat: NL Teeth, Lips, Gums, Clear Oropharnyx, Mucous Membranes Moist Neck: NL Appearance and Movements; NL JVP, Trachea Midline Respiratory: Symmetrical Chest Expansion and Respiratory Effort, Clear to Auscultation Cardiovascular: NL Sounds; No Murmurs; No JVD, RRR, - - 1+ edema in RLE 2+ in LLE, slightly improved in calf but persistent in foot. Abdominal: NL Sounds; No Tenderness; No Distention, No Hepatosplenomegaly Lymphatic: No Cervical Adenopathy Extremities: No Clubbing, Cyanosis Skin: No Nodules or Sclerosis, - - Erythema, peeling skin and brawny edema up to the knee of LLE. Improved from previous exam. Neurological: Alert and Oriented x 3, NL Sensation, NL Muscle Strength and Tone , - - CN II-XII intact. Result Diagrams: 01/08/18 05:29 01/08/18 05:29 Assess/Plan/Problems-Billing Assessment: Patient is a 62yo male with a PMH for morbid obesity, diabetes, MAKAYLA, who was recently admitted for LLE cellulitis and treated with IV antibiotics with gradual improvement outpatient but with recent worsening of pain and worsening of hyponatremia down to 119 without symptoms. - Patient Problems (1) Hyponatremia Current Visit: Yes Status: Acute Code(s): E87.1 - HYPO-OSMOLALITY AND HYPONATREMIA SNOMED Code(s): 97733088 Comment: - Low of 119, now 124 - Hypotonic, Urine studies consistent with SIADH - Improving slowly with fluid restriction. - Lasix 20mg IV for the triplicate purpose of enhancing free water excretion, decreasing potassium, and decreasing edema. - BMP Q8H, goal of improvement of 6 per 24hr period. (2) Atrial fibrillation Current Visit: No Status: Acute Code(s): I48.91 - UNSPECIFIED ATRIAL FIBRILLATION SNOMED Code(s): 01397155 Comment: - Not on Anticoagulation due to previous GIB - Continue with multaq and metoprolol - Regular rhythm on exam. (3) Cellulitis Current Visit: No Status: Acute Code(s): L03.90 - CELLULITIS, UNSPECIFIED SNOMED Code(s): 796167104 Comment: - Minimal improvement with out patient therapy, continued improvement. - Worsening pain, resume Keflex due to lack of purulence. - Encouraged to keep leg elevated. (4) COPD (chronic obstructive pulmonary disease) Current Visit: No Status: Chronic Code(s): J44.9 - CHRONIC OBSTRUCTIVE PULMONARY DISEASE, UNSPECIFIED SNOMED Code(s): 68084202 Comment: - No signs of exacerbation at this time. - Continue spiriva and prn nebs. (5) DM2 (diabetes mellitus, type 2) Current Visit: No Status: Chronic Comment: - Hba1c 8.8% early this month - Long acting insulin and SSI coverage with transition to scheduled insulin AC. (6) HTN (hypertension) Current Visit: No Status: Chronic Code(s): I10 - ESSENTIAL (PRIMARY) HYPERTENSION SNOMED Code(s): 06855255 Comment: - Normotensive, continue metoprolol (7) MAKAYLA (obstructive sleep apnea) Current Visit: No Status: Chronic Code(s): G47.33 - OBSTRUCTIVE SLEEP APNEA (ADULT) (PEDIATRIC) SNOMED Code(s): 79003308 Comment: - Continue CPAP (8) Full code status Current Visit: No Status: Acute Code(s): Z78.9 - OTHER SPECIFIED HEALTH STATUS SNOMED Code(s): 293756815 (9) DVT prophylaxis Current Visit: No Status: Acute Code(s): OCJ4280 - SNOMED Code(s): 000945193 Comment: - HSQ Status and Disposition: Inpatient for safe treatment of severe hyponatremia.
[2018-01-08 15:14] LABS: EGFR Non-African American 53.3 (>60)
[2018-01-08] MEDS: Albuterol HFA INHALER* 8 gm MDI INH PRN (16:11)
[2018-01-08] MEDS: Atorvastatin* 20 MG TAB PO SCH (17:17)
[2018-01-08] MEDS: Senna TAB PO SCH (21:20)
[2018-01-08 23:59] LABS: EGFR Non-African American 56.1 (>60)
[2018-01-09] MEDS: Acetaminophen TAB* 325 MG PO PRN ×5 (01:30→21:25)
[2018-01-09] MEDS: oxyCODONE TAB* 5 MG TAB PO PRN ×5 (01:31→21:25)
[2018-01-09] MEDS: Heparin VIAL(*) 5000 UNITS/ML VIAL (FIVE THOUSAND) SUBCUT SCH ×3 (06:04→21:26)
[2018-01-09] MEDS: Insulin GLARGINE(*) 1 UNITS UNIT SUBCUT SCH (09:32)
[2018-01-09] MEDS: Insulin LISPRO* 1 UNITS UNIT SUBCUT SCH ×3 (09:32→17:40)
[2018-01-09] MEDS: Dronedarone TAB* 400 MG PO SCH ×2 (09:33→21:25)
[2018-01-09] MEDS: Metoprolol Tartrate TAB* 25 MG PO SCH ×2 (09:33→21:24)
[2018-01-09] MEDS: Sodium Chloride TAB* 1 GM PO SCH (09:33)
[2018-01-09] MEDS: Cyanocobalamin TAB* 500 MCG PO SCH ×2 (09:33→21:26)
[2018-01-09] MEDS: Omeprazole CAP* 20 MG PO SCH ×2 (09:33→16:10)
[2018-01-09] MEDS: Cephalexin CAP* 500 MG PO SCH ×3 (09:33→21:25)
[2018-01-09] MEDS: Ferrous Sulfate TAB* 325 MG PO SCH ×2 (09:34→21:24)
[2018-01-09] MEDS: Tiotropium CAP.INH* CAP.INH/18 MCG (USE ORDER SET !) INH SCH (13:49)
[2018-01-09] MEDS: Atorvastatin* 20 MG TAB PO SCH (16:11)
[2018-01-09] MEDS: Albuterol HFA INHALER* 8 gm MDI INH PRN (17:42)
--- NOTE | 2018-01-09 17:48 | PN ---
Subjective Date of Service: 01/09/18 Interval History: Patient reports that he continue to have pain in his left lower leg, pain has improved since admission. Denies chest pain or shortness of breath. denies abd pain. n/v/d. Hyponatremia continues to improve Family History: Unchanged from Admission Social History: Unchanged from Admission Past Medical History: Unchanged from Admission Objective Active Medications: Acetaminophen (Tylenol Tab*) 650 mg PO Q4H PRN PRN Reason: FEVER/PAIN Last Admin: 01/09/18 16:10 Dose: 650 mg Albuterol (Ventolin Hfa Inhaler*) 2 puff INH Q4H PRN PRN Reason: SHORTNESS OF BREATH Last Admin: 01/08/18 16:11 Dose: 2 puff Atorvastatin Calcium (Lipitor*) 20 mg PO QPM [facility] Last Admin: 01/09/18 16:11 Dose: 20 mg Bisacodyl (Dulcolax Supp*) 10 mg [place] DAILY PRN PRN Reason: CONSTIPATION Cephalexin HCl (Keflex Cap*) 500 mg PO TID [facility] Last Admin: 01/09/18 13:50 Dose: 500 mg Cyanocobalamin (Vitamin B12 Tab*) 500 mcg PO BID [facility] Last Admin: 01/09/18 09:33 Dose: 500 mcg Dextrose (D50w Syringe 50 Ml*) 12.5 gm IV PUSH .FOR FS < 60 - SS PRN PRN Reason: FS < 60 Docusate Sodium (Colace Cap*) 100 mg PO BID PRN PRN Reason: CONSTIPATION Last Admin: 01/08/18 21:19 Dose: 100 mg Dronedarone (Multaq Tab*) 400 mg PO BID [facility] Last Admin: 01/09/18 09:33 Dose: 400 mg Ferrous Sulfate (Ferrous Sulfate Tab*) 325 mg PO BID [facility] Last Admin: 01/09/18 09:34 Dose: 325 mg Heparin Sodium (Porcine) (Heparin Vial(*)) 5,000 units SUBCUT Q8HR [facility] Last Admin: 01/09/18 13:50 Dose: 5,000 units Insulin Glargine (Lantus(*)) 44 units SUBCUT QAM [facility] Last Admin: 01/09/18 09:32 Dose: 44 units Insulin Human Lispro (Humalog*) 0 units SUBCUT AC [facility]; Protocol Last Admin: 01/09/18 17:40 Dose: 3 units Levalbuterol HCl (Xopenex 0.63mg/3ml Neb*) 0.63 mg INH Q6H PRN PRN Reason: SHORTNESS OF BREATH Metoprolol Tartrate (Lopressor Tab*) 25 mg PO BID [facility] Last Admin: 01/09/18 09:33 Dose: 25 mg Omeprazole (Prilosec Cap*) 40 mg PO BID [facility] Stop: 01/20/18 16:31 Last Admin: 01/09/18 16:10 Dose: 40 mg Omeprazole (Prilosec Cap*) 40 mg PO DAILY@0730 [facility] Oxycodone HCl (Roxycodone Tab*) 10 mg PO Q4H PRN PRN Reason: PAIN Last Admin: 01/09/18 16:11 Dose: 10 mg Senna (Senokot Tab*) 2 tab PO BEDTIME [facility] Last Admin: 01/08/18 21:20 Dose: 2 tab Sodium Biphosphate/Sodium Phosphate (Fleet Enema*) 1 bottle [place] DAILY PRN PRN Reason: CONSTIPATION Sodium Chloride (Sodium Chloride Tab*) 1 gm PO DAILY [facility] Last Admin: 01/09/18 09:33 Dose: 1 gm Tiotropium [place] (Spiriva Cap.Inh*) 1 cap INH DAILY [facility] Last Admin: 01/09/18 13:49 Dose: Not Given Vital Signs - 8 hr 01/09/18 01/09/18 01/09/18 10:32 11:14 12:05 Temperature 97.6 F Pulse Rate 95 Respiratory 16 18 16 Rate Blood Pressure 152/86 (mmHg) O2 Sat by Pulse 100 Oximetry 01/09/18 01/09/18 15:12 16:11 Temperature 97.8 F Pulse Rate 81 Respiratory 16 17 Rate Blood Pressure 141/83 (mmHg) O2 Sat by Pulse 98 Oximetry Oxygen Devices in Use Now: None Appearance: appears comfortable sitting in the chair no acute distress Eyes: No Scleral Icterus Ears/Nose/Mouth/Throat: Clear Oropharnyx, Mucous Membranes Moist Neck: NL Appearance and Movements; NL JVP, Trachea Midline Respiratory: Symmetrical Chest Expansion and Respiratory Effort, Clear to Auscultation Cardiovascular: NL Sounds; No Murmurs; No JVD Abdominal: NL Sounds; No Tenderness; No Distention Extremities: No Clubbing, Cyanosis, - - left lower leg with redness and swelling , warm to touch Skin: - - left lower leg with redness and swelling, warm to touch Neurological: Alert and Oriented x 3 Result Diagrams: 01/08/18 05:29 01/09/18 05:44 Assess/Plan/Problems-Billing Assessment: Patient is a 62yo male with a PMH for morbid obesity, diabetes, MAKAYLA, who was recently admitted for LLE cellulitis and treated with IV antibiotics with gradual improvement outpatient but with recent worsening of pain and worsening of hyponatremia down to 119 without symptoms. - Patient Problems (1) Hyponatremia Current Visit: Yes Status: Acute Code(s): E87.1 - HYPO-OSMOLALITY AND HYPONATREMIA SNOMED Code(s): 60321261 Comment: - Low of 119, now 125 - Hypotonic, Urine studies consistent with SIADH - Improving slowly with fluid restriction- continue fluid restriction - Continues to improve after lasix yesterday - will recheck BMP in the AM (2) Cellulitis Current Visit: No Status: Acute Code(s): L03.90 - CELLULITIS, UNSPECIFIED SNOMED Code(s): 610832227 Comment: - Minimal improvement with out patient therapy, continued improvement. - Worsening pain, resume Keflex due to lack of purulence. - Encouraged to keep leg elevated. (3) Atrial fibrillation Current Visit: No Status: Acute Code(s): I48.91 - UNSPECIFIED ATRIAL FIBRILLATION SNOMED Code(s): 75543224 Comment: - Not on Anticoagulation due to previous GIB - Continue with multaq and metoprolol - Regular rhythm on exam. (4) COPD (chronic obstructive pulmonary disease) Current Visit: No Status: Chronic Code(s): J44.9 - CHRONIC OBSTRUCTIVE PULMONARY DISEASE, UNSPECIFIED SNOMED Code(s): 64269885 Comment: - No signs of exacerbation at this time. - Continue spiriva and prn nebs. (5) DM2 (diabetes mellitus, type 2) Current Visit: No Status: Chronic Comment: -blood glucose today 152-189 - Hba1c 8.8% early this month - Long acting insulin and SSI coverage with transition to scheduled insulin AC. (6) HTN (hypertension) Current Visit: No Status: Chronic Code(s): I10 - ESSENTIAL (PRIMARY) HYPERTENSION SNOMED Code(s): 08390839 Comment: - Normotensive, continue metoprolol (7) Hyperlipidemia Current Visit: No Status: Chronic Code(s): E78.5 - HYPERLIPIDEMIA, UNSPECIFIED SNOMED Code(s): 29827203 Comment: Continue lipitor as a substitute for zocor. (8) DVT prophylaxis Current Visit: No Status: Acute Code(s): FHY2838 - SNOMED Code(s): 483126886 Comment: - HSQ (9) Full code status Current Visit: No Status: Acute Code(s): Z78.9 - OTHER SPECIFIED HEALTH STATUS SNOMED Code(s): 741521337 Status and Disposition: Inpatient for safe treatment of severe hyponatremia.
[2018-01-09] MEDS: Senna TAB PO SCH (21:25)
[2018-01-10] MEDS: oxyCODONE TAB* 5 MG TAB PO PRN ×5 (01:47→20:28)
[2018-01-10] MEDS: Acetaminophen TAB* 325 MG PO PRN ×5 (01:47→20:27)
[2018-01-10] MEDS: Heparin VIAL(*) 5000 UNITS/ML VIAL (FIVE THOUSAND) SUBCUT SCH ×3 (05:52→22:05)
[2018-01-10 08:26] LABS: EGFR Non-African American 67.3 (>60)
[2018-01-10] MEDS: Omeprazole CAP* 20 MG PO SCH ×2 (10:08→17:44)
[2018-01-10] MEDS: Insulin GLARGINE(*) 1 UNITS UNIT SUBCUT SCH (10:08)
[2018-01-10] MEDS: Sodium Chloride TAB* 1 GM PO SCH (10:09)
[2018-01-10] MEDS: Insulin LISPRO* 1 UNITS UNIT SUBCUT SCH ×3 (10:09→17:44)
[2018-01-10] MEDS: Ferrous Sulfate TAB* 325 MG PO SCH ×2 (10:09→20:25)
[2018-01-10] MEDS: Dronedarone TAB* 400 MG PO SCH ×2 (10:10→20:26)
[2018-01-10] MEDS: Cephalexin CAP* 500 MG PO SCH ×3 (10:10→20:26)
[2018-01-10] MEDS: Tiotropium CAP.INH* CAP.INH/18 MCG (USE ORDER SET !) INH SCH (10:11)
[2018-01-10] MEDS: Metoprolol Tartrate TAB* 25 MG PO SCH ×2 (10:11→20:26)
[2018-01-10] MEDS: Cyanocobalamin TAB* 500 MCG PO SCH ×2 (10:11→20:25)
[2018-01-10] MEDS: Albuterol HFA INHALER* 8 gm MDI INH PRN ×2 (11:43→20:29)
--- NOTE | 2018-01-10 16:51 | PN ---
Subjective Date of Service: 01/10/18 Interval History: Left leg redness continues to improve, patient reports he continues to get pain in the leg at night, denies fever or chills , denies chest pain or shortness of breath. denies abd pain n/v/d. Family History: Unchanged from Admission Social History: Unchanged from Admission Past Medical History: Unchanged from Admission Objective Active Medications: Acetaminophen (Tylenol Tab*) 650 mg PO Q4H PRN PRN Reason: FEVER/PAIN Last Admin: 01/10/18 15:50 Dose: 650 mg Albuterol (Ventolin Hfa Inhaler*) 2 puff INH Q4H PRN PRN Reason: SHORTNESS OF BREATH Last Admin: 01/10/18 11:43 Dose: 2 puff Atorvastatin Calcium (Lipitor*) 20 mg PO QPM [facility] Last Admin: 01/09/18 16:11 Dose: 20 mg Bisacodyl (Dulcolax Supp*) 10 mg NC DAILY PRN PRN Reason: CONSTIPATION Cephalexin HCl (Keflex Cap*) 500 mg PO TID [facility] Last Admin: 01/10/18 14:07 Dose: 500 mg Cyanocobalamin (Vitamin B12 Tab*) 500 mcg PO BID [facility] Last Admin: 01/10/18 10:11 Dose: 500 mcg Dextrose (D50w Syringe 50 Ml*) 12.5 gm IV PUSH .FOR FS < 60 - SS PRN PRN Reason: FS < 60 Docusate Sodium (Colace Cap*) 100 mg PO BID PRN PRN Reason: CONSTIPATION Last Admin: 01/08/18 21:19 Dose: 100 mg Dronedarone (Multaq Tab*) 400 mg PO BID [facility] Last Admin: 01/10/18 10:10 Dose: 400 mg Ferrous Sulfate (Ferrous Sulfate Tab*) 325 mg PO BID [facility] Last Admin: 01/10/18 10:09 Dose: 325 mg Heparin Sodium (Porcine) (Heparin Vial(*)) 5,000 units SUBCUT Q8HR [facility] Last Admin: 01/10/18 14:07 Dose: 5,000 units Insulin Glargine (Lantus(*)) 44 units SUBCUT QAM [facility] Last Admin: 01/10/18 10:08 Dose: 44 units Insulin Human Lispro (Humalog*) 0 units SUBCUT AC [facility]; Protocol Last Admin: 01/10/18 11:55 Dose: 3 units Levalbuterol HCl (Xopenex 0.63mg/3ml Neb*) 0.63 mg INH Q6H PRN PRN Reason: SHORTNESS OF BREATH Metoprolol Tartrate (Lopressor Tab*) 25 mg PO BID [facility] Last Admin: 01/10/18 10:11 Dose: 25 mg Omeprazole (Prilosec Cap*) 40 mg PO BID [facility] Stop: 01/20/18 16:31 Last Admin: 01/10/18 10:08 Dose: 40 mg Omeprazole (Prilosec Cap*) 40 mg PO DAILY@0730 [facility] Oxycodone HCl (Roxycodone Tab*) 10 mg PO Q4H PRN PRN Reason: PAIN Last Admin: 01/10/18 15:49 Dose: 10 mg Senna (Senokot Tab*) 2 tab PO BEDTIME [facility] Last Admin: 01/09/18 21:25 Dose: 2 tab Sodium Biphosphate/Sodium Phosphate (Fleet Enema*) 1 bottle NC DAILY PRN PRN Reason: CONSTIPATION Sodium Chloride (Sodium Chloride Tab*) 1 gm PO DAILY [facility] Last Admin: 01/10/18 10:09 Dose: 1 gm Tiotropium [place] (Spiriva Cap.Inh*) 1 cap INH DAILY [facility] Last Admin: 01/10/18 10:11 Dose: Not Given Vital Signs - 8 hr 01/10/18 01/10/18 01/10/18 11:10 11:43 15:49 Temperature 98.0 F Pulse Rate 87 Respiratory 18 18 16 Rate Blood Pressure 146/68 (mmHg) O2 Sat by Pulse 98 Oximetry Oxygen Devices in Use Now: None Eyes: No Scleral Icterus Ears/Nose/Mouth/Throat: Clear Oropharnyx, Mucous Membranes Moist Neck: NL Appearance and Movements; NL JVP, Trachea Midline Respiratory: Symmetrical Chest Expansion and Respiratory Effort, Clear to Auscultation Cardiovascular: NL Sounds; No Murmurs; No JVD Abdominal: NL Sounds; No Tenderness; No Distention Extremities: - - swelling noted to left lower leg Skin: - - left lower leg with redness and swelling improving, blistering noted to rodriguez, Neurological: Alert and Oriented x 3 Nutrition: Taking PO's Result Diagrams: 01/08/18 05:29 01/10/18 07:25 Assess/Plan/Problems-Billing Assessment: Patient is a 62yo male with a PMH for morbid obesity, diabetes, MAKAYLA, who was recently admitted for LLE cellulitis and treated with IV antibiotics with gradual improvement outpatient but with recent worsening of pain and worsening of hyponatremia down to 119 without symptoms. - Patient Problems (1) Hyponatremia Current Visit: Yes Status: Acute Code(s): E87.1 - HYPO-OSMOLALITY AND HYPONATREMIA SNOMED Code(s): 38743712 Comment: - Low of 119, now 126 - Hypotonic, Urine studies consistent with SIADH - Improving slowly with fluid restriction- continue fluid restriction - will recheck BMP in the AM (2) Cellulitis Current Visit: No Status: Acute Code(s): L03.90 - CELLULITIS, UNSPECIFIED SNOMED Code(s): 083750083 Comment: - continues to improve slowly - continues to have intermittent pain, continue Keflex due to lack of purulence. - remains afebrile - Encouraged to keep leg elevated. (3) Atrial fibrillation Current Visit: No Status: Acute Code(s): I48.91 - UNSPECIFIED ATRIAL FIBRILLATION SNOMED Code(s): 78488908 Comment: - Not on Anticoagulation due to previous GIB - Continue with multaq and metoprolol - Regular rhythm on exam. (4) COPD (chronic obstructive pulmonary disease) Current Visit: No Status: Chronic Code(s): J44.9 - CHRONIC OBSTRUCTIVE PULMONARY DISEASE, UNSPECIFIED SNOMED Code(s): 47175893 Comment: - No signs of exacerbation at this time. - Continue spiriva and prn nebs. (5) DM2 (diabetes mellitus, type 2) Current Visit: No Status: Chronic Comment: -blood glucose today 152-189 - Hba1c 8.8% early this month - Long acting insulin and SSI coverage with transition to scheduled insulin AC. (6) HTN (hypertension) Current Visit: No Status: Chronic Code(s): I10 - ESSENTIAL (PRIMARY) HYPERTENSION SNOMED Code(s): 98799804 Comment: - Normotensive, continue metoprolol (7) Hyperlipidemia Current Visit: No Status: Chronic Code(s): E78.5 - HYPERLIPIDEMIA, UNSPECIFIED SNOMED Code(s): 74106314 Comment: Continue lipitor as a substitute for zocor. (8) DVT prophylaxis Current Visit: No Status: Acute Code(s): PBU1879 - SNOMED Code(s): 722729300 Comment: - HSQ (9) Full code status Current Visit: No Status: Acute Code(s): Z78.9 - OTHER SPECIFIED HEALTH STATUS SNOMED Code(s): 469706281 Status and Disposition: Inpatient for safe treatment of severe hyponatremia. improving
[2018-01-10] MEDS: Atorvastatin* 20 MG TAB PO SCH (17:44)
[2018-01-10] MEDS: Senna TAB PO SCH (20:24)
[2018-01-11] MEDS: oxyCODONE TAB* 5 MG TAB PO PRN ×3 (01:11→09:21)
[2018-01-11] MEDS: Acetaminophen TAB* 325 MG PO PRN ×3 (01:11→09:20)
[2018-01-11] MEDS: Docusate CAP* 100 MG PO PRN (04:09)
[2018-01-11] MEDS: Albuterol HFA INHALER* 8 gm MDI INH PRN ×2 (04:09→09:21)
[2018-01-11] MEDS: Heparin VIAL(*) 5000 UNITS/ML VIAL (FIVE THOUSAND) SUBCUT SCH (05:20)
[2018-01-11 07:12] LABS: EGFR Non-African American 76.9 (>60)
--- NOTE | 2018-01-11 09:12 | PN ---
Subjective Date of Service: 01/11/18 Interval History: Mr. Porter reports feeling well today. He has some intermittent pain in his left leg but reports that it is reasonably controlled on the current pain med regimen. He denies chest pain, SOB, nausea, or abdominal pain. He understands his diagnosis of low sodium and know that he needs to restrict his fluid intake. Family History: Unchanged from Admission Social History: Unchanged from Admission Past Medical History: Unchanged from Admission Objective Active Medications: Acetaminophen (Tylenol Tab*) 650 mg PO Q4H PRN Albuterol (Ventolin Hfa Inhaler*) 2 puff INH Q4H PRN Atorvastatin Calcium (Lipitor*) 20 mg PO QPM [facility] Bisacodyl (Dulcolax Supp*) 10 mg LA DAILY PRN Cephalexin HCl (Keflex Cap*) 500 mg PO TID [facility] Cyanocobalamin (Vitamin B12 Tab*) 500 mcg PO BID [facility] Dextrose (D50w Syringe 50 Ml*) 12.5 gm IV PUSH .FOR FS < 60 - SS PRN Docusate Sodium (Colace Cap*) 100 mg PO BID PRN Dronedarone (Multaq Tab*) 400 mg PO BID [facility] Ferrous Sulfate (Ferrous Sulfate Tab*) 325 mg PO BID [facility] Heparin Sodium (Porcine) (Heparin Vial(*)) 5,000 units SUBCUT Q8HR [facility] Insulin Glargine (Lantus(*)) 44 units SUBCUT QAM [facility] Insulin Human Lispro (Humalog*) 0 units SUBCUT AC [facility]; Protocol Levalbuterol HCl (Xopenex 0.63mg/3ml Neb*) 0.63 mg INH Q6H PRN Metoprolol Tartrate (Lopressor Tab*) 25 mg PO BID [facility] Omeprazole (Prilosec Cap*) 40 mg PO BID AC [facility] Omeprazole (Prilosec Cap*) 40 mg PO DAILY@0730 [facility] Oxycodone HCl (Roxycodone Tab*) 10 mg PO Q4H PRN Senna (Senokot Tab*) 2 tab PO BEDTIME [facility] Sodium Biphosphate/Sodium Phosphate (Fleet Enema*) 1 bottle [place] DAILY PRN Sodium Chloride (Sodium Chloride Tab*) 1 gm PO DAILY [facility] Tiotropium [place] (Spiriva Cap.Inh*) 1 cap INH DAILY [facility] Vital Signs: Temp Pulse Resp BP Pulse Ox 97.3 F 72 20 142/67 100 01/11/18 03:54 01/11/18 03:54 01/11/18 05:18 01/11/18 03:54 01/11/18 03:54 Oxygen Devices in Use Now: None Appearance: Male sitting up in chair in NAD Eyes: No Scleral Icterus Ears/Nose/Mouth/Throat: Mucous Membranes Moist Neck: Trachea Midline Respiratory: Symmetrical Chest Expansion and Respiratory Effort, Clear to Auscultation Cardiovascular: NL Sounds; No Murmurs; No JVD, - - +1 edema, B LEs Lymphatic: No Cervical Adenopathy Skin: - - Erythema to left calf, unchanged since admission Neurological: Alert and Oriented x 3, NL Muscle Strength and Tone Nutrition: Taking PO's Result Diagrams: 01/08/18 05:29 01/11/18 06:18 Assess/Plan/Problems-Billing Assessment: Ms. Porter is a 62yo male with a PMH for morbid obesity, diabetes, MAKAYLA, who was recently admitted for LLE cellulitis and treated with IV antibiotics with gradual improvement outpatient but with recent worsening of pain and worsening of hyponatremia down to 119 without symptoms. - Patient Problems (1) Hyponatremia Current Visit: Yes Comment: - Low of 119, now 125 - Hypotonic, Urine studies consistent with SIADH - Improving slowly with fluid restriction- increase NaCl tabs to BID (2) Cellulitis Comment: - Slow improvement - Continue Keflex. - Encouraged to keep leg elevated. (3) Atrial fibrillation Comment: - Not on Anticoagulation due to previous GIB - Continue with multaq and metoprolol (4) COPD (chronic obstructive pulmonary disease) Comment: - No signs of exacerbation at this time. - Continue spiriva and prn nebs. (5) DM2 (diabetes mellitus, type 2) Comment: - BGs 130-160a - Hba1c 8.8% early this month - Continue lantus and SSI coverage with meals. (6) HTN (hypertension) Comment: - Normotensive, continue metoprolol (7) MAKAYLA (obstructive sleep apnea) Comment: - Continue CPAP (8) DVT prophylaxis Comment: - HSQ (9) Full code status Comment: Status and Disposition: Discharge to home.
[2018-01-11 09:17] VITALS: BP 140/83
[2018-01-11] MEDS: Omeprazole CAP* 20 MG PO SCH (09:17)
[2018-01-11] MEDS: Cyanocobalamin TAB* 500 MCG PO SCH (09:18)
[2018-01-11] MEDS: Ferrous Sulfate TAB* 325 MG PO SCH (09:18)
[2018-01-11] MEDS: Cephalexin CAP* 500 MG PO SCH ×2 (09:18→13:01)
[2018-01-11] MEDS: Insulin GLARGINE(*) 1 UNITS UNIT SUBCUT SCH (09:19)
[2018-01-11] MEDS: Dronedarone TAB* 400 MG PO SCH (09:19)
[2018-01-11] MEDS: Sodium Chloride TAB* 1 GM PO SCH (09:19)
[2018-01-11] MEDS: Metoprolol Tartrate TAB* 25 MG PO SCH (09:19)
[2018-01-11] MEDS: Insulin LISPRO* 1 UNITS UNIT SUBCUT SCH ×2 (09:19→13:01)
[2018-01-11] MEDS: Tiotropium CAP.INH* CAP.INH/18 MCG (USE ORDER SET !) INH SCH (09:24)
[2018-01-11] MEDS ORDERED: Sodium Chloride TAB* 1 GM PO SCH (21:00)
--- NOTE | 2018-01-12 03:44 | DS ---
CC: Dr. Childress* [facility] MEDICINE DISCHARGE SUMMARY: DATE OF ADMISSION: 01/06/18 DATE OF DISCHARGE: 01/11/18 PRIMARY CARE PHYSICIAN: Dr. Childress. ATTENDING PHYSICIAN: Kavya Alonzo DO* (dictation provided by Yanet Herndon NP) PRIMARY DIAGNOSES: 1. Hyponatremia suspected secondary to syndrome of inappropriate antidiuretic hormone secretion. 2. Slowly healing cellulitis. SECONDARY DIAGNOSES: 1. Morbid obesity. 2. Atrial fibrillation, not on anticoagulation due to bleeding of duodenal ulcer. 3. Chronic obstructive pulmonary disease. 4. Insulin-dependent type 2 diabetes. 5. Hypertension. 6. History of an upper GI bleed secondary to duodenal ulcer. 7. History of broken bone in his right lower extremity. 8. Obstructive sleep apnea, on CPAP. DISCHARGE MEDICATIONS: 1. Vitamin D 2000 units p.o. daily. 2. Albuterol 2 puffs inhaled q.4 hours p.r.n. 3. Tylenol 1000 mg p.o. q.6 hours p.r.n. 4. Spiriva 1 inhalation daily. 5. Simvastatin 40 mg p.o. q.p.m. 6. Potassium chloride 10 mEq p.o. q.a.m. 7. Omeprazole 40 mg p.o. b.i.d. 8. Metoprolol tartrate 25 mg p.o. b.i.d. 9. Levalbuterol 0.63 mg inhaled q.6 hours p.r.n. 10. Lantus insulin 44 units subcutaneously q.a.m. 11. Ferrous sulfate 325 mg p.o. b.i.d. 12. Dronedarone 400 mg p.o. b.i.d. 13. Cyanocobalamin 500 mcg p.o. b.i.d. 14. Oxycodone 10 mg p.o. q.6 hours p.r.n. (total dose 30 tabs). 15. Sodium chloride 1 g p.o. b.i.d. 16. Docusate 100 mg p.o. b.i.d. p.r.n. 17. Keflex 500 mg p.o. t.i.d. x10 days. HOSPITAL COURSE: Mr. Porter is a 62-year-old male with a past medical history as outlined above who presented to the emergency room on 01/06/18 with concern for pain in his left leg. Please see the dictated H and P from myself for complete details. In brief, Mr. Porter states that since being discharged to the home, he had been followed up on by his primary care physician who had refills for his oxycodone. The patient states that Dr. Childress was no longer comfortable continuing the refills of oxycodone or that the current dosage was not adequate in controlling his left leg pain and therefore, he presented to the emergency room for evaluation. On evaluation, the patient had persistent redness to his left leg that was consistent with the erythema that he had had on discharge from the previous hospitalization several days prior. However, it was noted that the patient did have a new hyponatremia with a sodium of 119. Mr. Porter was admitted to the hospital for treatment of hyponatremia. His workup showed a urine sodium of 79 and a urine osmo of 309 with a serum osmolality of 267. The patient reported that he drank ten 16-ounce bottles of water a day as well as a gallon of tea each day. It was suspected that this likely combined with the Bactrim that he had been on for treatment of cellulitis prior to this admission as well as perhaps a component of SIADH were contributing to his low sodium. The patient was placed on a fluid restriction at 1.2 L a day. By the following day, his sodium had risen to 121. When the sodium continued to stay in the low 120s, the patient was given the added treatment of a sodium chloride tab 1 g daily. Over the intervening days, the patient's sodium was about 125 to 126 and it has been unchanged. My recommendation is that he continue the fluid restriction, that he add a second salt tab daily, and then he had close followup with recheck of his labs on Tuesday with forwarding to Dr. Childress. The patient has been asymptomatic from his hyponatremia. Mr. Porter has been given oxycodone 10 mg up to 3 times a day while in the hospital for pain in his leg and he states that this is a reasonable regimen for him. I am writing for 30 tabs of that and he can follow up with Dr. Childress regarding any further refills. The patient has persistent left lower extremity redness with no open draining areas. I suspect that the leg is just healing very slowly due to his morbid obesity and difficulty keeping the leg elevated. I have again instructed to him that he should keep the leg elevated and that he will continue another round of Keflex, which was started here in the hospital. Mr. Porter is doing well today and plans are for discharge to home. DISPOSITION: To home. DIET: Consistent carbohydrate. ACTIVITY: As tolerated with elevation of left lower extremity at all times while at rest. FOLLOWUP PLANS: 1. Please follow up on 01/13/18 for basic metabolic panel with results forwarded to Dr. Childress. 2. The patient was stating some issue having difficulty following up with Dr. Childress regarding pain medication. I have instructed the patient that if he has any difficulty with followup that he can call the [facility] and see if they might be able to help and he was provided with the phone number. TIME SPENT: Approximately 60 minutes were spent in the discharge of this patient, more than half of the time spent with the patient at the bedside reviewing the events leading up to this hospitalization, performing the physical examination, and reviewing my plan of care. YANET HERNDON NP [id number]/CPS #: [id number] [place]
[2018-01-21] MEDS ORDERED: Omeprazole CAP* 20 MG PO SCH (07:30)
== END 2018-01-11 13:25 | disposition home health service (06) | DRG 644 ==
LOC: ED 18:42 → MED 21:46 → OBSVTOIN 01-08 09:02
PROVIDERS: ADMIT Internal Medicine; ATTEND Hospitalist
DX: E22.2 Syndrome of inappropriate secretion of antidiuretic hormone (principal); Z68.43 Body mass index [BMI] 50.0-59.9, adult; L03.116 Cellulitis of left lower limb; K59.00 Constipation, unspecified; E11.9 Type 2 diabetes mellitus without complications; E03.9 Hypothyroidism, unspecified; I48.91 Unspecified atrial fibrillation; I11.0 Hypertensive heart disease with heart failure; I50.9 Heart failure, unspecified; G47.33 Obstructive sleep apnea (adult) (pediatric); E78.5 Hyperlipidemia, unspecified; J44.9 Chronic obstructive pulmonary disease, unspecified; E66.01 Morbid (severe) obesity due to excess calories; K21.9 Gastro-esophageal reflux disease without esophagitis; Z87.442 Personal history of urinary calculi; Z88.8 Allergy status to other drugs, medicaments and biological substances; Z83.3 Family history of diabetes mellitus; Z72.89 Other problems related to lifestyle; Z87.891 Personal history of nicotine dependence; Z80.1 Family history of malignant neoplasm of trachea, bronchus and lung; Z79.4 Long term (current) use of insulin
CPT/HCPCS: 36415; 80048; 81003; 82533; 83605; 83735; 83930; 83935; 84300; 84443; 85025; 86140; 89190; 94640; 94660; 99283; A9270-GY; G0378; J1644; J1940

== ENCOUNTER 2018-02-06 11:36 | Emergency (ER) | payer MEDICARE, MEDICAID ==
[2018-02-06] MEDS ORDERED: LORazepam TAB(*) 1 MG PO ONE (12:19)
--- NOTE | 2018-02-06 12:24 | ED ---
Psychiatric Complaint - HPI Summary HPI Summary: Patient is a 62 y/o M presenting to ED via ambulance with complaints of increasing anxiety and restlessness onsetting after he was admitted to [facility] [facility] the day before of this year for sepsis. He reports having finished his antibiotic course. SOB, chest pain, palpitations and pain are denied at this time. He requests DVT study as he states that when he wakes up in the morning his feet are asleep. He reports no other Sx. No Hx of DVT. Home nurse had recommended that he be evaluated as he "was not right", nurse reported erythema of feet. On triage, pain is denied, nothing is noted to aggravate/alleviate Sx, SI/HI denied. Home medications and allergies are reviewed. - History Of Current Complaint Chief Complaint: EDGeneral Time Seen by Provider: 02/06/18 11:46 Hx Obtained From: Patient Onset/Duration: Lasting Weeks - anxiety since hospital admission the day before , Still Present, Worse Since Timing: Weeks - anxiety since hospital admission the day before Severity Currently: None - pain denied Character: Anxious Aggravating Factor(s): Nothing Alleviating Factor(s): Nothing Associated Signs And Symptoms: Positive: Sleep Disturbance - restless Has Suicidal: Denies: Thoughts Has Homicidal: Denies: Thoughts - Allergies/Home Medications Allergies/Adverse Reactions: Allergies Allergy/AdvReac Type Severity Reaction Status Date / Time metformin Allergy Rash Verified 01/06/18 18:56 PMH/Surg Hx/FS Hx/Imm Hx Endocrine/Hematology History: Reports: Hx Anticoagulant Therapy - Xeralto, Hx Diabetes, Hx Thyroid Disease - hypothyroid, reports no longer on meds Cardiovascular History: Reports: Hx Atrial Fibrillation, Hx Congestive Heart Failure, Hx Hypercholesterolemia, Hx Hypertension, Other Cardiovascular Problems /Disorders - hyperlipidemia, a-fib Respiratory History: Reports: Hx Asthma, Hx Chronic Obstructive Pulmonary Disease (COPD), Hx Pneumonia, Hx Sleep Apnea - cpap, Other Respiratory Problems/ Disorders - copd GI History: Reports: Hx Gastroesophageal Reflux Disease, Hx Gastrointestinal Bleed - Admitted with GI bleed, Other GI Disorders - gi bleed 2015 - [place] [facility] [place] jorge BUCKLEY History: Reports: Hx Kidney Stones - x3 -reports passed on their own Denies: Hx Dialysis, Hx Renal Disease, Other Problems/Disorders - DENIES Sensory History: Reports: Hx Contacts or Glasses - did not bring to hospital Denies: Hx Hearing Aid Opthamlomology History: Reports: Hx Contacts or Glasses - did not bring to hospital - Surgical History Surgery Procedure, Year, and Place: EAR DRUM SURGERY [address] [place] [address]. [place] [facility] [place]. tongue biopsy and #30 tooth extraction [place] Nov 2016 Hx Anesthesia Reactions: No - Immunization History Date of Tetanus Vaccine: UTD Date of Influenza Vaccine: UTD Infectious Disease History: No Infectious Disease History: Denies: Hx of Known/Suspected MRSA, Traveled Outside the [place] in Last 30 Days - Family History Known Family History: Positive: Diabetes, Other - both parents passed from cancer Family History: Denies FHx anesthesia reaction - Social History Alcohol Use: Occasionally Alcohol Amount: 2-4 whiskey drinks week Hx Substance Use: No Substance Use Type: Reports: None Hx Tobacco Use: Yes Smoking Status (MU): Former Smoker Amount Used/How Often: 1 ppd for 40 yrs Review of Systems Negative: Palpitations, Chest Pain Negative: Shortness Of Breath Positive: Other - erythema of feet Neurological: Other - feet are asleep when he wakes up Positive: Anxious All Other Systems Reviewed And Are Negative: Yes Physical Exam - Summary Physical Exam Summary: VITAL SIGNS: Reviewed. GENERAL: Patient is a well-developed and obese male who is lying comfortable in the stretcher. Patient is not in any acute respiratory distress. HEAD AND FACE: No signs of trauma. No ecchymosis, hematomas or skull depressions. No sinus tenderness. EYES: PERRLA, EOMI x 2, No injected conjunctiva, no nystagmus. EARS: Hearing grossly intact. Ear canals and tympanic membranes are within normal limits. MOUTH: Oropharynx within normal limits. NECK: Supple, trachea is midline, no adenopathy, no JVD, no carotid bruit, no c- spine tenderness, neck with full ROM. CHEST: Symmetric, no tenderness at palpation LUNGS: Clear to auscultation bilaterally. No wheezing or crackles. CVS: Regular rate and rhythm, S1 and S2 present, no murmurs or gallops appreciated. ABDOMEN: Soft, non-tender. No signs of distention. No rebound no guarding, and no masses palpated. Bowel sounds are normal. EXTREMITIES: FROM in all major joints, no edema, no cyanosis or clubbing. NEURO: Alert and oriented x 3. No acute neurological deficits. Speech is normal and follows commands. SKIN: Dry and warm Triage Information Reviewed: Yes Vital Signs On Initial Exam: Initial Vitals Temp Pulse Resp BP Pulse Ox 97 F 86 20 136/83 95 02/06/18 11:52 02/06/18 11:52 02/06/18 11:52 02/06/18 11:52 02/06/18 11:52 Vital Signs Reviewed: Yes Diagnostics - Vital Signs Vital Signs Temp Pulse Resp BP Pulse Ox 02/06/18 11:52 97 F 86 20 136/83 95 - Laboratory Lab Statement: Any lab studies that have been ordered have been reviewed, and results considered in the medical decision making process. Course/Dx - Course Assessment/Plan: Patient is a 62 y/o M presenting to ED via ambulance with complaints of increasing anxiety and restlessness onsetting after he was admitted to [facility] [facility] the day before thanksgiving of this year for sepsis. He reports having finished his antibiotic course. SOB, chest pain, palpitations and pain are denied at this time. He requests DVT study as he states that when he wakes up in the morning his feet are asleep. He reports no other Sx. No Hx of DVT. Home nurse had recommended that he be evaluated as he "was not right", nurse reported erythema of feet. On triage, pain is denied, nothing is noted to aggravate/alleviate Sx, SI/HI denied. Home medications and allergies are reviewed. The patient does have any complaints except that the patient has anxiety and mild insomnia. The patient denies any other complaint. Denies any chest pain, SOB or palpitations. Therefore the patient will be given a prescription for Atarax and was discharged home with follow-up with PCP. Patient also was given 1 dose of Ativan by mouth in the ED. I discussed all the findings and test results with the patient. Patient was instructed to return to the emergency room immediately if any of the symptoms return or worsens. Plan of care was discussed with the patient and understands and agrees. All questions were answered at patient satisfaction. There were no further complaints or concerns. Lung exam before discharge: CTA B/L. Good air exchange. No wheezing or crackles heard. CVS: S1 and S2 present. No murmurs appreciated. Patient is alert and oriented x 3. Patient is hemodynamically stable. Patient will be discharged home with follow up PCP in the next 2-3 days - Differential Dx/Clinical Impression Provider Diagnosis: Anxiety Discharge - Sign-Out/Discharge Documenting (check all that apply): Patient Departure - discharge - Discharge Plan Condition: Stable Disposition: HOME Prescriptions: hydrOXYzine HCL TAB* [Atarax 25 MG TAB*] 25 mg PO TID PRN #30 tab PRN Reason: Anxiety Patient Education Materials: Anxiety (ED) Referrals: Salazar Childress MD [Primary Care Provider] - 3 Days Additional Instructions: RETURN TO ED FOR ANY NEW OR WORSENING SYMPTOMS. FOLLOW UP WITH PRIMARY CARE PHYSICIAN IN THREE DAYS. - Billing Disposition and Condition Condition: STABLE Disposition: Home - Attestation Statements Document Initiated by Jina: Yes Documenting Scribe: VOLODYMYR MEDEIROS Provider For Whom Jina is Documenting (Include Credential): EDUARDO LUCAS MD Scribe Attestation: VOLODYMYR Ayers , scribed for EDUARDO LUCAS MD on 02/06/18 at 1811. Scribe Documentation Reviewed: Yes Provider Attestation: The documentation as recorded by the VOLODYMYR duff accurately reflects the service I personally performed and the decisions made by EDUARDO ross MD Status of Scribe Document: Viewed
[2018-02-06 12:34] VITALS: BP 137/85
== END 2018-02-06 12:33 | disposition home or self-care (01) ==
LOC: ED 11:36
DX: F41.9 Anxiety disorder, unspecified (principal); I48.91 Unspecified atrial fibrillation; Z79.01 Long term (current) use of anticoagulants; Z88.8 Allergy status to other drugs, medicaments and biological substances; Z87.891 Personal history of nicotine dependence
CPT/HCPCS: 99282; A9270-GY

== ENCOUNTER 2018-06-02 09:29 | Emergency (ER) | payer MEDICARE, MEDICAID ==
[2018-06-02 09:39] VITALS: BP 114/81
--- NOTE | 2018-06-02 10:06 | UC ---
Respiratory Complaint HPI - HPI Summary HPI Summary: 63 y/o male presents to the urgent care c/o nasal congestion w/ clear nasal discharge and dry cough w/ moderate PND for the past 2 days. yesterday he developed mild wheezing. He called his PCP and he Rx Prednisone PO 5mg last night. He has not done any nebulizer treatment yet. He wants to make sure he doesn't have anything contagious , since his has Pancreatic cancer. Pt states PMHX of COPD and asthma and he has the Duo neb and albuterol inhaler, but has not done any treatments yet. pt denies SOB, chest pain, dizziness, abdominal pain, N/V/D. - History of Current Complaint Chief Complaint: UCRespiratory Stated Complaint: CONGESTED Time Seen by Provider: 06/02/18 10:03 Hx Obtained From: Patient Onset/Duration: Gradual Onset, Lasting Days - 2 days, Still Present Timing: Intermittent Episodes Severity Initially: Mild Severity Currently: Mild Pain Intensity: 2 Pain Scale Used: 0-10 Numeric Character: Cough: Nonproductive Aggravating Factors: Recumbent Position, Other - his PCP Rx Prednisone 5mg PO last night to alleviate symptoms Alleviating Factors: OTC Meds Associated Signs And Symptoms: Positive: Chills, Wheezing - mild, URI, Nasal Congestion - clear, Sinus Discomfort. Negative: Fever - Risk Factors Pulmonary Embolism Risk Factors: Negative Cardiac Risk Factors: Negative Pseudomonas Risk Factors: Negative Tuberculosis Risk Factors: Negative - Allergies/Home Medications Allergies/Adverse Reactions: Allergies Allergy/AdvReac Type Severity Reaction Status Date / Time metformin Allergy Rash Verified 06/02/18 09:40 Home Medications: Home Medications Aspirin [Adult Aspirin Regimen] 81 mg PO DAILY WITH MEAL 06/02/18 [History Confirmed 06/02/18] predniSONE [Prednisone 5 MG TAB] 5 mg PO DAILY WITH MEAL 06/02/18 [History Confirmed 06/02/18] PMH/Surg Hx/FS Hx/Imm Hx Previously Healthy: Yes Endocrine History: Dyslipidemia Cardiovascular History: Hypertension, Atrial Fibrillation Respiratory History: COPD, Asthma Other History Of: Anticoagulant Therapy - Xeralto - Surgical History Surgical History: Yes Surgery Procedure, Year, and Place: EAR DRUM SURGERY 1963 [place] BOTH EARS - CLEARED WITH CT OF IAC BY DR SERRANO - CT OF LSP ALREADY DONE - SUSANNA Suarez RN/MRI. right ankle surgery [facility] [place] 2011 ( W/ PLATE). tongue biopsy and #30 tooth extraction - [place] Nov 2016 - Family History Known Family History: Positive: Diabetes, Other - both parents passed from cancer Family History: Denies FHx anesthesia reaction - Social History Occupation: Employed Full-time Lives: With Family Alcohol Use: Occasionally Alcohol Amount: 2-4 whiskey drinks week Substance Use Type: None Smoking Status (MU): Former Smoker Amount Used/How Often: 1 ppd for 40 yrs When Did the Patient Quit Smoking/Using Tobacco: 2008 - Immunization History Most Recent Influenza Vaccination: Oct 2017 Most Recent Tetanus Shot: 2012 Most Recent Pneumonia Vaccination: 2 years ago Review of Systems All Other Systems Reviewed And Are Negative: Yes Constitutional: Positive: Negative Skin: Positive: Negative Eyes: Positive: Negative ENT: Positive: Sore Throat - mild, Nasal Discharge - clear, Sinus Congestion, Other - PND Respiratory: Positive: Cough - dry, Other - midl wheezing Cardiovascular: Positive: Negative Gastrointestinal: Positive: Negative Genitourinary: Positive: Negative Motor: Positive: Negative Neurovascular: Positive: Negative Musculoskeletal: Positive: Myalgia Neurological: Positive: Headache - mild Psychological: Positive: Negative Is Patient Immunocompromised?: No Physical Exam - Summary Physical Exam Summary: Vital Signs Reviewed: Yes General: well developed, well nourished obese male sitting in the examining table w/o any apparent distress Eyes: Positive: Conjunctiva Clear - PERRLA, EOMI, fundi grossly normal ENT: Positive: Normal ENT inspection, Hearing grossly normal, Pharynx normal, Nasal congestion - edematous and erythematous nasal mucosa, Nasal drainage - yellowish drainage, TMs normal. Negative: Tonsillar swelling, Tonsillar exudate Neck: Positive: Supple, Nontender, No Lymphadenopathy Respiratory: no orthopnea or dyspnea. Able to speak in full sentences, no retractions or accessory muscle use, no tripod position, stridor, or head bobbing. Positive breath sounds bilaterally. B/L posterior lungs w/ mild wheezing and no rhonchi, no crackles or rales. Cardiovascular: Positive: RRR, No Murmur, Pulses Normal, Brisk Capillary Refill Abdomen Description: Positive: Nontender, No Organomegaly, Soft. Negative: CVA Tenderness (R), CVA Tenderness (L) Bowel Sounds: Positive: Present Musculoskeletal Exam: Normal Musculoskeletal: Positive: Strength Intact, ROM Intact, No Edema Neurological Exam: Normal Psychological Exam: Normal Skin Exam: Normal Triage Information Reviewed: Yes Vital Signs: Initial Vital Signs Temp 97.8 F 06/02/18 09:35 Pulse 88 06/02/18 09:35 Resp 20 06/02/18 09:35 BP 114/81 06/02/18 09:35 Pulse Ox 96 06/02/18 09:35 Respiratory Course/Dx - Course Course Of Treatment: 63 y/o male presents to the urgent care c/o nasal congestion w/ clear nasal discharge and dry cough w/ moderate PND for the past 2 days. yesterday he developed mild wheezing. He called his PCP and he Rx Prednisone PO 5mg last night. He has not done any nebulizer treatment yet. He wants to make sure he doesn't have anything contagious , since his has Pancreatic cancer. Pt states PMHX of COPD and asthma and he has the Duo neb and albuterol inhaler, but has not done any treatments yet. pt denies SOB, chest pain, dizziness, abdominal pain, N/V/D. Hx obtained. Pt is hemodynamically stable w/ URI and mild posterior upper lungs w/ mild wheezing on examination, O2Sat:96% which he states is his normal. Rapid strep: negative, Influenza A&B: negative. Pt given a Duoneb treatment by nurse. Pt tolerated well treatment and b/L lungs cleared. Pt advised to continue taking the Prednisone Rx by his PCP and d the nebulizer treatment to prevent a COD exacerbation. Strongly advised to f/u w/ his PCP in 3 days if not improvement of symptoms.D/C instructions explained. Pt understood and agreed w/ plan of care . pt tleft clinic ambulating and feeling better. - Differential Dx/Diagnosis Differential Diagnosis/HQI/PQRI: Asthma, Bronchitis, Influenza, Laryngitis, Sinusitis Provider Diagnosis: Upper respiratory infection, viral, Wheezing Discharge - Sign-Out/Discharge Documenting (check all that apply): Patient Departure - d/c home All imaging exams completed and their final reports reviewed: No Studies - Discharge Plan Condition: Stable Disposition: HOME Patient Education Materials: Upper Respiratory Infection (ED) Referrals: Salazar Childress MD [Primary Care Provider] - 3 Days Additional Instructions: 1- Rapid strep: negative, Rapid influenza A&B: negative. Please continue taking the Prednisone PO as recommended by your PCP last night. Encourage hand washing and wear a mask to avoid spread to your . 2-Use the Duoneb nebulizer treatment or the Albuterol inhaler you have at home to alleviate mild wheezing as directed . Increase fluid intake, rest and eat well. 3- If symptoms do not improve or worsen or your develop SOB with fever and severe wheezing please go immediately to the ER further evaluation and treatment. 4- F/u with your PCP in 3 days if symptoms are not improving for further management on your COPD - Billing Disposition and Condition Condition: STABLE Disposition: Home
[2018-06-02] MEDS ORDERED: Albuterol/Ipratropium NEB.SOL* Albuterol 2.5 MG/Ipratropium 0.5 MG 3 ML INH ONE (10:26)
[2018-06-02 10:44] LABS: Influenza A Molecular NEGATIVE (Negative); Influenza B Molecular NEGATIVE (Negative)
== END 2018-06-02 11:03 | disposition home or self-care (01) ==
LOC: UCEAST 09:29
DX: J06.9 Acute upper respiratory infection, unspecified (principal); J44.9 Chronic obstructive pulmonary disease, unspecified; E78.5 Hyperlipidemia, unspecified; I10 Essential (primary) hypertension; I48.91 Unspecified atrial fibrillation; Z79.01 Long term (current) use of anticoagulants; Z88.8 Allergy status to other drugs, medicaments and biological substances; Z87.891 Personal history of nicotine dependence
CPT/HCPCS: 87651; 99212; A9270-GY; G0463

== ENCOUNTER 2018-07-30 09:45 | Emergency (ER) | payer MEDICARE, MEDICAID ==
--- OUTSIDE RECORDS SUMMARY | 2018-07-30 09:57 | XMS REPORT | Continuity of Care Document ---
:1955 External Reference #:[id number] Author Name Marion Morrow MD Address [address] [place] [address] Care Team Providers Name Role Phone Salazar Childress MD Primary Care Physician Unavailable Payers Date Identification Numbers Payment Provider Subscriber Effective: 2018 Policy Number: [id number] [employer] Jensen Porter PayID: [id number] [address] [place] [address] Effective: 2017 Policy Number: [id number] [facility] Jensen Porter ([place]) Expires: 2018 PayID: [id number] [address] [place] [address] Effective: 2011 Policy Number: [id number] Medicare Jensen Porter Expires: 2018 PayID: [id number] [address] [place] [address] Effective: 2018 Policy Number: [id number] Medicaid Jensen Porter Group Number: [id number] [address] Group Name: [id number] [place] [address] PayID: [id number] Problems Active Problems Provider Date Cellulitis of left lower limb Bharat Ko M.D. Onset: 12/25/2017 Type 2 diabetes mellitus Bharat Ko M.D. Onset: 12/25/2017 Hypo-osmolality and or hyponatremia Bharat Ko M.D. Onset: 12/25/2017 Chronic kidney disease Bharat Ko M.D. Onset: 12/25/2017 Long-term current use of insulin Bharat Ko M.D. Onset: 12/25/2017 Atrial fibrillation Bharat Ko M.D. Onset: 12/26/2017 Disorder of posterior pituitary Yanet Herndon N.P. Onset: 01/11/2018 Diabetic dermopathy associated with diabetes Yanet Herndon N.P. Onset: 2017 mellitus type 2 Obstructive sleep apnea syndrome Bharat Ko M.D. Onset: 12/26/2017 Essential hypertension Bharat Ko M.D. Onset: 12/26/2017 Morbid obesity Bharat Ko M.D. Onset: 12/26/2017 Chronic obstructive lung disease Bharat Ko M.D. Onset: 12/26/2017 Asthma Onset: 03/31/2015 Vitamin D deficiency Onset: 03/31/2015 Upper gastrointestinal bleeding Onset: 08/25/2015 Type 2 diabetes mellitus Onset: 02/25/2015 Spinal stenosis of lumbar region Onset: 06/16/2018 Sleep apnea Onset: 02/26/2015 Osteoarthritis Onset: 03/31/2015 Obstructive sleep apnea syndrome Onset: 08/25/2015 Mycosis Onset: 05/28/2016 Morbid obesity Onset: 02/26/2015 Iron deficiency anemia Onset: 03/31/2015 Hypothyroidism Onset: 02/26/2015 Hypertensive disorder Onset: 08/25/2015 Hyperlipidemia Onset: 02/26/2015 H/O: anticoagulant therapy Onset: 08/25/2015 Gastroesophageal reflux disease Onset: 05/28/2016 For resuscitation Onset: 08/25/2015 Ex-smoker Onset: 02/26/2015 Edema of lower extremity Onset: 05/28/2016 Dry skin Onset: 05/28/2016 Diabetic neuropathy Onset: 05/28/2016 Congestive heart failure Onset: 03/31/2015 Cobalamin deficiency Onset: 03/31/2015 Chronic renal failure Onset: 03/31/2015 Chronic obstructive lung disease Onset: 02/25/2015 Cellulitis of lower limb Onset: 01/01/2018 Atrial fibrillation with rapid ventricular Onset: 08/25/2015 response Resolved Problems Thyroid function tests abnormal Onset: 05/28/2016 Resolved: 09/09/2016 Essential hypertension Onset: 02/26/2015 Resolved: 03/09/2018 Social History Type Date Description Comments Sex Unknown Tobacco Use Start: Unknown End: Patient is a former smoker Smoking Status Reviewed: 07/19/18 Patient is a former smoker Allergies, Adverse Reactions, Alerts Active Allergies Reaction Severity Comments Date Metformin rash Severe 07/19/2018 Xarelto gi bleed 07/19/2018 Medications Active Medications SIG Qnty Indications Ordering Date Provider Percocet Take 1 tablet every Unknown 06/16/2018 10-325mg Tablets 6 hours by oral route for 30 days. Albuterol Sulfate inhale 3 ml; via Unknown 06/01/2018 nebulizer tid (2.5mg/3ML) 0.083% Nebulizer Mucinex DM Maximum Take 1 tablet twice Unknown 06/01/2018 Strength a day by oral route 60-1200mg for 10 days. Tablets ER 12HR Vitamin D3 Super Take One Capsule By Unknown 01/17/2018 Strength Mouth Every Day 2000Unit Capsules Tylenol Take 2 tablets Unknown 10/07/2017 325mg Tablets every 6 hours by oral route as needed for 10 days. Nicorette Starter Kit Chew 1 piece of gum Unknown 03/04/2017 2mg every 2 hours by Gum oral route for 30 days. [facility] B-12 Take 1000 Unknown 03/04/2017 500mcg Tablets microgram(s) every day by oral route for 90 days. Vitamin D2 Take 1 tablet every Unknown 03/04/2017 2000Unit day by oral route Tablets for 90 days. Lac-Hydrin Five Apply 1 application Unknown 05/28/2016 5% Lotion twice a day by topical route for 30 days. Econazole Nitrate Apply To The Unknown 05/28/2016 1% Affected And Cream Surrounding Areas Of Skin By Topical Route 2 Times Per Day Ferrous Sulfate Take 1 mg twice a Unknown 05/28/2016 325(65Fe) day by oral route mg Tablets for 90 days. Famotidine 20 mg by oral Unknown 03/07/2016 20mg Tablets route. Benadryl Maximum Apply 1 application Unknown 09/23/2015 Strength twice a day by 2% Cream topical route for 10 days. Vitamin B-12 Take 1 tablet every Unknown 03/31/2015 1000mcg day by oral route Tablets as directed for 90 days. Percocet 1-2 tabs po q4-6 60tabs Bharat Laurent, 11/29/2011 5-325mg Tablets prn pain M.D. Trulicity Inject 0.5 mL every Unknown 1.5mg/0.5ML week by Solution Pen-Inject subcutaneous route for 90 days. Dulera Inhale 2 puffs Unknown 200-5mcg/Act twice a day by Aerosol inhalation route for 90 days. Multaq Take One Tablet By Unknown 400mg Tablets Mouth Twice A Day Lantus Solostar Inject 40 Units In Unknown The Morning And 20 100Unit/ML Solution Units In The Pen-Inject Evening Proair HFA Inhale Two Puffs By Unknown 108(90Base) Mouth Four Times A mcg/Act Aerosol Day Metoprolol Tartrate Take One Tablet By Unknown 25mg Mouth Twice A Day Tablets Alcohol Prep Pads Use as directed Unknown 70% Pads Cyclobenzaprine HCL Take 1 tablet 3 Unknown 5mg times a day by oral Tablets route for 10 days. Azithromycin Take 1 tablet every Unknown 500mg day by oral route Tablets for 3 days. Fluticasone Propionate Bartley 1 spray twice Unknown Nasal Bartley Allergy a day by intranasal Relief 24- Hour route for 90 days. 50mcg/Act Suspension Ketoconazole Apply To The Unknown 2% Cream Affected Area(S) By Topical Route Once Daily Ipratropium [place] Bartley 2 sprays Unknown 0.06% twice a day by Solution intranasal route for 10 days. Lorazepam take 1 tablet 1 Unknown 1mg Tablets hour before procedure and can take a second 1/2 hour before procedure Furosemide Take 1 tablet every Unknown 20mg Tablets day by oral route for 90 days. Hydroxyzine HCL Take 1 tablet twice Unknown 25mg a day by oral route Tablets for 30 days. Omeprazole Magnesium Take One Capsule By Unknown Mouth Every Day 20.6(20Base) mg Capsules DR Simvastatin Take One Tablet By Unknown 40mg Tablets Mouth AT Bedtime Triamcinolone Apply A Thin Layer Unknown Acetonide To The Affected 0.1% Cream Area(S) By Topical Route 2 Times Per Day Potassium Chloride ER Take 1 tablet every Unknown day by oral route 10Meq Tablets ER for 90 days. Ibuprofen Take One Tablet By Unknown 800mg Tablets Mouth Three Times A Day as Needed Levalbuterol HCL Inhale 0.63 mL Unknown twice a day by 0.63mg/3ML Nebulizer inhalation route for 90 days. Lisinopril-Hydrochloro Take One Tablet By Unknown thiazide Mouth Every Day 20-12.5mg Tablets Prednisone take 2 tablets Unknown 10mg Tablets daily for 1 week then 1 tablet daily for two weeks Buspirone HCL Take 1 tablet twice Unknown 5mg Tablets a day by oral route for 30 days. History Medications Oxycodone-Acetaminophen Take 1 tablet Unknown - 7.5-325mg Tablets every day by oral 01/30/2018 route for 5 days. Vital Signs Date Vital Result Comment 07/19/2018 10:11am Height 70 inches 5'10" Weight 375.00 lb BP Systolic 120 mmHg BP Diastolic 80 mmHg BMI (Body Mass Index) 53.8 kg/m2 Results Test Date Facility Test Result H/L Range Note Laboratory test 03/07/2016 [facility] Lactic Acid 1.2 mmol/L N 0.5-2.0 1 finding [address] [place] [address] [phone] Comp Metabolic 03/07/2016 [facility] Sodium 135 mmol/L N 133- 145 [address] [place] [address] [phone] Potassium 3.9 mmol/L N 3.5-5.0 Chloride 100 mmol/L Low 101-111 Co2 Carbon Dioxide 28 mmol/L N 22-32 Anion Gap 7 mmol/L N 2-11 Glucose 145 mg/dL High 70-100 Blood Urea Nitrogen 9 mg/dL N 6-24 Creatinine 0.70 mg/dL N 0.67-1.17 BUN/Creatinine Ratio 12.9 N 8-20 Calcium 9.6 mg/dL N 8.6-10.3 Total Protein 7.1 g/dL N 6.4-8.9 Albumin 3.2 g/dL N 3.2-5.2 Globulin 3.9 g/dL N 2-4 Albumin/Globulin Ratio 0.8 Low 1-3 Total Bilirubin 0.50 mg/dL N 0.2-1.0 Alkaline Phosphatase 67 U/L N 34-104 Alt 19 U/L N 7-52 Ast 18 U/L N 13-39 Egfr Non- 115.4 N >60 Egfr 148.4 N >60 2 Laboratory test 03/07/2016 [facility] Magnesium 1.7 mg/dL Low 1.9-2.[address] [place] [address] [phone] Amylase 66 U/L N 29-103 Lipase 14 U/L N 11.0-82.0 C Reactive Protein 126.32 mg/L High < 5.00 3 CBC Auto Diff 03/07/2016 [facility] White Blood 6.6 10^3/uL N 3.5-10.[address] [place] [address] [phone] Red Blood Count 5.00 10^6/uL N 4.0-5.4 Hemoglobin 12.9 g/dL Low 14.0-18.0 Hematocrit 40 % Low 42-52 Mean Corpuscular Volume 81 fL N 80-94 Mean Corpuscular Hemoglobin 26 pg Low 27-31 Mean Corpuscular HGB Conc 32 g/dL N 31-36 Red Cell Distribution Width 15 % N 10.5-15 Platelet Count 178 10^3/uL N 150-450 Mean Platelet Volume 9 um3 N 7.4-10.4 Abs Neutrophils 5.0 10^3/uL N 1.5-7.7 Abs Lymphocytes 0.8 10^3/uL Low 1.0-4.8 Abs Monocytes 0.7 10^3/uL N 0-0.8 Abs Eosinophils 0.1 10^3/uL N 0-0.6 Abs Basophils 0 10^3/uL N 0-0.2 Abs Nucleated RBC 0 10^3/uL N Granulocyte % 75.4 % N 38-83 Lymphocyte % 11.4 % Low 25-47 Monocyte % 11.0 % High 1-9 Eosinophil % 2.0 % N 0-6 Basophil % 0.2 % N 0-2 Nucleated Red Blood Cells % 0.1 N Laboratory test 03/07/2016 [facility] B-Type 203 pg/mL High [address] [place] [address] Peptide BNP [phone] Partial Thrombo Time PTT 30.9 seconds N 26.0-36.3 Urinalysis Profile 03/07/2016 [facility] Urine Color Yellow N [address] [place] [address] [phone] Urine Appearance Clear N Urine Specific [place] 1.012 N 1.010-1.030 Urine pH 6.0 N 5-9 Urine Urobilinogen Negative N Negative Urine Ketones Negative N Negative Urine Protein 2+(100 mg/dL) Abnormal Negative Urine Leukocytes Negative N Negative Urine Blood 1+ Abnormal Negative Urine Nitrite Negative N Negative Urine Bilirubin Negative N Negative Urine Glucose Negative N Negative Urine White Blood Cell Trace(0-5/hpf) N Absent Urine Red Blood Cell 1+(3-5/hpf) Abnormal Absent Urine Bacteria 1+ Abnormal Absent Urine Squamous Epithelial Cell Present Abnormal Absent Urine Culture And 03/07/2016 [facility] Urine Culture SEE RESULT [address] [place] [address] [phone] 1 [facility] Severe Sepsis and Septic Shock Management Bundle Measure requires all lactic acids initially measuring >2.0 mmol/L be repeated. 2 Because ethnic data is not always readily available, this report includes an eGFR for both -Americans and non- Americans. The National Kidney Disease Education Program (NKDEP) does not endorse the use of the MDRD equation for patients that are not between the ages of 18 and 70, are , have extremes of body size, muscle mass, or nutritional status, or are non- or non-. According to the National Kidney Foundation, irrespective of diagnosis, the stage of the disease is based on the level of kidney function: Stage Description GFR(mL/min/1.73 m(2)) 1 Kidney damage with normal or decreased GFR 90 2 Kidney damage with mild decrease in GFR 60-89 3 Moderate decrease in GFR 30-59 4 Severe decrease in GFR 15-29 5 Kidney failure <15 (or dialysis) 3 Acute inflammation: >10.00 4 >100 to <200 pg/mL: likely compensated congestive heart failure (CHF) 200 to 400 pg/mL: likely moderate CHF >400 pg/mL: likely moderate to severe CHF 5 SEE RESULT BELOW Name: JENSEN PORTER : [address]: Ahmet Verde MD Acct: [id number] Unit: [id number] AGE: 60 Location: ED Re03/07/16 SEX: M Status: DEP ER SPEC: [id number] VITO: 03/07/[address] [facility] [address]: Rashida VELAZCO REQ: [id number] RECD: 03/07/16 STATUS: EVA DUKES DR: Salazar Childress MD PC Ahmet Verde MD _ SOURCE: URINE SPDESC: ORDERED: Urine Culture Procedure Result Reported Site Urine Culture Final 03/08/16- 1307 ML No Growth (<1,000 CFU/mL) * ML - MAIN LAB (PSC1) . END OF REPORT * ML=Testing performed at Main Lab DEPARTMENT OF PATHOLOGY, [address] [place] [address] Alok Barrera M.D. Director [facility] # [id number] Procedures Date Code Description Status 07/14/2018 07073 Apply Unna Boot Completed 07/06/2018 59631 Apply Unna Boot Completed 05/12/2018 88372 Apply Unna Boot Completed 05/04/2018 04644 Apply Unna Boot Completed 08/06/2015 21138 Color Flow Doppler/Interp & Reprt Completed 08/06/2015 87173 Pulse Wave/Continuous-Interp.RPT Completed 08/06/2015 05169 Echocardiography, Transesophageal, Real Time W/Image 2D Completed W/W/O M-M 08/06/2015 51051 EKG, Interpretation Only Completed 08/06/2015 97676 Cardioversion Completed 02/21/2012 43852 Rad Exam; Ankle Comp Completed 01/17/2012 82367 Rad Exam; Ankle Comp Completed 01/05/2012 17527 Short Leg Cast Completed 12/24/2011 76537 Rad Exam; Ankle Comp Completed 12/24/2011 02105 Short Leg Cast Completed 12/07/2011 47301 ORIF Open TX Distal Fibular FX Incl Internal Fixation When Completed Perfom 12/07/2011 67563 ORIF Open TX Distal Fibular FX Incl Internal Fixation When Completed Perfom Encounters Type Date Location Provider Dx Diagnosis Office Visit 07/06/2018 9:10a [facility] Alistair Monet MD B35.3 Tinea pedis B35.1 Tinea unguium I89.0 Lymphedema, not elsewhere classified Office Visit 05/19/2018 [facility] Alistair Monet I89.0 Lymphedema, not 11:40a MD elsewhere classified [facility] L03.116 Cellulitis of 8:19a Assoc,pc N.P. 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 [facility]ulitis of 8:18a Assoc,pc WILMER Magallon left lower limb Hospitalists I48.91 Unspecified atrial fibrillation J44.9 Chronic obstructive pulmonary disease, unspecified Z79.4 jail (current) use of insulin E66.01 Morbid (severe) obesity due to excess calories E87.1 Hypo-osmolality and hyponatremia [facility] Cellulitis of 8:18a Assoc,harsha Magallon NP left lower limb Hospitalists I48.91 Unspecified atrial fibrillation J44.9 Chronic obstructive pulmonary disease, unspecified Z79.4 parts counterman (current) use of insulin E66.01 Morbid (severe) obesity due to excess calories E87.1 Hypo-osmolality and hyponatremia Office Visit 01/08/2018 8:13a [facility] Adalberto L03.116 Cellulitis of Assoc,pc MORA Baumann left lower limb Hospitalists I48.91 Unspecified atrial fibrillation Z79.4 jail (current) use of insulin J44.9 Chronic obstructive pulmonary disease, unspecified Office Visit 01/06/2018 8:10a [facility] Yanet Herndon L03.116 Cellulitis of Assoc,pc N.P. left lower limb Hospitalists E11.628 Type 2 diabetes mellitus with other skin complications E87.1 Hypo-osmolality and hyponatremia I10 Essential (primary) hypertension Office Visit 12/26/2017 8:02a [facility] Bharat L03.116 Cellulitis of Assoc,harsha Ko M.D. left lower limb Hospitalists E11.69 Type 2 diabetes mellitus with other specified complication I48.91 Unspecified atrial fibrillation J44.9 Chronic obstructive pulmonary disease, unspecified E66.01 Morbid (severe) obesity due to excess calories I10 Essential (primary) hypertension G47.33 Obstructive sleep apnea (adult) (pediatric) Z79.4 jail (current) use of insulin Office Visit 12/25/2017 8:02a [facility] Bharat L03.116 Cellulitis of Assharsha obrien M.D. 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 left lower limb Hospitalists E11.69 Type 2 diabetes mellitus with other specified complication E87.1 Hypo-osmolality and hyponatremia N18.9 Chronic kidney disease, unspecified E11.22 Type 2 diabetes mellitus w diabetic chronic kidney disease Z79.4 jail (current) use of insulin G47.33 Obstructive sleep apnea (adult) (pediatric) E66.01 Morbid (severe) obesity due to excess calories [facility] 9:09a harsha Montelongo NP hemorrhage, Hospitalists unspecified D62 Acute posthemorrhagic anemia I48.0 Paroxysmal atrial fibrillation E66.01 Morbid (severe) obesity due to excess calories [facility] 9:08a harsha Montelongo NP hemorrhage, Hospitalists unspecified D62 Acute posthemorrhagic anemia I48.0 Paroxysmal atrial fibrillation E66.01 Morbid (severe) obesity due to excess calories Office Visit 08/18/2015 [facility] Yanet Herndon K92.2 Gastrointestinal 9:08a harsha Montelongo N.P. hemorrhage, Hospitalists unspecified D62 Acute posthemorrhagic anemia I48.0 Paroxysmal atrial fibrillation E66.01 Morbid (severe) obesity due to excess calories Office Visit 08/17/2015 [facility] Yanet Herndon K92.2 Gastrointestinal 9:07a harsha Montelongo N.P. hemorrhage, Hospitalists unspecified D62 Acute posthemorrhagic anemia I48.0 Paroxysmal atrial fibrillation E66.01 Morbid (severe) obesity due to excess calories Office Visit 08/16/2015 [facility] Yanet Herndon, K92.2 Gastrointestinal 9:06a harsha Montelongo N.P. hemorrhage, Hospitalists unspecified D62 Acute posthemorrhagic anemia I48.0 Paroxysmal atrial fibrillation E66.01 Morbid (severe) obesity due to excess calories [facility] Unspecified atrial 12:31p harsha Montelongo D.O. fibrillation Hospitalists E11.9 Type 2 diabetes mellitus without complications E66.01 Morbid (severe) obesity due to excess calories J43.8 Other emphysema Office Visit [facility]/06[facility] I48.91 Unspecified atrial 12:31p Assharsha obrien D.O. fibrillation Hospitalists E11.9 Type 2 diabetes mellitus without complications E66.01 Morbid (severe) obesity due to excess calories J43.8 Other emphysema Office Visit 08/06/2015 1:27p Marcos Olivas I48.1 Persistent atrial Cardiology Of M.DRobbi fibrillation Medical Staff Manager Office Visit 08/05/2015 12:05p [place] Qutaaric S. I48.91 Unspecified atrial Cardiology reena Herring M.Jed I45.10 Unspecified right bundle-branch block Office Visit 08/05/2015 [facility] Julia I48.91 Unspecified atrial 12:30p Assocharsha, DO fibrillation Hospitalists E66.01 Morbid (severe) obesity due to excess calories E11.9 Type 2 diabetes mellitus without complications J43.8 Other emphysema Office Visit 11/29/2011 1:45p Orthopedic Bharat Laurent, 823.21 FX [facility] Fibula Closed Alone 824.8 FX Ankle Unspec Closed Plan of Treatment 07/19/2018 - Marion Morrow, MDM54.5 Low back painNew Therapy:Physical TherapyComments:The patient has had lumbar back pain for many years with intermittent pain extending down both legs. His symptoms have improved overall recently due to weight loss, and he currently feels that the majority of his pain is located across his lower back. His MRI shows degenerative disc disease and multilevel disc protrusion with mild to moderate foraminal narrowing. I recommended that he work with a physical therapist on strengthening of the core and hips. He should continue to be as active as tolerated with walking. He should continue to focus on weight loss. Facet or epidural injections could be considered in the future if his pain is persisting. He would like to be able to diminishhis Percocet use, so I will refer him to the pain management clinic. He is to follow-up with me as needed.Referral:Manas Duong MD, Physical Medicine/TquusW54.5 Low back painNew Therapy:Physical TherapyComments:The patient has had lumbar back pain for many years with intermittent pain extending down both legs. His symptoms have improved overall recently due to weight loss, and he currently feels that the majority of his pain is located across his lower back. His MRI shows degenerative disc disease and multilevel disc protrusion with mild to moderate foraminal narrowing. I recommended that he work with a physical therapist on strengthening of the core and hips. He should continue to be as active as tolerated with walking. He should continue to focus on weight loss. Facet or epidural injections could be considered in the future if his pain is persisting. He would like to be able to diminishhis Percocet use, so I will refer him to the pain management clinic. He is to follow-up with me as needed.Referral:Manas Duong MD, Physical Medicine/Rehab
[2018-07-30 10:05] VITALS: BP 117/86
--- NOTE | 2018-07-30 11:36 | UC ---
Respiratory Complaint HPI - HPI Summary HPI Summary: History of COPD, uses Symbicort and levalbuterol. At about 2 am had increased cough and shortness of breath, productive of yellow sputum. Could not find his nebulizer, did start prednisone which he had at home, taking doses at 2 am and 7 am. NO fever. Does have oxygen at home which he uses overnight along with CPAP. - History of Current Complaint Chief Complaint: UCRespiratory Stated Complaint: CONGESTION Time Seen by Provider: 07/30/18 11:25 Hx Obtained From: Patient Onset/Duration: Gradual Onset, Lasting Hours Timing: Constant Severity Initially: Moderate Severity Currently: Mild Pain Intensity: 0 Character: Cough: Productive - yellow sputum, no chest pain. Aggravating Factors: Deep Breaths, Recumbent Position Alleviating Factors: Upright Position, Other - feels some improvement with steroids. Associated Signs And Symptoms: Positive: Dyspnea, Nasal Congestion - Risk Factors Pulmonary Embolism Risk Factors: Negative Cardiac Risk Factors: Hypertension Tuberculosis Risk Factors: Negative - Allergies/Home Medications Allergies/Adverse Reactions: Allergies Allergy/AdvReac Type Severity Reaction Status Date / Time metformin Allergy Rash Verified 07/30/18 10:06 Home Medications: Home Medications predniSONE TAB* [Deltasone 20 MG TAB*] 20 mg PO DAILY 07/30/18 [History Confirmed 07/30/18] PMH/Surg Hx/FS Hx/Imm Hx Endocrine History: Diabetes - in past history, has lost 97 pounds and now off meds. Cardiovascular History: Atrial Fibrillation - in the past. Respiratory History: COPD Other History Of: Anticoagulant Therapy - Xeralto - Surgical History Surgical History: Yes Surgery Procedure, Year, and Place: EAR DRUM SURGERY [address] [place] [address] BOTH EARS - CLEARED WITH CT OF IAC BY DR SERRANO - CT OF LSP ALREADY DONE - SUSANNA Suarez RN/MRI. [place] [facility] [place] tongue biopsy and #30 tooth extraction - [place] Nov 2016 - Family History Known Family History: Positive: Diabetes, Other - both parents passed from cancer Family History: Denies FHx anesthesia reaction - Social History Occupation: Retired Lives: With Family Alcohol Use: Occasionally Alcohol Amount: 2-4 whiskey drinks week Substance Use Type: None Smoking Status (MU): Former Smoker Amount Used/How Often: 1 ppd for 40 yrs When Did the Patient Quit Smoking/Using Tobacco: 2008 - Immunization History Most Recent Influenza Vaccination: Oct 2017 Most Recent Tetanus Shot: 2012 Most Recent Pneumonia Vaccination: 2 years ago Review of Systems All Other Systems Reviewed And Are Negative: Yes Constitutional: Positive: Fatigue Eyes: Positive: Negative ENT: Positive: Nasal Discharge Respiratory: Positive: Shortness Of Breath, Cough Cardiovascular: Negative: Palpitations, Chest Pain Gastrointestinal: Positive: Negative Genitourinary: Positive: Negative Motor: Positive: Negative Neurovascular: Positive: Negative Musculoskeletal: Positive: Negative Neurological: Positive: Negative Psychological: Positive: Negative Physical Exam Triage Information Reviewed: Yes Appearance: Ill-Appearing - looks chronically unwell, Obese Vital Signs: Initial Vital Signs Temp 98.8 F 07/30/18 10:01 Pulse 98 07/30/18 10:01 Resp 22 07/30/18 10:01 BP 117/86 07/30/18 10:01 Pulse Ox 94 07/30/18 10:01 Eyes: Positive: Conjunctiva Clear ENT: Positive: Pharynx normal Neck: Positive: Supple, Nontender, No Lymphadenopathy Respiratory Exam: Other - Mildly tachypneic, oxygen saturation is ok. No wheeze or prolonged expiration Respiratory: Positive: Decreased breath sounds Cardiovascular: Positive: RRR, No Murmur Musculoskeletal Exam: Normal Neurological: Positive: Alert, Muscle Tone Normal Skin Exam: Normal Respiratory Course/Dx - Course Course Of Treatment: addition of prednisone and antibiotic, will use levalbuterol (declined nebulizer here). - Differential Dx/Diagnosis Differential Diagnosis/HQI/PQRI: Asthma, Bronchitis, CHF, Lower Resp Infection Provider Diagnosis: COPD exacerbation Discharge - Sign-Out/Discharge Documenting (check all that apply): Patient Departure All imaging exams completed and their final reports reviewed: No Studies - Discharge Plan Condition: Stable Disposition: HOME Prescriptions: Amoxicillin PO (*) [Amoxicillin 875 MG (*)] 875 mg PO BID #20 tab Levalbuterol 0.63MG/3ML NEB* [Xopenex 0.63MG/3ML NEB*] 0.63 mg INH RT.Q4HR- WHILE AWAKE #48 neb.soln predniSONE TAB* [Deltasone 20 MG TAB*] 2 tab PO DAILY #10 tab Patient Education Materials: COPD (Chronic Obstructive Pulmonary Disease) (ED) Referrals: Salazar Childress MD [Primary Care Provider] - Additional Instructions: Because of the increase in yellow sputum, begin course of amoxicillin. Use levalbuterol regularly for the next several days in addition to your Symbicort. Use prednisone 40mg daily for 5 days. Follow up with Dr. Childress if you are not showing signs of improvement; if you have increasing problems with shortness of breath or wheeze, please go to the emergency room. - Billing Disposition and Condition Condition: STABLE Disposition: Home
== END 2018-07-30 12:00 | disposition home or self-care (01) ==
LOC: UCEAST 09:45
DX: J44.1 Chronic obstructive pulmonary disease with (acute) exacerbation (principal); I10 Essential (primary) hypertension; Z87.891 Personal history of nicotine dependence
CPT/HCPCS: 99212; G0463

== ENCOUNTER 2018-11-03 13:33 | Emergency (ER) | payer MEDICARE, MEDICAID ==
[2018-11-03 14:48] VITALS: BP 174/88
--- NOTE | 2018-11-03 16:19 | UC ---
Lower Extremity/Ankle HPI - HPI Summary HPI Summary: 63-year-old male comes in with a chief complaint of drainage from the left lower leg. It's a serous drainage. He's had this before and he says he believes is beginning of cellulitis. No fevers no chills. No complaint of any chest pain or shortness of breath. He does wear compression stockings and has chronic edema. - History of Current Complaint Chief Complaint: UCLowerExtremity Stated Complaint: L LEG PAIN Time Seen by Provider: 11/03/18 16:03 Pain Intensity: 0 - Allergies/Home Medications Allergies/Adverse Reactions: Allergies Allergy/AdvReac Type Severity Reaction Status Date / Time metformin Allergy Rash Verified 11/03/18 14:48 PMH/Surg Hx/FS Hx/Imm Hx Previously Healthy: Yes - sleep apnea Endocrine History: Diabetes, Dyslipidemia Cardiovascular History: Hypertension, Atrial Fibrillation Respiratory History: COPD Other History Of: Anticoagulant Therapy - Xeralto - Surgical History Surgical History: Yes Surgery Procedure, Year, and Place: EAR DRUM SURGERY [address] [place] [address] BOTH EARS - CLEARED WITH CT OF IAC BY DR SERRANO - CT OF LSP ALREADY DONE - SUSANNA Suarez RN/MRI. [place] [facility] [place] ( W/ PLATE). tongue biopsy and #30 tooth extraction - [place] Nov 2016 - Family History Known Family History: Positive: Diabetes, Other - both parents passed from cancer Family History: Denies FHx anesthesia reaction - Social History Alcohol Use: Daily Alcohol Amount: 6 Substance Use Type: Marijuana Substance Use Comment - Amount & Last Used: medical marijuana Smoking Status (MU): Former Smoker Amount Used/How Often: 1 ppd for 40 yrs When Did the Patient Quit Smoking/Using Tobacco: 2008 - Immunization History Most Recent Influenza Vaccination: Oct 2017 Most Recent Tetanus Shot: 2012 Most Recent Pneumonia Vaccination: 2 years ago Review of Systems All Other Systems Reviewed And Are Negative: Yes Constitutional: Positive: Negative Skin: Positive: Other - see hpi Eyes: Positive: Negative ENT: Positive: Negative Respiratory: Positive: Negative Cardiovascular: Positive: Negative Gastrointestinal: Positive: Negative Motor: Positive: Negative Neurovascular: Positive: Negative Musculoskeletal: Positive: Edema. Negative: Calf Tenderness Neurological: Positive: Negative Psychological: Positive: Negative Is Patient Immunocompromised?: No Physical Exam Triage Information Reviewed: Yes Appearance: Well-Appearing, No Pain Distress, Well-Nourished Vital Signs: Initial Vital Signs Temp 96.1 F 11/03/18 14:44 Pulse 75 11/03/18 14:44 Resp 18 11/03/18 14:44 BP 174/88 11/03/18 14:44 Pulse Ox 99 11/03/18 14:44 Vital Signs Reviewed: Yes Eye Exam: Normal Eyes: Positive: Conjunctiva Clear Neck: Positive: Supple Respiratory: Positive: Lungs clear, Normal breath sounds, No respiratory distress Cardiovascular: Positive: RRR Musculoskeletal: Positive: Strength Intact, ROM Intact, Edema @ - Chronic bilateral pedal edema. No calf tenderness. Neurological: Positive: Alert, Muscle Tone Normal Psychological: Positive: Age Appropriate Behavior Skin: Positive: Other - On the left lower leg anterior aspect of the rodriguez patient has serous drainage from an erythematous area. There is no streaking. No foul odor. Lower Extremity Course/Dx - Course Course Of Treatment: A culture and sensitivity was taken from the site. In 2018 patient was admitted with lower extremity cellulitis and sepsis. He was treated in the hospital with IV antibiotics and when he was discharged home he was treated with accommodation Bactrim and Keflex which is what I am going to start him on today. The edema with the fluid leakage could also be from congestive heart failure however the patient does not have any complaint of shortness of breath or chest pain today. CBC CMP and BNP have all been drawn and are pending. We discussed that if the patient had a fever or felt worse had any shortness of breath or chest pain he needs to go directly to the emergency department. - Differential Dx/Diagnosis Provider Diagnosis: Edema Discharge ED - Sign-Out/Discharge Documenting (check all that apply): Patient Departure All imaging exams completed and their final reports reviewed: No Studies - Discharge Plan Condition: Stable Disposition: HOME Prescriptions: Cephalexin CAP* [Keflex CAP*] 500 mg PO TID #30 cap Sulfamethox/Trimethoprim DS* [Bactrim DS 800/160 TAB*] 1 tab PO BID #20 tab Patient Education Materials: Leg Edema (ED), Cellulitis (ED) Referrals: Salazar Childress MD [Primary Care Provider] - Additional Instructions: FOLLOW UP WITH YOUR DOCTOR. GO TO THE EMERGENCY DEPARTMENT IF YOUR CONDITION DOES NOT IMPROVE OR WORSENS; FEVER, YOU FEEL ILL, SHORTNESS OF BREATH OR ANY QUESTIONS OR CONCERNS. - Billing Disposition and Condition Condition: STABLE Disposition: Home
[2018-11-03 19:23] LABS: ABS Eosinophils 0.3 10^3/ul (0-0.6); ABS Lymphocytes 1.1 10^3/ul (1.0-4.8); ABS Monocytes 0.6 10^3/ul (0-0.8); ABS Neutrophils 5.2 10^3/ul (1.5-7.7); Eosinophil % 4.7 %; Hematocrit 40 % (42-52); Hemoglobin 13.3 g/dL (14.0-18.0); Mean Corpuscular HGB Conc 33 g/dL (31-36); Mean Corpuscular Hemoglobin 28 pg (27-31); Mean Corpuscular Volume 84 fL (80-94); Mean Platelet Volume 8.8 fL (7.4-10.4); Platelet Count 268 10^3/uL (150-450); Red Blood Count 4.76 10^6 /uL (4.18-5.48); Red Cell Distribution Width 19 % (10-15); White Blood Count 7.3 10^3/uL (3.5-10.8)
[2018-11-03 19:28] LABS: Albumin 4.1 g/dL (3.2-5.2); Calcium 9.1 mg/dL (8.6-10.3); Total Bilirubin 0.5 mg/dL (0.2-1.0)
[2018-11-03 19:34] LABS: Albumin/Globulin Ratio 1.4 (1-3); BUN/Creatinine Ratio 12.6 (8-20); EGFR African American 107.6 (>60); EGFR Non-African American 88.9 (>60); Globulin 2.9 g/dL (2-4)
--- NOTE | 2018-11-04 07:26 | UC ---
- Progress Note Progress Note: Was sen and treated for cellulitis and started on 2 different antibiotics. Culture still pending. Blood count shows a mild anemia, but his blood count has improved since his last one earlier this summer. His white count is not elevated, platelets normal Chemistries normal including electrolytes, kidney and liver functions. Check to see if improving on antibiotics. Course/Dx - Diagnoses Provider Diagnoses: Edema Discharge ED - Sign-Out/Discharge Documenting (check all that apply): Patient Departure All imaging exams completed and their final reports reviewed: No Studies - Discharge Plan Condition: Stable Disposition: HOME Prescriptions: Cephalexin CAP* [Keflex CAP*] 500 mg PO TID #30 cap Sulfamethox/Trimethoprim DS* [Bactrim DS 800/160 TAB*] 1 tab PO BID #20 tab Patient Education Materials: Cellulitis (ED), Leg Edema (ED) Referrals: Salazar Childress MD [Primary Care Provider] - Additional Instructions: FOLLOW UP WITH YOUR DOCTOR. GO TO THE EMERGENCY DEPARTMENT IF YOUR CONDITION DOES NOT IMPROVE OR WORSENS; FEVER, YOU FEEL ILL, SHORTNESS OF BREATH OR ANY QUESTIONS OR CONCERNS. - Billing Disposition and Condition Condition: STABLE Disposition: Home
== END 2018-11-03 16:48 | disposition home or self-care (01) ==
LOC: UCEAST 13:33
DX: R60.9 Edema, unspecified (principal); E78.5 Hyperlipidemia, unspecified; E11.9 Type 2 diabetes mellitus without complications; I10 Essential (primary) hypertension; I48.91 Unspecified atrial fibrillation; J44.9 Chronic obstructive pulmonary disease, unspecified; Z79.01 Long term (current) use of anticoagulants; Z87.891 Personal history of nicotine dependence
CPT/HCPCS: 36415; 80053; 83880; 85025; 87070; 87205; 99212; G0463

== ENCOUNTER 2018-11-18 13:18 | Emergency (ER) | payer MEDICARE, MEDICAID ==
--- NOTE | 2018-11-18 13:32 | ED ---
Back Pain - HPI Summary HPI Summary: This pt is a 63 y/o male presenting [place] [facility] [place]/o acute on chronic back pain today. Pt reports he had an MRI about 3 months ago that showed bulging disc. He states he goes to pain management and has been prescribed pain medications and medical marijuana. He notes this morning he woke up with pain on his lower back. Denies numbness, tingling, weakness in LE, urinary or bowel incontinence. Pt reports he took his last pain medication this morning and is hoping to get a refill as he is "10 days shy of his pain medications." - History of Current Complaint Stated Complaint: BACK PAIN PER PT Time Seen by Provider: 11/18/18 13:24 Hx Obtained From: Patient Onset/Duration: Still Present Onset/Duration: Started Weeks Ago Timing: Lasting Weeks Back Pain Location: Is Discrete @ - lower back Severity Currently: Moderate Pain Intensity: 7 Pain Scale Used: 0-10 Numeric Aggravating Symptom(s): Nothing Alleviating Symptom(s): Nothing Associated Signs And Symptoms: Negative: Weakness, Numbness, Tingling, Bladder Incontinence, Bowel Incontinence - Allergies/Home Medications Allergies/Adverse Reactions: Allergies Allergy/AdvReac Type Severity Reaction Status Date / Time metformin Allergy Rash Verified 11/18/18 13:27 PMH/Surg Hx/FS Hx/Imm Hx Endocrine/Hematology History: Reports: Hx Anticoagulant Therapy - Xeralto, Hx Thyroid Disease - hypothyroid, reports no longer on meds Denies: Hx Diabetes - used to be type 2 Cardiovascular History: Reports: Hx Atrial Fibrillation, Hx Congestive Heart Failure, Hx Hypercholesterolemia, Hx Hypertension - MEDICATED, Other Cardiovascular Problems/Disorders - hyperlipidemia, a-fib Denies: Hx Pacemaker/ICD Respiratory History: Reports: Hx Asthma, Hx Chronic Obstructive Pulmonary Disease (COPD), Hx Pneumonia, Hx Sleep Apnea, Other Respiratory Problems/ Disorders - copd GI History: Reports: Hx Gastroesophageal Reflux Disease, Hx Gastrointestinal Bleed - Admitted with GI bleed, Other GI Disorders - gi bleed 2016 [place] [facility] [place] History: Reports: Hx Kidney Stones - x3 -reports passed on their own Denies: Hx Dialysis, Hx Renal Disease, Other Problems/Disorders - DENIES Musculoskeletal History: Reports: Hx Back Problems Sensory History: Reports: Hx Contacts or Glasses - did not bring to hospital Denies: Hx Hearing Aid Opthamlomology History: Reports: Hx Contacts or Glasses - did not bring to hospital Psychiatric History: Reports: Hx Anxiety Denies: Hx Panic Disorder - Surgical History Surgery Procedure, Year, and Place: EAR DRUM SURGERY 1963 [place] BOTH EARS - CLEARED WITH CT OF IAC BY DR SERRANO - CT OF LSP ALREADY DONE - SUSANNA Suarez RN/MRI. [place] [facility] [place]). tongue biopsy and #30 tooth extraction - [place] Nov 2016 Hx Anesthesia Reactions: No - Immunization History Date of Tetanus Vaccine: UTD Date of Influenza Vaccine: UTD Infectious Disease History: No Infectious Disease History: Denies: Hx of Known/Suspected MRSA, Traveled Outside the [place] in Last 30 Days - Family History Known Family History: Positive: Diabetes, Other - both parents passed from cancer Family History: Denies FHx anesthesia reaction - Social History Alcohol Use: Daily Alcohol Amount: 6 Hx Substance Use: No Substance Use Type: Reports: Marijuana Substance Use Comment - Amount & Last Used: medical marijuana Hx Tobacco Use: Yes Smoking Status (MU): Former Smoker Amount Used/How Often: 1 ppd for 40 yrs Review of Systems Negative: Fever, Chills Cardiovascular: Negative Respiratory: Negative Negative: incontinence Musculoskeletal: Other - POSITIVE: back pain Negative: Weakness, Paresthesia, Numbness All Other Systems Reviewed And Are Negative: Yes Physical Exam - Summary Physical Exam Summary: Appearance: The patient is well-nourished in no acute distress and in no acute pain. Skin: The skin is warm and dry, and skin color reflects adequate perfusion. HEENT: The head is normocephalic and atraumatic. The pupils are equal and reactive. The conjunctivae are clear and without drainage. Nares are patent and without drainage. Mouth reveals moist mucous membranes, and the throat is without erythema and exudate. The external ears are intact. The ear canals are patent and without drainage. The tympanic membranes are intact. Neck: The neck is supple with full range of motion and non-tender. There are no carotid bruits. There is no neck vein distension. Respiratory: Chest is non-tender. Lungs are clear to auscultation and breath sounds are symmetrical and equal. Cardiovascular: Heart is regular rate and rhythm. There is no murmur or rub auscultated. There is no peripheral edema and pulses are symmetrical and equal. Abdomen: The abdomen is soft and non-tender. There are normal bowel sounds heard in all four quadrants and there is no organomegaly palpated. Musculoskeletal: There is no back tenderness noted. Extremities are non-tender with full range of motion. There is good capillary refill. There is no peripheral edema or calf tenderness elicited. Neurological: Patient is alert and oriented to person, place and time. The patient has symmetrical motor strength in all four extremities. Cranial nerves are grossly intact. Deep tendon reflexes are symmetrical and equal in all four extremities. Psychiatric: The patient has an appropriate affect and does not exhibit any anxiety or depression. Triage Information Reviewed: Yes Vital Signs On Initial Exam: Initial Vitals Temp Pulse Resp BP Pulse Ox 97.5 F 73 16 123/78 97 11/18/18 13:24 11/18/18 13:24 11/18/18 13:24 11/18/18 13:24 11/18/18 13:24 Vital Signs Reviewed: Yes Diagnostics - Vital Signs Vital Signs Temp Pulse Resp BP Pulse Ox 11/18/18 13:24 97.5 F 73 16 123/78 97 - Laboratory Lab Statement: Any lab studies that have been ordered have been reviewed, and results considered in the medical decision making process. Back Pain Course/Dx - Course Course Of Treatment: Mr. Porter tells me is calm short notice pain medications because they were stolen. When I stop he was prescribed 30 days of Percocet tens on October 21. This makes him a couple days early. I will prescribe 5 days for him and recommended he follow up with the pain clinic. - Diagnoses Provider Diagnoses: Chronic back pain Discharge ED - Sign-Out/Discharge Documenting (check all that apply): Patient Departure - Discharge home Patient Received Moderate/Deep Sedation with Procedure: No - Discharge Plan Condition: Stable Disposition: HOME Prescriptions: oxyCODONE/Acetamin 10/325(NF) [Percocet 10/325 (NF)] 1 tab PO BID PRN #10 tab MDD 2 PRN Reason: Pain - Severe Patient Education Materials: Chronic Back Pain (DC) Referrals: Salazar Childress MD [Primary Care Provider] - Additional Instructions: Follow up with your primary care provider in 2-3 days. RETURN TO THE ED FOR ANY WORSENING OR NEW SYMPTOMS. - Billing Disposition and Condition Condition: STABLE Disposition: Home - Attestation Statements Document Initiated by Scribe: Yes Documenting Scribe: Anuja Kimbrough Provider For Whom Scribe is Documenting (Include Credential): Bruno Ospina MD Scribe Attestation: I, Anuja Kimbrough, scribed for Bruno Ospina MD on 11/18/18 at 1432. Scribe Documentation Reviewed: Yes Provider Attestation: The documentation as recorded by the scribe, Anuja Kimbrough accurately reflects the service I personally performed and the decisions made by me, Bruno Ospina MD Status of Scribe Document: Viewed
[2018-11-18 14:00] VITALS: BP 140/81
== END 2018-11-18 13:55 | disposition home or self-care (01) ==
LOC: ED 13:18
DX: M54.9 Dorsalgia, unspecified (principal); G89.29 Other chronic pain; Z87.891 Personal history of nicotine dependence; Z79.01 Long term (current) use of anticoagulants; E03.9 Hypothyroidism, unspecified; I48.91 Unspecified atrial fibrillation; I50.9 Heart failure, unspecified; I10 Essential (primary) hypertension; E78.00 Pure hypercholesterolemia, unspecified; K21.9 Gastro-esophageal reflux disease without esophagitis; Z87.442 Personal history of urinary calculi; Z79.82 Long term (current) use of aspirin; Z79.899 Other long term (current) drug therapy
CPT/HCPCS: 99282

== ENCOUNTER 2019-03-24 09:19 | Emergency (ER) | payer MEDICARE, MEDICAID ==
--- OUTSIDE RECORDS SUMMARY | 2019-03-24 10:02 | XMS REPORT | Continuity of Care Document ---
:1955 External Reference #:[id number] Author Name Miesha Chou MD (transmitted by agent of provider Sindhu Suarez) Address [address] [place] [address] Care Team Providers Name Role Phone Salazar Childress MD - Internal Care Team Information Dean Of Men [phone] Medicine Problems Active Problems Provider Date Cellulitis of left lower limb Bharat Ko M.D. Onset: 12/25/2017 Hypo-osmolality and or hyponatremia Bharat Ko M.D. Onset: 12/25/2017 Chronic kidney disease Bharat Ko M.D. Onset: 12/25/2017 Long-term current use of insulin Bharat Ko M.D. Onset: 12/25/2017 Atrial fibrillation Bharat Ko M.D. Onset: 12/26/2017 Chronic obstructive lung disease Bharat Ko M.D. Onset: 12/26/2017 Morbid obesity Bharat Ko M.D. Onset: 12/26/2017 Essential hypertension Bharat Ko M.D. Onset: 12/26/2017 Obstructive sleep apnea syndrome Bharat Ko M.D. Onset: 12/26/2017 Diabetic dermopathy associated with diabetes Yanet Herndon N.P. Onset: 2017 mellitus type 2 Disorder of posterior pituitary Yanet Herndon N.P. Onset: 01/11/2018 Asthma Onset: 03/31/2015 Atrial fibrillation with rapid ventricular Onset: 08/25/2015 response Cellulitis of lower limb Onset: 01/01/2018 Chronic obstructive lung disease Onset: 02/25/2015 Chronic renal failure Onset: 03/31/2015 Cobalamin deficiency Onset: 03/31/2015 Congestive heart failure Onset: 03/31/2015 Diabetic neuropathy Onset: 05/28/2016 Dry skin Onset: 05/28/2016 Edema of lower extremity Onset: 05/28/2016 Ex-smoker Onset: 02/26/2015 For resuscitation Onset: 08/25/2015 Gastroesophageal reflux disease Onset: 05/28/2016 H/O: anticoagulant therapy Onset: 08/25/2015 Hyperlipidemia Onset: 02/26/2015 Hypertensive disorder Onset: 08/25/2015 Hypothyroidism Onset: 02/26/2015 Iron deficiency anemia Onset: 03/31/2015 Morbid obesity Onset: 02/26/2015 Mycosis Onset: 05/28/2016 Obstructive sleep apnea syndrome Onset: 08/25/2015 Osteoarthritis Onset: 03/31/2015 Sleep apnea Onset: 02/26/2015 Spinal stenosis of lumbar region Onset: 06/16/2018 Type 2 diabetes mellitus Onset: 02/25/2015 Upper gastrointestinal bleeding Onset: 08/25/2015 Vitamin D deficiency Onset: 03/31/2015 Social History Type Date Description Comments Sex Unknown Tobacco Use Start: Unknown End: Patient is a former smoker Smoking Status Reviewed: 03/05/19 Patient is a former smoker Allergies, Adverse Reactions, Alerts Active Allergies Reaction Severity Comments Date Metformin rash Severe 07/19/2018 Xarelto gi bleed 07/19/2018 Medications Active Medications SIG Qnty Indications Ordering Date Provider Percocet Take 1 tablet every Unknown 06/16/2018 10-325mg Tablets 6 hours by oral route for 30 days. Albuterol Sulfate inhale 3 ml; via Unknown 06/01/2018 nebulizer tid (2.5mg/3ML) 0.083% Nebulizer Vitamin D3 Super Take One Capsule By Unknown 01/17/2018 Strength Mouth Every Day 2000Unit Capsules [facility] B-12 Take 1000 Unknown 03/04/2017 500mcg Tablets microgram(s) every day by oral route for 90 days. Vitamin D2 Take 1 tablet every Unknown 03/04/2017 2000Unit day by oral route Tablets for 90 days. Famotidine 20 mg by oral Unknown 03/07/2016 20mg Tablets route. Vitamin B-12 Take 1 tablet every Unknown 03/31/2015 1000mcg day by oral route Tablets as directed for 90 days. Percocet 1-2 tabs po q4-6 60tabs Bharat Laurent, 11/29/2011 5-325mg Tablets prn pain M.DRobbi Red Inject 0.5 mL every Unknown 1.5mg/0.5ML week by Solution Pen-Inject subcutaneous route for 90 days. Dulera Inhale 2 puffs Unknown 200-5mcg/Act twice a day by Aerosol inhalation route for 90 days. Multaq Take One Tablet By Unknown 400mg Tablets Mouth Twice A Day Proair HFA Inhale Two Puffs By Unknown 108(90Base) Mouth Four Times A mcg/Act Aerosol Day Metoprolol Tartrate Take One Tablet By Unknown 25mg Mouth Twice A Day Tablets Alcohol Prep Pads Use as directed Unknown 70% Pads Cyclobenzaprine HCL Take 1 tablet 3 Unknown 5mg times a day by oral Tablets route for 10 days. Lorazepam take 1 tablet 1 Unknown 1mg Tablets hour before procedure and can take a second 1/2 hour before procedure Furosemide Take 1 tablet every Unknown 20mg Tablets day by oral route for 90 days. Simvastatin Take One Tablet By Unknown 40mg Tablets Mouth AT Bedtime Potassium Chloride ER Take 1 tablet every Unknown day by oral route 10Meq Tablets ER for 90 days. Levalbuterol HCL Inhale 0.63 mL Unknown twice a day by 0.63mg/3ML Nebulizer inhalation route for 90 days. Lisinopril-Hydrochloro Take One Tablet By Unknown thiazide Mouth Every Day 20-12.5mg Tablets Immunizations Description No Information Available Vital Signs Date Vital Result Comment 03/05/2019 10:55am Height 70 inches 5'10" Weight 331.00 lb Heart Rate 85 /min BP Systolic Sitting 124 mmHg left arm large cuff BP Diastolic Sitting 69 mmHg left arm large cuff O2 % BldC Oximetry 97 % room air BMI (Body Mass Index) 47.5 kg/m2 02/05/2019 10:44am Height 70 inches 5'10" Weight 375.00 lb Heart Rate 81 /min BP Systolic Sitting 125 mmHg Right arm large cuff BP Diastolic Sitting 77 mmHg Right arm large cuff O2 % BldC Oximetry 96 % room air BMI (Body Mass Index) 53.8 kg/m2 Results Test Acquired Date Facility Test Result H/L Range Note Basic Metabolic 02/26/2019 [facility] Sodium 134 mmol/L Low 135-145 [address] [place] [address] [phone] Potassium 4.8 mmol/L Normal 3.5-5.0 Chloride 101 mmol/L Normal 101-111 Co2 Carbon Dioxide 28 mmol/L Normal 22-32 Anion Gap 5 mmol/L Normal 2-11 Glucose 124 mg/dL High 70-100 Blood Urea Nitrogen 29 mg/dL High 6-24 Creatinine 1.24 mg/dL High 0.67-1.17 BUN/Creatinine Ratio 23.4 High 8-20 Calcium 8.9 mg/dL Normal 8.6-10.3 Egfr Non- 59.1 >60 Egfr 71.5 >60 1 Protein 02/26/2019 [facility] Total 6.5 g/dL 6.3 - Electrophoresis 101 Protein(Pep) 7.9 [place] [address] [phone] Albumin 3.2 g/dL Abnormal 3.4-4.7 Alpha-1 Globulin 0.2 g/dL 0.1-0.3 Alpha-2 Globulin 1.1 g/dL Abnormal 0.6-1.0 Beta Globulin 0.9 g/dL 0.7-1.2 Gamma Globulin 1.2 g/dL 0.6-1.6 Albumin/Globulin Ratio 0.98 Impression See Comment 2 [place]/Lambda Free 02/26/2019 [facility] [place] Free 3.75 mg/dL Abnormal 3 Light Chains Ser [address] [place] [address] [phone] Lambda Free Light Chain 2.33 mg/dL 4 [place]/Lambda Free Light Chain 1.61 5 Laboratory test 02/26/2019 [facility] Complement C3 112 mg/dL 75 - [address] [place] [address] [phone] Complement C4 13 mg/dL Abnormal 14 - 40 7 Neutrophil Cytoplasmic 02/26/2019 [facility] C-Anca Negative Negative AB [address] [place] [address] [phone] P-Anca Positive Abnormal Negative 8 Total Protein 02/26/2019 [facility] Urine TP Concentration 6 mg/ dL 24HR Urine [address] [place] [address] [phone] Urine Total Protein/24HR 216 mg/24Hr High 0-165 Creatinine 24HR 02/26/2019 [facility] Urine Collection 24 hr Urine [address] [place] [address] [phone] Urine Total Volume 3600 mL Urine Creatinine Concentration 42.18 mg/dL Urine Creatinine/24 Hour 1518.48 mg/24Hr Normal 600-1800 1 Because ethnic data is not always readily [...] 15-29 5 Kidney failure <15 (or dialysis) 2 RESULT: No apparent monoclonal protein on serum electrophoresis. Test Performed by: [facility] [place] [address] Tool Drawing Checker: Adalberto Caban M.D. Ph.D.; [facility]# [id number] 3 REFERENCE VALUE 0.3300-1.94 4 REFERENCE VALUE 0.5700-2.63 5 REFERENCE VALUE 0.2600-1.65 Test Performed by: [place] [address] Tool Drawing Checker: Adalberto Caban M.D. Ph.D.; CLIA# [id number] 6 Test Performed by: [place] [address] Tool Drawing Checker: Adalberto Caban M.D. Ph.D.; CLIA# [id number] 7 Test Performed by: [place] [address] Tool Drawing Checker: Adalberto Caban M.D. Ph.D.; CLIA# [id number] 8 Positive for pANCA pattern by immunofluorescence. Suggest further testing for anti-myeloperoxidase (anti-MPO) antibodies, if clinically indicated. ADDITIONAL INFORMATION This test was developed and its performance characteristics determined by [facility] in a manner consistent with CLIA requirements. This test has not been cleared or approved by the U.S. Food and Drug Administration. Test Performed by: [place] [address] Tool Drawing Checker: Adalberto Caban M.D. Ph.D.; CLIA# [id number] Procedures Description No Information Available Medical Devices Description No Information Available Encounters Type Date Location Provider Dx Diagnosis Office Visit 02/05/2019 [facility] Nephrology Miesha Chou MD E11.21 Type 2 diabetes 10:30a mellitus with diabetic nephropathy R80.9 Proteinuria, unspecified I10 Essential (primary) hypertension E66.01 Morbid (severe) obesity due to excess calories I12.9 Hypertensive chronic kidney disease w stg 1-4/unsp chr kdny Assessments Date Code Description Provider 03/05/2019 N18.2 Chronic kidney disease, stage 2 (mild) Miesha Chou MD 03/05/2019 I12.9 Hypertensive chronic kidney disease with stage 1 Miesha Chou MD through stage 4 chronic kidney disease, or unspecified chronic kidney disease 02/05/2019 E11.21 Type 2 diabetes mellitus with diabetic nephropathy Miesha Chou MD 02/05/2019 R80.9 Proteinuria, unspecified Miesha Chou MD 02/05/2019 I10 Essential (primary) hypertension Miesha Chou MD 02/05/2019 E66.01 Morbid (severe) obesity due to excess calories Miesha Chou MD 02/05/2019 I12.9 Hypertensive chronic kidney disease with stage 1 Miesha Chou MD through stage 4 chronic kidney disease, or unspecified chronic kidney disease Plan of Treatment Future Appointment(s):09/03/2019 11:30 am - Miesha Chou MD at [facility] [id number] /13/2020 - Miesha Chou MDN18.2 Chronic kidney disease, stage 2 (mild)Follow up :6 OALHEPB58.9 Hypertensive chronic kidney disease with stage 1 through stage 4 chronic kidney disease, or unspecified chronic kidney disease Functional Status Description No Information Available Mental Status Description No Information Available Referrals Description No Information Available
--- OUTSIDE RECORDS SUMMARY | 2019-03-24 10:02 | XMS REPORT | Continuity of Care Document ---
:1955 External Reference #:[id number] Author Name Alistair Monet MD (transmitted by agent of provider Marisa Infante) Address [address], [place] [address] Care Team Providers Name Role Phone Salazar Childress MD - Internal Care Team Information Teacher Associate [phone] Medicine Problems Active Problems Provider Date Cellulitis [...] Result H/L Range Note Basic Metabolic 02/26/2019 [facility] Sodium 134 mmol/L Low 135-145 Panel [address] [place] [address] [phone] Potassium 4.8 mmol/L Normal 3.5-5.0 Chloride 101 mmol/L Normal 101-111 Co2 Carbon Dioxide 28 mmol/L Normal 22-32 Anion Gap 5 mmol/L Normal 2-11 Glucose 124 mg/dL High 70-100 Blood Urea Nitrogen 29 mg/dL High 6-24 Creatinine 1.24 mg/dL High 0.67-1.17 BUN/Creatinine Ratio 23.4 High 8-20 Calcium 8.9 mg/dL Normal 8.6-10.3 Egfr Non- 59.1 >60 Egfr 71.5 >60 1 Protein 02/26/2019 [facility] Total 6.5 g/dL 6.3 - Electrophoresis 101 Protein(Pep) 7.9 [place] [address] [phone] Albumin 3.2 g/dL Abnormal 3.4-4.7 Alpha-1 Globulin 0.2 g/dL 0.1-0.3 Alpha-2 Globulin 1.1 g/dL Abnormal 0.6-1.0 Beta Globulin 0.9 g/dL 0.7-1.2 Gamma Globulin 1.2 g/dL 0.6-1.6 Albumin/Globulin Ratio 0.98 Impression See Comment 2 [place]/Lambda Free 02/26/2019 [facility] [place] Free 3.75 mg/dL Abnormal 3 Light Chains Ser [address] [place] [address] [phone] Lambda Free Light Chain 2.33 mg/dL 4 [place]/Lambda Free Light Chain 1.61 5 Laboratory test 02/26/2019 [facility] Complement C3 112 mg/dL 75 - [address] [place] [address] [phone] Complement C4 13 mg/dL Abnormal 14 - 40 7 Neutrophil Cytoplasmic 02/26/2019 [facility] C-Anca Negative Negative AB [address] [place] [address] [phone] P-Anca Positive Abnormal Negative 8 Total Protein 02/26/2019 [facility] Urine TP Concentration 6 mg/ dL 24HR Urine [address] [place] [address] [phone] Urine Total Protein/24HR 216 mg/24Hr High 0-165 Creatinine 24HR 02/26/2019 [facility] Urine Collection 24 hr Urine [address] [place] [address] [phone] Urine Total Volume 3600 mL Urine Creatinine [...] protein on serum electrophoresis. Test Performed by: [facility] [place] [address] Pin Inserter: Adalberto Caban M.D. Ph.D.; [facility]# [id number] 3 REFERENCE VALUE 0.3300-1.94 4 REFERENCE VALUE 0.5700-2.63 5 REFERENCE VALUE 0.2600-1.65 Test Performed by: [place] [address] Pin Inserter: Adalberto Caban M.D. Ph.D.; CLIA# [id number] 6 Test Performed by: [place] [address] Pin Inserter: Adalberto Caban M.D. Ph.D.; CLIA# [id number] 7 Test Performed by: [place] [address] Pin Inserter: Adalberto Caban M.D. Ph.D.; CLIA# [id number] 8 Positive for pANCA pattern by immunofluorescence. Suggest further testing for anti-myeloperoxidase (anti-MPO) antibodies, if clinically indicated. ADDITIONAL INFORMATION This test was developed and its performance characteristics determined by [facility] in a manner consistent with CLIA requirements. This test has not been cleared or approved by the U.S. Food and Drug Administration. Test Performed by: [place] [address] Pin Inserter: Adalberto Caban M.D. Ph.D.; CLIA# [id number] Procedures Description No Information Available Medical Devices Description No Information Available Encounters Type Date Location Provider Dx Diagnosis Office Visit 03/05/2019 [facility] Nephrology Miesha Chuo MD I12.9 Hypertensive [facility] 11[facility] N18.2 Chronic kidney disease, stage 2 (mild) Office Visit 02/05/2019 10:30a [facility] Nephrology Miesha Chou, E11.21 Type 2 diabetes MD mellitus with diabetic nephropathy R80.9 Proteinuria, unspecified I10 Essential (primary) hypertension E66.01 Morbid (severe) obesity due to excess calories I12.9 Hypertensive chronic kidney disease w stg 1-4/[facility] chr kdny Assessments Date Code Description Provider 03/05/2019 I12.9 Hypertensive chronic kidney disease with stage 1 Miesha Chou MD through stage 4 chronic kidney disease, or unspecified chronic kidney disease 03/05/2019 N18.2 Chronic kidney disease, stage 2 (mild) Miesha Chou MD 02/05/2019 E11.21 Type 2 diabetes mellitus with [...] 11:30 am - Miesha Chou MD at [facility] [id number] /13/2020 - Miesha Chou MDI12.9 Hypertensive chronic kidney disease with stage 1 through stage 4 chronic kidney disease, or unspecified chronic kidney diseaseComments:- Blood pressure stable, no changes.N18.2 Chronic kidney disease , stage 2 (mild)Comments:- Kidney function is stable and actually pretty good. There has been no worsening of his kidney functions lately.- He does not have significant proteinuria only 200 mg per 24 hours. - The goal is to delay the progression of kidney disease with good control of blood pressure, diabetes, and avoidance of NSAIDs. He does not qualify for Invokana at this time because he does not have significant proteinuria.- Most probably his chronic kidney disease is secondary to obesity plus minus diabetes mellitus type 2 and hypertension- Serologies were negative with the exception of p-ANCA which was positive. UA has no hematuria. Given that kidney function is stable and he does not have proteinuria I doubt that he has an ANCA associated vasculitis. We will get MPO and HI 3 antibody is a 4 his clinical status changes.- SPEP and light chain ratio along with C3 and C4 are within normal limits.Follow up:6 MONTHS Functional Status Description No Information Available Mental Status Description No Information Available Referrals Description No Information Available
--- OUTSIDE RECORDS SUMMARY | 2019-03-24 10:02 | XMS REPORT | Continuity of Care Document ---
:1955 External Reference #:[id number] Author Name Miesha Chou MD (transmitted by agent of provider Sindhu Suarez) Address [address], [address] [place] [address] Care Team Providers Name Role Phone Salazar Childress MD - Internal Care Team Information Development System Efficiency Manager Medicine Problems Active Problems Provider Date Cellulitis [...] is a former smoker Smoking Status Reviewed: 02/05/19 Patient is a former smoker Allergies, Adverse [...] Laurent, 11/29/2011 5-325mg Tablets prn pain M.D. Teofilo Inject 0.5 mL every Unknown 1.5mg/0.5ML week [...] by oral route Tablets for 3 days. Lorazepam take 1 tablet 1 Unknown [...] Unknown thiazide Mouth Every Day 20-12.5mg Tablets Buspirone HCL Take 1 tablet twice Unknown 5mg Tablets a day by oral route for 30 days. Immunizations Description No Information Available Vital Signs Date Vital Result Comment 02/05/2019 10:44am Height 70 inches 5'10" Weight 375.00 lb Heart Rate 81 /min BP Systolic Sitting 125 mmHg Right arm large cuff BP Diastolic Sitting 77 mmHg Right arm large cuff O2 % BldC Oximetry 96 % room air BMI (Body Mass Index) 53.8 kg/m2 07/19/2018 10:11am Height 70 inches 5'10" Weight 375.00 lb BP Systolic 120 mmHg BP Diastolic 80 mmHg BMI (Body Mass Index) 53.8 kg/m2 Results Description No Information Available Procedures Description No Information Available Medical Devices Description No Information Available Encounters Description No Information Available Assessments Date Code Description Provider 02/05/2019 E11.21 Type 2 diabetes mellitus with diabetic nephropathy Miesha Chou MD 02/05/2019 I12.9 Hypertensive chronic kidney disease with stage 1 Miesha Chou MD through stage 4 chronic kidney disease, or unspecified chronic kidney disease 02/05/2019 E66.01 Morbid (severe) obesity due to excess calories Miesha Chou MD 02/05/2019 R80.9 Proteinuria, unspecified Miesha Chou MD Plan of Treatment Future Appointment(s):03/05/2019 11:00 am - Miesha Chou MD at [facility] [id number] /16/2019 - Miesha Chou MDE11.21 Type 2 diabetes mellitus with diabetic wspggysqvbcY02.9 Hypertensive chronic kidney disease with stage 1 through stage 4 chronic kidney disease, or unspecified chronic kidney mrrelmpT30.01 Morbid ( severe) obesity due to excess pfzgafuiR51.9 Proteinuria, unspecifiedFollow up:4 - 6 WEEKS Functional Status Description No Information Available Mental Status Description No Information Available Referrals Description No Information Available
[2019-03-24 10:24] VITALS: BP 122/71
--- NOTE | 2019-03-24 10:39 | UC ---
Respiratory Complaint HPI - HPI Summary HPI Summary: Patient is 64 year old , who present today to the urgent care with sinus congestion for past 4 weeks. He has a history of COPD and asthma and also uses CPAP. He has been seen by his PCP for sinus pain and has been using the nasal spray. Symptoms progressively getting worse. Now coughing with greenish phlegm . Associated postnasal drip . Pressure in the sinuses Using albuterol and nebulizer prn w/ some relief. No fever. Denies any chest pain or shortness of breath. No nausea vomiting diarrhea or constipation. - History of Current Complaint Chief Complaint: UCRespiratory Stated Complaint: FLU SYMP Time Seen by Provider: 03/24/19 10:35 Hx Obtained From: Patient Pain Intensity: 0 - Allergies/Home Medications Allergies/Adverse Reactions: Allergies Allergy/AdvReac Type Severity Reaction Status Date / Time metformin Allergy Rash Verified 03/24/19 10:17 PMH/Surg Hx/FS Hx/Imm Hx - Additional Past Medical History Additional PMH: Past Medical History : Hypertension, COPD, diabetes mellitus, asthma, hypothyroidism, obstructive sleep apnea for which he uses CPAP Past Surgical History:EAR DRUM SURGERY 1963 [place] BOTH EARS -CLEARED WITH CT OF IAC BY DR SERRANO - CT OF LSP ALREADY DONE - SUSANNA Suarez [place] [facility] [place] tongue biopsy and #30 tooth extraction - [place] Nov 2016 Family History : non contributory Social History : Daily beer, former smoker, no drug use. Lives with family . Previously Healthy: Yes Other History Of: Anticoagulant Therapy - Xeralto - Surgical History Surgical History: Yes Surgery Procedure, Year, and Place: EAR DRUM SURGERY 1963 [place] BOTH EARS - CLEARED WITH CT OF IAC BY DR SERRANO - CT OF LSP ALREADY DONE - SUSANNA Suarez RN/MRI. [place] [facility] ( W/ PLATE). tongue biopsy and #30 tooth extraction - [place] Nov 2016 - Family History Known Family History: Positive: Diabetes, Other - both parents passed from cancer Family History: Denies FHx anesthesia reaction - Social History Alcohol Use: Daily Alcohol Amount: 2-4 beers/day Substance Use Type: None Substance Use Comment - Amount & Last Used: medical marijuana Smoking Status (MU): Former Smoker Amount Used/How Often: 1 ppd for 40 yrs When Did the Patient Quit Smoking/Using Tobacco: 2008 - Immunization History Most Recent Influenza Vaccination: Oct 2017 Most Recent Tetanus Shot: 2012 Most Recent Pneumonia Vaccination: 2 years ago Review of Systems All Other Systems Reviewed And Are Negative: Yes Constitutional: Positive: Negative. Negative: Fever Skin: Positive: Negative Eyes: Positive: Negative ENT: Positive: Nasal Discharge, Sinus Congestion, Sinus Pain/Tenderness, Other - PND Respiratory: Positive: Cough - productive Cardiovascular: Positive: Negative Gastrointestinal: Positive: Negative Genitourinary: Positive: Negative Motor: Positive: Negative Neurovascular: Positive: Negative Musculoskeletal: Positive: Negative Neurological: Positive: Negative Psychological: Positive: Negative Is Patient Immunocompromised?: No Physical Exam - Summary Physical Exam Summary: Physical Exam: Const: Appears well. No signs of apparent distress present. Alert and oriented x 3. Musculo: Walks with a normal gait. Head/Face: Atraumatic, normocephalic on inspection. Eyes: EOMI and PERRLA in both eyes. Conjunctivae clear. No discharge noted ENT: Hearing normal, TM normal appearing bilaterally, non bulging , non erythematous . There is tenderness to palpation on maxillary and frontal sinus. There is mild pharyngeal erythema without any exudates with cobblestoning . Uvula is midline. No cervical or submandibular lymphadenopathy noted. Respiratory: Respirations are unlabored. Lungs clear to auscultation bilaterally, no wheezing , rhonchi or rales noted . CVS: Regular rate and Rhythm, S1S2 normal , no murmurs identified. Extremities: Peripheral circulation is grossly normal. Pulses 2+ Abdomen : Soft non tender , nondistended , Bowel sounds present . No guarding , rebound tenderness or rigidity noted. Skin: No lesions or rash located on the upper extremities or on the lower extremities. Neuro: Cranial nerves II to XII intact, motor and sensory intact. DTR Intact bilaterally. Mood is normal. Affect is normal. Triage Information Reviewed: Yes Vital Signs: Initial Vital Signs Temp 97.7 F 03/24/19 10:20 Pulse 81 03/24/19 10:20 Resp 16 03/24/19 10:20 BP 122/71 03/24/19 10:20 Pulse Ox 96 03/24/19 10:20 Vital Signs Reviewed: Yes Respiratory Course/Dx - Course Course Of Treatment: Symptoms consistent with sinusitis and has been going on for over 4 weeks with worsening now. Plan to treat it with antibiotics. E prescribed to the pharmacy Follow with primary care doctor - Differential Dx/Diagnosis Provider Diagnosis: Sinusitis, acute maxillary Discharge ED - Sign-Out/Discharge Documenting (check all that apply): Patient Departure All imaging exams completed and their final reports reviewed: No Studies - Discharge Plan Condition: Stable Disposition: HOME Prescriptions: Amoxicillin/Clavulanate TAB* [Augmentin TAB 875*] 875 mg PO BID 14 Days #28 tab Patient Education Materials: Sinusitis (ED) Referrals: Salazar Childress MD [Primary Care Provider] - 1 Week Additional Instructions: Please start taking the medication as prescribed to the pharmacy . Continue using her inhalers Follow up with your primary care doctor in 1 week Patients blood pressure slightly high in Urgent care today in prehypertensive range , plan follow up with PCP for better control Return to Urgent care / ER if symptoms get worse. - Billing Disposition and Condition Condition: STABLE Disposition: Home
== END 2019-03-24 11:09 | disposition home or self-care (01) ==
LOC: UCCORT 09:19
DX: J01.00 Acute maxillary sinusitis, unspecified (principal); I10 Essential (primary) hypertension; E11.9 Type 2 diabetes mellitus without complications; J45.909 Unspecified asthma, uncomplicated; G47.33 Obstructive sleep apnea (adult) (pediatric); Z88.8 Allergy status to other drugs, medicaments and biological substances; Z87.891 Personal history of nicotine dependence
CPT/HCPCS: 99212; G0463

== ENCOUNTER 2020-05-17 10:59 | Inpatient (IN) ==
[2020-05-17] MEDS ORDERED: Magnesium Sulfate IV 1GM/100ML 1 GM/100 ML BAG IV ONE (11:13)
[2020-05-17] MEDS ORDERED: NS 0.9% 1000 ml BAG 1,000 ML IV ONE (11:13)
[2020-05-17] MEDS ORDERED: Metoprolol Tartrate 5 mg VIAL 5 ml VIAL (1 mg/ml) IV ONE (11:14)
[2020-05-17] MEDS ORDERED: Diltiazem IV push/loading dose 5 MG/ML 5 ML vial (25 mg) IV SLOW PU ONE (11:21)
[2020-05-17 11:46] LABS: INR 1.37 (0.82-1.09)
[2020-05-17 11:48] LABS: ABS Eosinophils 0.1 10^3/ul (0-0.6); ABS Lymphocytes 0.7 10^3/ul (1.0-4.8); ABS Monocytes 0.5 10^3/ul (0-0.8); ABS Neutrophils 4.6 10^3/ul (1.5-7.7); Eosinophil % 2.4 %; Hematocrit 42 % (42-52); Hemoglobin 13.9 g/dL (14.0-18.0); Mean Corpuscular HGB Conc 33 g/dL (31-36); Mean Corpuscular Hemoglobin 30 pg (27-31); Mean Corpuscular Volume 89 fL (80-94); Mean Platelet Volume 9.1 fL (7.4-10.4); Platelet Count 195 10^3/uL (150-450); Red Blood Count 4.71 10^6 /uL (4.18-5.48); Red Cell Distribution Width 14 % (10-15)
[2020-05-17 12:07] LABS: Albumin 3.9 g/dL (3.2-5.2); Albumin/Globulin Ratio 1.3 (1-3); BUN/Creatinine Ratio 17.2 (8-20); Calcium 9.3 mg/dL (8.6-10.3); EGFR African American 76.7 (>60); EGFR Non-African American 63.4 (>60); Potassium 4.5 mmol/L (3.5-5.0); Total Bilirubin 0.4 mg/dL (0.2-1.0); Total Protein 6.9 g/dL (6.4-8.9)
[2020-05-17 12:09] LABS: Troponin I 0.01 ng/mL (<0.03)
[2020-05-17] MEDS ORDERED: Iodixanol (CONTRAST) 320 MG/ML 100 ML SDV IV ONE (12:13)
[2020-05-17] MEDS ORDERED: Digoxin IV 0.5 MG/2 ML AMP (0.25 MG/ML) IV SLOW PU ONE ×3 (12:43→18:43)
[2020-05-17] MEDS ORDERED: Diltiazem (ADVAN VIAL) 100 MG/100 ML ADDV.BAG IV SCH (13:00)
[2020-05-17] MEDS ORDERED: oxyCODONE/Acetamin 10/325(NF) TAB PO PRN (13:24)
[2020-05-17] MEDS ORDERED: Albuterol HFA INHALER 8 gm MDI INH PRN (13:29)
[2020-05-17] MEDS: oxyCODONE/Acetamin 5/325 mg TAB PO PRN ×2 (14:02→22:09)
[2020-05-17] MEDS ORDERED: Nicotine GUM 2MG FRUIT FLAVOR PO PRN (17:00)
[2020-05-17] MEDS: Metoprolol Tartrate 5 mg VIAL 5 ml VIAL (1 mg/ml) IV PRN ×2 (17:15→21:08)
[2020-05-17] MEDS: Mometasone/Formoter 200/5 MDI INH SCH (19:24)
[2020-05-17 20:32] LABS: Magnesium 1.7 mg/dL (1.9-2.7)
[2020-05-17] MEDS ORDERED: Magnesium Sulfate 2 gm BAG 2 GM/50 ML BAG IVPB ONE (20:43)
[2020-05-18] MEDS ORDERED: Digoxin IV 0.5 MG/2 ML AMP (0.25 MG/ML) IV SLOW PU ONE ×3 (00:38→06:28)
[2020-05-18 05:56] LABS: Hematocrit 40 % (42-52); Hemoglobin 13.3 g/dL (14.0-18.0); Mean Corpuscular HGB Conc 33 g/dL (31-36); Mean Corpuscular Hemoglobin 29 pg (27-31); Mean Corpuscular Volume 89 fL (80-94); Mean Platelet Volume 8.9 fL (7.4-10.4); Platelet Count 159 10^3/uL (150-450); Red Blood Count 4.51 10^6 /uL (4.18-5.48); Red Cell Distribution Width 14 % (10-15); White Blood Count 4.7 10^3/uL (3.5-10.8)
[2020-05-18 06:09] LABS: BUN/Creatinine Ratio 18.4 (8-20); Calcium 9.2 mg/dL (8.6-10.3); EGFR African American 93.2 (>60); Magnesium 2.2 mg/dL (1.9-2.7); Phosphorus 3.4 mg/dL (2.5-5.0); Potassium 4.3 mmol/L (3.5-5.0)
[2020-05-18 06:10] LABS: INR 1.36 (0.82-1.09)
[2020-05-18] MEDS: Mometasone/Formoter 200/5 MDI INH SCH (07:17)
[2020-05-18] MEDS ORDERED: Flumazenil 0.5 mg/5 ml 0.1 MG/ML 5 ml VIAL ONE (09:47)
[2020-05-18] MEDS ORDERED: Naloxone 4 mg VIAL 0.4 MG/ML 10 ml VIAL (4 mg) ONE (09:47)
[2020-05-18] MEDS ORDERED: fentaNYL 250 mcg/5 ml 50 MCG/ML 5 ml VIAL (250 MCG) ONE (09:47)
[2020-05-18] MEDS ORDERED: Midazolam 10 mg/10 ml VIAL 1 mg/ml 10 ml VIAL (10 mg) ONE (09:47)
[2020-05-18] MEDS ORDERED: Norepinephrine 16MCG/ML IVPRE 4,000 MCG/250 ML BAG IV ONE (09:48)
[2020-05-18 15:15] VITALS: BP 124/74
[2020-05-18] MEDS: oxyCODONE/Acetamin 5/325 mg TAB PO PRN (16:25)
== END 2020-05-18 16:45 | disposition home or self-care (01) | DRG 310 ==
LOC: ED 10:59 → ICU 13:07
PROVIDERS: ADMIT Internal Medicine Critical Care Medicine; ATTEND Internal Medicine Critical Care Medicine

== ENCOUNTER 2020-08-10 21:00 | Observation (INO) ==
[2020-08-10] MEDS ORDERED: Metoprolol Tartrate 5 mg VIAL 5 ml VIAL (1 mg/ml) IV ONE (21:40)
[2020-08-10 22:11] LABS: ABS Basophils 0.1 10^3/ul (0-0.2); ABS Eosinophils 0.2 10^3/ul (0-0.6); ABS Monocytes 0.7 10^3/ul (0-0.8); ABS Neutrophils 5.2 10^3/ul (1.5-7.7); Hematocrit 41 % (42-52); Hemoglobin 13.7 g/dL (14.0-18.0); Lymphocyte % 13.5 %; Mean Corpuscular HGB Conc 34 g/dL (31-36); Mean Corpuscular Hemoglobin 28 pg (27-31); Mean Corpuscular Volume 83 fL (80-94); Mean Platelet Volume 8.8 fL (7.4-10.4); Nucleated Red Blood Cells % 0.1; Platelet Count 184 10^3/uL (150-450); Red Blood Count 4.88 10^6 /uL (4.18-5.48); Red Cell Distribution Width 15 % (10-15); White Blood Count 7.1 10^3/uL (3.5-10.8)
[2020-08-10 22:24] LABS: INR 1.26 (0.82-1.09)
[2020-08-10 22:31] LABS: Albumin 3.8 g/dL (3.2-5.2); Albumin/Globulin Ratio 1.1 (1-3); Calcium 9.4 mg/dL (8.6-10.3); EGFR African American 96.6 (>60); EGFR Non-African American 79.8 (>60); Globulin 3.4 g/dL (2-4); Potassium 3.8 mmol/L (3.5-5.0); Total Bilirubin 0.4 mg/dL (0.2-1.0); Total Protein 7.2 g/dL (6.4-8.9)
[2020-08-10 22:33] LABS: Troponin I 0.01 ng/mL (<0.03)
[2020-08-10] MEDS ORDERED: Diltiazem IV push/loading dose 5 MG/ML 5 ML vial (25 mg) IV SLOW PU ONE (23:01)
[2020-08-10] MEDS ORDERED: Diltiazem (ADVAN VIAL) 100 MG/100 ML ADDV.BAG IV SCH (23:45)
[2020-08-11] MEDS ORDERED: Albuterol HFA INHALER 8 gm MDI INH PRN (00:41)
[2020-08-11] MEDS ORDERED: Dextrose 50% Syringe 50 ml 25 GM/50 ML SYRINGE IV PUSH PRN (02:42)
[2020-08-11] MEDS: Levalbuterol 0.63MG/3ML NEB UNIT OF USE INH SCH ×4 (03:26→15:12)
[2020-08-11 04:25] LABS: Troponin I 0.03 ng/mL (<0.03)
[2020-08-11] MEDS ORDERED: Cholecalciferol (VIT D3) 1,000 unit TAB PO SCH (09:00)
[2020-08-11] MEDS ORDERED: oxyCODONE/Acetamin 5/325 mg TAB PO SCH (09:00)
[2020-08-11] MEDS ORDERED: Mometasone/Formoter 200/5 MDI INH SCH (09:00)
[2020-08-11] MEDS ORDERED: SPIRIVA Respimat (tiotropium) 2.5 mcg/inh Inhaler INH SCH (09:00)
[2020-08-11] MEDS ORDERED: Potassium Chlor 10 meq TAB PO SCH (09:00)
[2020-08-11 10:00] LABS: ABS Eosinophils 0.2 10^3/ul (0-0.6); ABS Lymphocytes 0.9 10^3/ul (1.0-4.8); ABS Monocytes 0.5 10^3/ul (0-0.8); ABS Neutrophils 4.3 10^3/ul (1.5-7.7); Eosinophil % 3.1 %; Hematocrit 39 % (42-52); Lymphocyte % 14.9 %; Mean Corpuscular HGB Conc 33 g/dL (31-36); Mean Corpuscular Hemoglobin 28 pg (27-31); Mean Corpuscular Volume 83 fL (80-94); Mean Platelet Volume 8.8 fL (7.4-10.4); Platelet Count 170 10^3/uL (150-450); Red Blood Count 4.68 10^6 /uL (4.18-5.48); Red Cell Distribution Width 15 % (10-15); White Blood Count 5.8 10^3/uL (3.5-10.8)
[2020-08-11 10:14] LABS: Calcium 9.2 mg/dL (8.6-10.3); EGFR African American 73.1 (>60); EGFR Non-African American 60.4 (>60); Potassium 3.8 mmol/L (3.5-5.0)
[2020-08-11 10:17] LABS: Magnesium 1.7 mg/dL (1.9-2.7)
[2020-08-11 10:19] LABS: Troponin I 0.03 ng/mL (<0.03)
[2020-08-11] MEDS ORDERED: Magnesium Sulfate 2 gm BAG 2 GM/50 ML BAG IVPB ONE (10:31)
[2020-08-11 16:39] VITALS: BP 129/61
== END 2020-08-11 17:46 | disposition home or self-care (01) ==
LOC: ED 21:00 → OBSVTOIN 08-11 00:40 → ICU 08-11 00:40 → INTOOBSV 08-11 00:40 → MEDTELE 08-11 03:21
PROVIDERS: ADMIT Student in an Organized Health Care Education/Training Program; ATTEND Hospitalist

== ENCOUNTER 2021-02-26 05:22 | Inpatient (IN) ==
[2021-02-26] MEDS ORDERED: Metoprolol Tartrate 5 mg VIAL 5 ml VIAL (1 mg/ml) IV ONE ×2 (06:29→13:06)
[2021-02-26] MEDS ORDERED: Furosemide 40 mg/4 ml IV VIAL IV ONE (06:51)
[2021-02-26 07:00] LABS: ABS Lymphocytes 0.4 10^3/ul (1.0-4.8); ABS Monocytes 0.3 10^3/ul (0-0.8); ABS Neutrophils 8.4 10^3/ul (1.5-7.7); Eosinophil % 0.2 %; Hematocrit 41 % (42-52); Hemoglobin 13.2 g/dL (14.0-18.0); Lymphocyte % 4.6 %; Mean Corpuscular HGB Conc 33 g/dL (31-36); Mean Corpuscular Hemoglobin 27 pg (27-31); Mean Corpuscular Volume 84 fL (80-94); Mean Platelet Volume 8.3 fL (7.4-10.4); Platelet Count 206 10^3/uL (150-450); Red Blood Count 4.88 10^6 /uL (4.18-5.48); Red Cell Distribution Width 17 % (10-15); White Blood Count 9.2 10^3/uL (3.5-10.8)
[2021-02-26 07:12] LABS: INR 1.52 (0.86-1.15)
[2021-02-26 07:18] LABS: Albumin/Globulin Ratio 1.3 (1-3); C Reactive Protein 11.73 mg/L (<8.01); Calcium 8.8 mg/dL (8.6-10.3); Globulin 3.1 g/dL (2-4); Total Bilirubin 0.4 mg/dL (0.2-1.0); Total Protein 7.1 g/dL (6.4-8.9); eGFR CKD-EPI 64.3 (>60)
[2021-02-26 07:19] LABS: Troponin I 0.02 ng/mL (<0.03)
[2021-02-26 07:26] LABS: Potassium 5.1 mmol/L (3.5-5.0)
[2021-02-26] MEDS ORDERED: Diltiazem IV push/loading dose 5 MG/ML 5 ML vial (25 mg) IV SLOW PU ONE (07:34)
[2021-02-26 07:56] LABS: PCO2 Arterial 39 mmHg (35-45); PO2 Arterial 122 mmHg (80-100)
[2021-02-26] MEDS ORDERED: Diltiazem IV BAG D5W Premix 125 MG/125 ML BAG IV SCH (08:00)
[2021-02-26] MEDS ORDERED: Furosemide 40 mg/4 ml IV VIAL IV SLOW PU ONE (11:27)
[2021-02-26] MEDS ORDERED: Amiodarone 360 MG IVPREMIX 360 MG/200 ML BAG IV SCH ×4 (11:45→19:50)
[2021-02-26] MEDS: Furosemide IV 100 MG in NS 0.9% 100 ML TOTAL IV SCH ×2 (12:36→20:28)
[2021-02-26] MEDS ORDERED: .Amiodarone 24HR ONLY IV Protocol Order Note IV ONE (12:53)
[2021-02-26] MEDS ORDERED: Amiodarone 150 mg IVPREMIX 150 MG/100 ML BAG IV ONE ×2 (12:53→20:00)
[2021-02-26] MEDS ORDERED: Perflutren Lipid Microsphere 3 ML VIAL ONE (14:00)
[2021-02-26] MEDS ORDERED: Propofol 10 MG/ML 20 ML BTL ONE (14:01)
[2021-02-26] MEDS ORDERED: Sterile Water for Inj 0 ML ONE (14:01)
[2021-02-26] MEDS ORDERED: EPHEDrine (Pressors) 50 MG/ML VIAL ONE (14:01)
[2021-02-26] MEDS ORDERED: Phenylephrine 40 mcg/mL 10mL (400mcg) SYRINGE ONE ×2 (14:01)
[2021-02-26] MEDS ORDERED: fentaNYL 100 mcg/2 ml 50 MCG/ML VIAL ONE (14:01)
[2021-02-26] MEDS ORDERED: Midazolam 2 mg/2 ml VIAL 1 mg/ml 2 ml VIAL (2 mg) ONE (14:01)
[2021-02-26] MEDS ORDERED: Succinylcholine 200 mg VIAL 20 mg/ml 10 ml VIAL (200 mg) ONE (14:01)
[2021-02-26] MEDS ORDERED: Magnesium Sulfate 2 gm BAG 2 GM/50 ML BAG IVPB ONE (18:05)
[2021-02-26 18:27] LABS: Magnesium 1.9 mg/dL (1.9-2.7)
[2021-02-26] MEDS ORDERED: Amiodarone 360 MG IVPREMIX 360 MG/200 ML BAG IV ONE ×2 (18:36→20:10)
[2021-02-26] MEDS ORDERED: Ondansetron ODT 4 mg TAB 4 MG TAB SL PRN (20:04)
[2021-02-26] MEDS: Mometasone/Formoter 200/5 MDI INH SCH (20:21)
[2021-02-26] MEDS ORDERED: Simvastatin 40 mg TAB (NF) PO SCH (21:00)
[2021-02-26] MEDS: Triamcinolone 0.025% OINT 15 GM TUBE TOPICAL SCH (21:40)
[2021-02-26] MEDS: Insulin GLARGINE 100 un/ml 10 ml VIAL SUBCUT SCH (22:12)
[2021-02-26] MEDS: Senna TAB 8.6 mg TAB PO SCH (22:13)
[2021-02-26] MEDS: Amiodarone 360 MG IVPREMIX 360 MG/200 ML BAG IV SCH (22:26)
[2021-02-26] MEDS ORDERED: Flu vaccine *QUAD* 2021-22* 0.5 ML SYRINGE IM ONE (23:24)
[2021-02-26] MEDS: Levalbuterol 0.63MG/3ML NEB UNIT OF USE INH SCH (23:58)
[2021-02-27] MEDS ORDERED: Amiodarone 360 MG IVPREMIX 360 MG/200 ML BAG IV SCH (02:10)
[2021-02-27] MEDS: Furosemide IV 100 MG in NS 0.9% 100 ML TOTAL IV SCH (03:50)
[2021-02-27 05:42] LABS: Calcium 8.9 mg/dL (8.6-10.3); Potassium 3.8 mmol/L (3.5-5.0); eGFR CKD-EPI 63.7 (>60)
[2021-02-27] MEDS: Levalbuterol 0.63MG/3ML NEB UNIT OF USE INH SCH ×5 (06:56→22:45)
[2021-02-27] MEDS: SPIRIVA Respimat (tiotropium) 2.5 mcg/inh Inhaler INH SCH ×2 (06:56→08:23)
[2021-02-27] MEDS: Mometasone/Formoter 200/5 MDI INH SCH ×2 (06:57→20:20)
[2021-02-27] MEDS: Polyethylene Glycol 3350 17 GM PACKET PO SCH (07:25)
[2021-02-27] MEDS: Iron Sucrose 200 MG in NS 0.9% 100 ml BAG 100 ML IVPB SCH (07:25)
[2021-02-27] MEDS ORDERED: Magnesium Sulfate 2 gm BAG 2 GM/50 ML BAG IVPB ONE (07:57)
[2021-02-27] MEDS ORDERED: Potassium Chlor 20 meq TAB.ER PO ONE (07:57)
[2021-02-27] MEDS ORDERED: Potassium Chlor 10 meq TAB PO SCH (09:00)
[2021-02-27] MEDS ORDERED: Flu vaccine *QUAD* 2021-22* 0.5 ML SYRINGE IM ONE (09:00)
[2021-02-27] MEDS ORDERED: Cholecalciferol (VIT D3) 1,000 unit TAB PO SCH (09:00)
[2021-02-27] MEDS: Triamcinolone 0.025% OINT 15 GM TUBE TOPICAL SCH ×2 (10:04→20:36)
[2021-02-27] MEDS: Fluticasone NASAL SPRAY 50MCG 16 gm SPRAY BTL INTRANASAL SCH (10:04)
[2021-02-27] MEDS: Furosemide 40 mg/4 ml IV VIAL IV SCH ×2 (10:07→14:25)
[2021-02-27] MEDS: Nicotine GUM 4MG FRUIT FLAVOR PO PRN ×2 (10:07→14:23)
[2021-02-27] MEDS ORDERED: Dextrose 50% Syringe 50 ml 25 GM/50 ML SYRINGE IV PUSH PRN (12:22)
[2021-02-27] MEDS: Amiodarone 360 MG IVPREMIX 360 MG/200 ML BAG IV SCH (14:24)
[2021-02-27] MEDS: Nicotine GUM 2MG FRUIT FLAVOR PO PRN ×2 (14:46→17:45)
[2021-02-27] MEDS ORDERED: COVID-19 VACCINE, MRNA(MODERNA)/PF 100 MCG/0.5 ML IM ONE (15:00)
[2021-02-27] MEDS ORDERED: Amiodarone 400 mg TAB PO ONE (15:27)
[2021-02-27 17:34] LABS: Calcium 9.2 mg/dL (8.6-10.3); Magnesium 2.1 mg/dL (1.9-2.7); Potassium 3.9 mmol/L (3.5-5.0); eGFR CKD-EPI 70.3 (>60)
[2021-02-27] MEDS: Amiodarone 400 mg TAB PO SCH (20:32)
[2021-02-27] MEDS: Insulin GLARGINE 100 un/ml 10 ml VIAL SUBCUT SCH (20:34)
[2021-02-27] MEDS: Senna TAB 8.6 mg TAB PO SCH (20:34)
[2021-02-27 23:16] LABS: Urine Appearance Clear; Urine Bilirubin Negative (Negative); Urine Blood Negative (Negative); Urine Color Straw; Urine Glucose Negative (Negative); Urine Ketones Negative (Negative); Urine Nitrite Negative (Negative); Urine Protein Negative (Negative); Urine Specific Gravity 1.008 (1.002-1.030); Urine Urobilinogen Negative (Negative)
[2021-02-28] MEDS: Nicotine GUM 2MG FRUIT FLAVOR PO PRN (06:21)
[2021-02-28] MEDS: Levalbuterol HFA INHALER MDI INH SCH ×3 (07:34→15:39)
[2021-02-28] MEDS: Mometasone/Formoter 200/5 MDI INH SCH (07:35)
[2021-02-28] MEDS: SPIRIVA Respimat (tiotropium) 2.5 mcg/inh Inhaler INH SCH (07:35)
[2021-02-28] MEDS: Amiodarone 400 mg TAB PO SCH (08:22)
[2021-02-28] MEDS: Polyethylene Glycol 3350 17 GM PACKET PO SCH (08:24)
[2021-02-28] MEDS: Furosemide 40 mg/4 ml IV VIAL IV SCH (08:30)
[2021-02-28] MEDS: Triamcinolone 0.025% OINT 15 GM TUBE TOPICAL SCH (08:30)
[2021-02-28] MEDS: Fluticasone NASAL SPRAY 50MCG 16 gm SPRAY BTL INTRANASAL SCH (08:35)
[2021-02-28] MEDS: Iron Sucrose 200 MG in NS 0.9% 100 ml BAG 100 ML IVPB SCH (10:04)
[2021-02-28 11:52] VITALS: BP 122/68
== END 2021-02-28 16:07 | disposition home or self-care (01) | DRG 308 ==
LOC: ED 05:22 → EDHOLD 18:43 → ICU 19:25 → MEDTELE 02-27 17:25
PROVIDERS: ADMIT Internal Medicine; ATTEND Internal Medicine